=== PATIENT | male | born 1935 | race Caucasian/White ===

== ENCOUNTER 2019-02-19 20:48 | Inpatient (IN) | payer MEDICARE ==
[~2019-02-19] VITALS: Ht 182.9 cm; Wt 117.9 kg
[2019-02-19] MEDS ORDERED: PROSCAR5 MG PO (21:12)
[2019-02-19] MEDS ORDERED: HYDROCODON-ACE1 EAC7 PO (21:13)
[2019-02-19] MEDS ORDERED: VESICARE10 MG PO (21:14)
[2019-02-19] MEDS ORDERED: SENNA8.8 MG/5 M (21:14)
[2019-02-19] MEDS ORDERED: NORVASC10 MG PO (21:15)
[2019-02-19] MEDS ORDERED: ZYRTEC10 MG PO (21:16)
[2019-02-19] MEDS ORDERED: CELEXA20 MG PO (21:17)
[2019-02-19] MEDS ORDERED: METOPROLOL TART25 MG PO (21:17)
[2019-02-19 22:05] LABS: APPEARANCE CLEAR (CLEAR); BILIRUBIN NEGATIVE (NEGATIVE); COLOR YELLOW (YELLOW); GLUCOSE NEGATIVE (NEGATIVE); KETONE NEGATIVE (NEGATIVE); NITRITE NEGATIVE (NEGATIVE); PROTEIN TRACE mg/dL (NEGATIVE); UROBILINOGEN NORMAL (NORMAL)
[2019-02-19 22:06] LABS: BASOPHILS 0.5 % (0-2); EOSINOPHILS 3.8 % (0-7); HEMATOCRIT 34.6 % (42.0-54.0); HEMOGLOBIN 11.1 g/dL (13.5-17.5); IMMATURE GRANULOCYTES 0.1 % (0-5); LYMPHOCYTES 27.8 % (15-50); MCH 27.8 pg (26.0-34.0); MCHC 32.1 g/dL (31.0-37.0); MCV 86.7 fL (80.0-100.0); MEAN PLATELET VOLUME 8.8 fL (7.4-10.4); MONOCYTES 9.4 % (2-11); NEUTROPHILS 58.4 % (40-80); PLATELET COUNT 220 10x3/uL (130-400); RBC 3.99 10x6/uL (4.20-6.10); RDW 16.1 % (11.5-14.5); WBC 8.7 10x3/uL (4.8-10.8)
[2019-02-19 22:28] LABS: ANION GAP 13.4 mmol/L (8-16); BILIRUBIN - TOTAL 0.36 mg/dL (0.2-1.3); CALCIUM 9.7 mg/dL (8.5-10.1); CARBON DIOXIDE 25.4 mmol/L (21.0-32.0); CREATININE - SERUM 2.9 mg/dL (0.6-1.3); POTASSIUM - SERUM 5.8 mmol/L (3.5-5.1); PROTEIN - SERUM 7.1 g/dL (6.4-8.2)
--- NOTE | 2019-02-19 22:32 | NUR ---
BLOOD SUGAR 49. CRITICAL LAB TAKEN BY KYLAH LEMUSAQUATIC ECOLOGIST NURSE. KYLAH LEMUS GAVE 1-AMP OF D50. [address] ARNOLD
[2019-02-20 02:30] VITALS: BP 178/73; BMI 35.3
[2019-02-20 06:16] VITALS: BP 178/73
--- NOTE | 2019-02-20 07:10 | NUR ---
REPORT RECIEVED FROM SET UP MECHANIC AUTOMATIC LINE AND PATIENT CARE ASSUMED. PATIENT LAYING IN BED ON BACK AWAKE, ALERT AND ORIENTED X 4. VSS. PATIENT DENIES ANY NEEDS OR PAIN. WILL CONTINUE WITH PLAN OF CARE. SR UP X 2 BED IN LOW POSITION AND CALL LIGHT IN REACH.
[2019-02-20 08:24] VITALS: BP 157/69
[2019-02-20 09:34] LABS: BASOPHILS 0.5 % (0-2); EOSINOPHILS 4.8 % (0-7); HEMOGLOBIN 11.7 g/dL (13.5-17.5); IMMATURE GRANULOCYTES 0.1 % (0-5); LYMPHOCYTES 19.3 % (15-50); MCH 28.3 pg (26.0-34.0); MCHC 32.5 g/dL (31.0-37.0); MEAN PLATELET VOLUME 9.2 fL (7.4-10.4); MONOCYTES 9.8 % (2-11); NEUTROPHILS 65.5 % (40-80); PLATELET COUNT 218 10x3/uL (130-400); RBC 4.14 10x6/uL (4.20-6.10); RDW 16.3 % (11.5-14.5); WBC 7.9 10x3/uL (4.8-10.8)
[2019-02-20 09:44] LABS: ALBUMIN 3.1 g/dL (3.4-5.0); ANION GAP 13.3 mmol/L (8-16); BILIRUBIN - TOTAL 0.46 mg/dL (0.2-1.3); CALCIUM 9.4 mg/dL (8.5-10.1); CARBON DIOXIDE 25.9 mmol/L (21.0-32.0); COMPLEMENT C4 22.9 mg/dL (17.4-52.2); CREATININE - SERUM 2.7 mg/dL (0.6-1.3); POTASSIUM - SERUM 5.2 mmol/L (3.5-5.1); PROTEIN - SERUM 6.8 g/dL (6.4-8.2)
[2019-02-20 11:26] LABS: ERYTHROCYTE SEDIMENTATION RATE 24 mm/hr (0-20)
[2019-02-20 11:36] VITALS: BP 134/63
--- NOTE | 2019-02-20 14:37 | NUR ---
PATIENT COMPLAINS OF NAUSEA. MEDICATED PER MAR WITH ZOFRAN. WILL CONTINUE TO MONITOR. SR UP X 2 BED IN LOW POSITION AND CALL LIGHT IN REACH.
--- NOTE | 2019-02-20 15:15 | NUR ---
PATIENT STATES THAT FEELS MUCH BETTER. COLLECTED URINE SPECIMEN FROM DAVSI. WILL CONTINUE TO MONITOR.
[2019-02-20 15:23] VITALS: BP 142/73
--- NOTE | 2019-02-20 15:42 | NUR ---
PATIENT RESTING COMFORTABLY IN BED. WILL CONTINUE TO MONITOR. SR UP X 2 BED IN LOW POSITION AND CALL LIGHT IN REACH.
[2019-02-20 15:53] LABS: APPEARANCE CLEAR (CLEAR); BILIRUBIN NEGATIVE (NEGATIVE); COLOR YELLOW (YELLOW); GLUCOSE NEGATIVE (NEGATIVE); KETONE NEGATIVE (NEGATIVE); NITRITE NEGATIVE (NEGATIVE); PROTEIN 1+ mg/dL (NEGATIVE); UROBILINOGEN NORMAL (NORMAL)
[2019-02-20 15:55] LABS: RED CELLS - URINE 25-50 /hpf (0-5); WHITE CELLS - URINE 0-5 /hpf (0-5)
[2019-02-20 15:56] LABS: BACTERIA FEW /hpf (NONE SEEN)
[2019-02-20 16:04] LABS: CREATININE - URINE 74.7 mg/dL (30-125); PROTEIN - URINE 146.6 mg/dL (0.0-11.9)
--- NOTE | 2019-02-20 16:59 | MORECARE ---
CASE MANAGEMENT DISCHARGE SUMMARY PATIENT: GUANACO VALDEZ UNIT: [id number] ADM DATE: 02/20/19 AGE: 84 : 36 SEX: M ROOM/BED: D.2102 AUTHOR: GEO VELÁZQUEZ PHYSICIAN: REFERRING PHYSICIAN: DENNIS BARAJAS MD DATE OF SERVICE: 02/20/19 Discharge Plan Patient Name: GUANACO VALDEZ Facility: [facility] : 1935 Planned Disposition: VA facility Anticipated Discharge Date: 02/20/19 Discharge Date: Expected LOS: 1 Initial Reviewer: [id number] Initial Review Date: 02/20/2019 Generated: 02/20/19 5:58 pm DCPIA - Discharge Planning Initial Assessment Updated by [id number]: Carroll Wick on 02/20/19 4:56 pm * Is the patient Alert and Oriented? Yes * How many steps to enter\exit or inside your home? RAMP * PCP [facility] * Pharmacy [facility] IN [place], [place]. * Preadmission Environment Home with Family * ADLs Partial Dependent * Partial ADLs (Assistance needed) Bathing Medication Management * Equipment Bedside Commode Cane Power Chair or Electric Scooter Shower Chair Wheelchair * Other Equipment [facility] - MEDICAL EQUIPMENT PROVIDER * List name and contact numbers for known caregivers / representatives who currently or will assist patient after discharge: BHAVIK VALDEZ, SPOUSE, LOU VALDEZ, DTR, * Verbal permission to speak to the caregivers and representatives has been obtained from the patient. Yes * Community resources currently utilized Private Duty Care [place] Services * Please name any agencies selected above. PRIVATE DUTY PERSONAL CARE FROM [place], 5 DAYS WEEKLY, 2 HOURS PER DAY * Additional services required to return to the preadmission environment? No * Can the patient safely return to the preadmission environment? Yes * Has this patient been hospitalized within the prior 30 days at any hospital? No Patient Name: GUANACO VALDEZ Page [id number] at 1154 All edits/amendments must be made on the electronic document DICTATION DATE: 04/1657 FINANCIAL INVESTMENT MANAGER: DM 02/20/191657 RPT#: [id number] DC DATE: STATUS: ADM IN [facility] [address] [place] [address] END OF REPORT
--- NOTE | 2019-02-20 17:09 | MORECARE ---
CASE MANAGEMENT DISCHARGE SUMMARY PATIENT: GUANACO VALDEZ UNIT: [id number] ADM DATE: 02/20/19 AGE: 84 : 36 SEX: M ROOM/BED: D.2102 AUTHOR: GEO VELÁZQUEZ PHYSICIAN: REFERRING PHYSICIAN: DENNIS BARAJAS MD DATE OF SERVICE: 02/20/19 Discharge Plan Patient Name: GUANACO VALDEZ Facility: [facility]:[place] : 1935 Planned Disposition: VA facility Anticipated Discharge Date: 02/20/19 Discharge Date: Expected LOS: 1 Initial Reviewer: [id number] Initial Review Date: 02/20/2019 Generated: 02/20/19 6:09 pm Comments DCP- Discharge Planning Updated by [id number]: Carroll Wick on 02/20/19 4:[address] Patient Name: GUANACO VALDEZ Admission Status: ER Accout number: [id number] Admission Date: 02-20-2019 : 1935 Admission Diagnosis: Attending: DENNIS BARAJAS Current LOS: 1 Anticipated DC Date: 02-20-2019 Planned Disposition: [place] facility Primary Insurance: MEDICARE PART A ONLY PLANNED EXTERNAL PROVIDER: [facility] Discharge Planning Comments: CM RECEIVED ORDER FOR TRANSFER TO [place] [facility] OR TRANSFER BACK TO [facility]. CM MET WITH PT IN ROOM TO DISCUSS DISCHARGE PLANNING AND NEEDS. PT REPORTS LIVING AT HOME DEPENDENTLY WITH SPOUSE. PT HAS PERSONAL CARE FROM [place] 5 DAYS PER WEEK, 2 HOURS PER DAY TO ASSIST WITH BATH, PT'S SPOUSE ASSISTS WITH MEDICATION MANAGEMENT. PT HAS BEDSIDE COMMODE, CANE, POWER SCOOTER, SHOWER CHAIR AND WHEELCHAIR FROM THE [place]. CM DISCUSSED ORDER FOR TRANSFER. PT STATES HE WOULD LIKE TO TRANSFER TO [place] IN [place] IF POSSIBLE. . CM CALLED VA EXPEDITOR, GEMMA, , PROVIDED REQUEST FOR VA TRANSFER, RENAL CONSULTING SERVICES PROJECT MANAGER AND MED 2 CONTACT INFORMATION . GEMMA INFORMED CM THAT THE HEALTH PLAN MANAGER WOULD CONTACT THE HOSPITAL WHEN BED BECOMES AVAILABLE. CM WAITING BED TO BECOME AVAILABLE FOR VA TRANSFER, PT IS ON THE LIST. CM TO CONTINUE TO FOLLOW AND ASSIST NEEDED. Blood Bank Laboratory Technician: Carroll Wick DCPIA - Discharge Planning Initial Assessment Updated by [email or web address]: Carroll Wick on 02/20/19 4:56 pm * Is the patient Alert and Oriented? Yes * How many steps to enter\exit or inside your home? RAMP * [facility] * [facility]acy [facility] IN [place], [place]. * Preadmission Environment Home with Family * ADLs Partial Dependent * Partial ADLs (Assistance needed) Bathing Medication Management * Equipment Bedside Commode Cane Power Chair or Electric Scooter Shower Chair Wheelchair * Other Equipment [facility] - MEDICAL EQUIPMENT PROVIDER * List name and contact numbers for known caregivers / representatives who currently or will assist patient after discharge: BHAVIK VALDEZ, SPOUSE, LOU VALDEZ, DTR, * Verbal permission to speak to the caregivers and representatives has been obtained from the patient. Yes * Community resources currently utilized Private Duty Care [place] Services * Please name any agencies selected above. PRIVATE DUTY PERSONAL CARE FROM [place], 5 DAYS WEEKLY, 2 HOURS PER DAY * Additional services required to return to the preadmission environment? No * Can the patient safely return to the preadmission environment? Yes * Has this patient been hospitalized within the prior 30 days at any hospital? No Last DP export: 02/20/19 3:59 p Patient Name: GUANACO VALDEZ Page [id number] at 1709 All edits/amendments must be made on the electronic document DICTATION DATE: 02/20/191707 MANAGER LONG TERM CARE: CARLITO 02/20/191707 RPT#: [id number] DC DATE: STATUS: ADM IN [facility] [address] [place] [address] END OF REPORT
--- NOTE | 2019-02-20 18:21 | NUR ---
PATIENT STABLE UNCHANGED.
--- NOTE | 2019-02-20 19:50 | NUR ---
RECIEVED BEDSIDE. ROUNDS COMPLETED. VSS, AAOX3, NO S/S OF RR DISTRESS. ABDOMEN APPEARS DISTENDED. LUNGS SOUNDS CRACKLY ON KRISTA/LLQ. BED EAGLE PROVIDED FOR PT PER PT REQUEST. WILL CPOC. CL IN REACH BED IN LOW.
[2019-02-20 20:00] VITALS: BP 145/65
--- NOTE | 2019-02-20 21:00 | NUR ---
FOUND PT VOMITING. PT STATES HE VOMITED THIS AM AM AND MED WAS GIVEN. 2ML ZOFRAN GIVEN AT THIS TIME. PT DENEIS ANY FURTHER NEEDS FOR COMFORT CARE WILL CTM.
--- NOTE | 2019-02-20 22:42 | NUR ---
PT C/O HEARTBURN. CALLED [employer]. SQL DATABASE ADMINISTRATOR ORDERED 20MG PEPCID [id number], ALSO STATE TO GIVE FIRST DOSE NOW.
[2019-02-21] VITALS: BP 135/59
[2019-02-21 04:00] VITALS: BP 147/68
[2019-02-21 05:54] LABS: BASOPHILS 0.5 % (0-2); EOSINOPHILS 2.2 % (0-7); HEMATOCRIT 35.5 % (42.0-54.0); HEMOGLOBIN 11.4 g/dL (13.5-17.5); IMMATURE GRANULOCYTES 0.1 % (0-5); LYMPHOCYTES 19.5 % (15-50); MCH 28.1 pg (26.0-34.0); MCHC 32.1 g/dL (31.0-37.0); MCV 87.4 fL (80.0-100.0); MEAN PLATELET VOLUME 9.1 fL (7.4-10.4); MONOCYTES 9.4 % (2-11); NEUTROPHILS 68.3 % (40-80); PLATELET COUNT 202 10x3/uL (130-400); RBC 4.06 10x6/uL (4.20-6.10); RDW 15.9 % (11.5-14.5); WBC 7.8 10x3/uL (4.8-10.8)
[2019-02-21 06:09] LABS: ALBUMIN 2.6 g/dL (3.4-5.0); ANION GAP 12.1 mmol/L (8-16); BILIRUBIN - TOTAL 0.44 mg/dL (0.2-1.3); CALCIUM 8.9 mg/dL (8.5-10.1); CARBON DIOXIDE 26.4 mmol/L (21.0-32.0); CREATININE - SERUM 2.4 mg/dL (0.6-1.3); POTASSIUM - SERUM 4.5 mmol/L (3.5-5.1); PROTEIN - SERUM 6.4 g/dL (6.4-8.2)
--- NOTE | 2019-02-21 07:27 | NUR ---
MORNING ROUNDS MADE. PT SITTING UP IN BED. DENIES PAIN AT THIS TIME. A/O X4. R AC IV SL. RM AIR. DAVIS IN PLACE, DRAINING BY GRAVITY, CLEAR YELLOW URINE NOTED. LUNGS CLEAR. HEART RRR. DENIES FURTHER CONCERNS AT THIS TIME. NON SKID SOCKS ON. BED LOWERED AND LOCKED. CL IN REACH. WILL CTM.
[2019-02-21 08:00] VITALS: BP 147/66
[2019-02-21 08:58] VITALS: Ht 182.9 cm; Wt 117.9 kg
--- NOTE | 2019-02-21 09:53 | NUR ---
PT SITTING UP IN EATING BREAKFAST. VITALS STABLE. TOOK MEDS WITHOUT DIFFICULTY. NS @ 75 CC/HR TO R AC. DRSG C/D/I. NO REDNESS OR EDEMA. DENIES PAIN AT THIS TIME. SAFETY PRECAUTIONS IN PLACE. WILL CTM.
--- NOTE | 2019-02-21 10:35 | NUR ---
[facility] CALLED TO GET PT INFORMATION FAXED TO [phone]. AWAITING INFORMATION.
[2019-02-21 11:13] LABS: ANA REFLEX - DIRECT Negative (Negative)
[2019-02-21 12:11] VITALS: BP 112/49
--- NOTE | 2019-02-21 12:22 | NUR ---
PT SITTING UP RESTING. STATED HE ENJOYED LUNCH. PT ASKED ME TO HAND HIM HIS BILL FOLD AND GLASSES FROM PERSONAL BELONGINGS BAG. HANDED PT HIS BLACK BILL FOLD AND HIS GOLD GLASSES. INFORMED PT TO NOT LOOSE HIS BILL FOLD AND HE COMMENTED "IT DOESNT HAVE ANY MONEY IN IT" NO FURTHER CONCERNS AT THIS TIME. WILL CTM.
--- NOTE | 2019-02-21 12:42 | NUR ---
I CONCUR WITH THE ASSESSMENT PERFORMED BY AB LARA
--- NOTE | 2019-02-21 14:37 | MORECARE ---
CASE MANAGEMENT DISCHARGE SUMMARY PATIENT: GUANACO VALDEZ UNIT: [id number] ADM DATE: 02/20/19 AGE: 84 : 36 SEX: M ROOM/BED: D.2102 AUTHOR: GEO VELÁZQUEZ PHYSICIAN: REFERRING PHYSICIAN: DENNIS BARAJAS MD DATE OF SERVICE: 02/21/19 Discharge Plan Patient Name: GUANACO VALDEZ Facility: [facility]:[place] : 1935 Planned Disposition: Acute Care Hospital Anticipated Discharge Date: 02/21/19 Discharge Date: Expected LOS: 1 Initial Reviewer: [email or web address] Initial Review Date: 02/20/2019 Generated: 02/21/19 3:37 pm Comments DCP- Discharge Planning Updated by [id number]: Carroll Wick on 02/20/19 4:[address] Patient Name: GUANACO VALDEZ Admission Status: ER Accout number: [id number] Admission Date: 02-20-2019 : 1935 Admission Diagnosis: Attending: DENNIS BARAJAS Current LOS: 1 Anticipated DC Date: 02-20-2019 Planned Disposition: [place] facility Primary Insurance: MEDICARE PART A ONLY PLANNED EXTERNAL PROVIDER: [facility] Discharge Planning Comments: CM RECEIVED ORDER FOR TRANSFER TO [place] [facility]ITAL OR TRANSFER BACK TO [facility]. CM MET WITH PT IN ROOM TO DISCUSS DISCHARGE PLANNING AND NEEDS. PT REPORTS LIVING AT HOME DEPENDENTLY WITH SPOUSE. PT HAS PERSONAL CARE FROM [place] 5 DAYS PER WEEK, 2 HOURS PER DAY TO ASSIST WITH BATH, PT'S SPOUSE ASSISTS WITH MEDICATION MANAGEMENT. PT HAS BEDSIDE COMMODE, CANE, POWER SCOOTER, SHOWER CHAIR AND WHEELCHAIR FROM THE [place]. CM DISCUSSED ORDER FOR TRANSFER. PT STATES HE WOULD LIKE TO TRANSFER TO [place] IN [place] IF POSSIBLE. . CM CALLED VA EXPEDITOR, GEMMA, , PROVIDED REQUEST FOR VA TRANSFER, RENAL GUN WELDER AND MED 2 CONTACT INFORMATION . GEMMA INFORMED CM THAT THE MINIATURE MODEL MAKER WOULD CONTACT THE HOSPITAL WHEN BED BECOMES AVAILABLE. CM WAITING BED TO BECOME AVAILABLE FOR VA TRANSFER, PT IS ON THE LIST. CM TO CONTINUE TO FOLLOW AND ASSIST NEEDED. Pamphlet Distributor: Carroll Wikc DCPIA - Discharge Planning Initial Assessment Updated by [id number]: Carroll Wick on 02/20/19 4:56 pm * Is the patient Alert and Oriented? Yes * How many steps to enter\exit or inside your home? RAMP * [facility]CP [facility] * [place]acy [place] [facility] IN [place], [place]. * Preadmission Environment Home with Family * ADLs Partial Dependent * Partial ADLs (Assistance needed) Bathing Medication Management * Equipment Bedside Commode Cane Power Chair or Electric Scooter Shower Chair Wheelchair * Other Equipment [facility] - MEDICAL EQUIPMENT PROVIDER * List name and contact numbers for known caregivers / representatives who currently or will assist patient after discharge: BHAVIK VALDEZ, SPOUSE, LOU VALDEZ, DTR, * Verbal permission to speak to the caregivers and representatives has been obtained from the patient. Yes * Community resources currently utilized Private Duty Care [place] Services * Please name any agencies selected above. PRIVATE DUTY PERSONAL CARE FROM [place], 5 DAYS WEEKLY, 2 HOURS PER DAY * Additional services required to return to the preadmission environment? No * Can the patient safely return to the preadmission environment? Yes * Has this patient been hospitalized within the prior 30 days at any hospital? No Last DP export: 02/20/19 4:09 p Patient Name: GUANACO VALDEZ Page 96617 at 1437 All edits/amendments must be made on the electronic document DICTATION DATE: 02/21/191435 SERVICE DELIVERY SUPERVISOR: CARLITO 02/21/191435 RPT#: [id number] DC DATE: STATUS: ADM IN [facility] [address] [place] [address] END OF REPORT
--- NOTE | 2019-02-21 14:45 | MORECARE ---
CASE MANAGEMENT DISCHARGE SUMMARY PATIENT: GUANACO VALDEZ UNIT: [id number] ADM DATE: 02/20/19 AGE: 84 : 36 SEX: M ROOM/BED: D.2102 AUTHOR: MELANIA,DOC PHYSICIAN: REFERRING PHYSICIAN: DENNIS BARAJAS MD DATE OF SERVICE: 02/21/19 Discharge Plan Patient Name: GUANACO VALDEZ Facility: [facility]:[place] : 1935 Planned Disposition: Acute Care Hospital Anticipated Discharge Date: 02/21/19 Discharge Date: Expected LOS: 1 Initial Reviewer: [id number] Initial Review Date: 02/20/2019 Generated: 02/21/19 3:45 pm Comments DCP- Discharge Planning Updated by [email or web address]: Craroll Wick on 02/21/19 1:[address] Patient Name: GUANACO VALDEZ Encounter No: [id number] : 1935 Primary Insurance: MEDICARE PART A ONLY Anticipated DC Date: 02-21-2019 Planned Disposition: Acute Care Hospital External Planned Provider: [facility] DCP follow-up note: CM REVIEWED CHART, THERE IS NO TRANSFER BACK AGREEMENT IN THE CHART. PAGED AND SPOKE TO TIM PELLETIER REGARDING ORDER TO TRANSFER TO [facility] OR BACK TO [facility]. CM EXPLAINED PROCESS OF TRANSFER, THAT PT IS ON THE [facility] TRANSFER LIST WITH NO AVAILABLE BEDS; CM ASKED FOR REASON FOR TRANSFER REQUEST. AFTER SADDLE TREE STITCHER CHECKED WITH DR. BARAJAS, CM WAS ADVISED THAT THE DOCTOR ACCEPTED THE PT THINKING PT WAS A DIALYSIS PATIENT AND THAT THE SYMPTOMS THAT ARE BEING MANAGED COULD BE MANAGED AT [facility]. CM SPOKE TO PT IN ROOM WHO IS STILL WILLING FOR VA TRANSFER OR BACK TO [facility] STATING IT IS CLOSER TO [place] WHERE I LIVE. CM CALLED [employer] MANAGER, REQUESTED ADMINISTRATIVE APPROVAL. CARISSA PROVIDED APPROVAL FOR ADMIN SALES REPRESENTATIVE DOOR TO DOOR DANIEL GARNER. CM CALLED [facility], , SPOKE TO JOSR AND PROVIDED TRANSFER REQUEST INFORMATION. CM RECEIVED CALL FROM JOSR OF [facility], WHO INFORMED CM THAT PT WAS TRANSFERRED FROM ER TO ER, THIS WILL NOT BE A TRANSFER BACK AND JOSR WILL CHECK TO SEE IF THE HOSPITALISTS AT [facility] WILL ACCEPT AND NOTIFY CM SHORTLY. CM WAITING ADMISSION DETERMINATION FROM [facility] AND BED AVAILABILITY AT [facility] FOR TRANSFER. Carroll Wick, CASE MANAGEMENT DCP- Discharge Planning Updated by [id number]: Carroll Wick on 02/20/19 4:[address] Patient Name: GUANACO VALDEZ Admission Status: ER Accout number: [id number] Admission Date: 02-20-2019 : 1935 Admission Diagnosis: Attending: DENNIS BARAJAS Current LOS: 1 Anticipated DC Date: 02-20-2019 Planned Disposition: [facility] facility Primary Insurance: MEDICARE PART A ONLY PLANNED EXTERNAL PROVIDER: [facility] Discharge Planning Comments: CM RECEIVED ORDER FOR TRANSFER TO [facility] OR TRANSFER BACK TO [facility]. CM MET WITH PT IN ROOM TO DISCUSS DISCHARGE PLANNING AND NEEDS. PT REPORTS LIVING AT HOME DEPENDENTLY WITH SPOUSE. PT HAS PERSONAL CARE FROM [facility] 5 DAYS PER WEEK, 2 HOURS PER DAY TO ASSIST WITH BATH, PT'S SPOUSE ASSISTS WITH MEDICATION MANAGEMENT. PT HAS BEDSIDE COMMODE, CANE, POWER SCOOTER, SHOWER CHAIR AND WHEELCHAIR FROM THE [facility]. CM DISCUSSED ORDER FOR TRANSFER. PT STATES HE WOULD LIKE TO TRANSFER TO [facility] IN [place] IF POSSIBLE. . CM CALLED VA EXPEDITOR, GEMMA, , PROVIDED REQUEST FOR VA TRANSFER, RENAL SADDLE TREE STITCHER AND MED 2 CONTACT INFORMATION . GEMMA INFORMED CM THAT THE CUBE MACHINE TENDER WOULD CONTACT THE HOSPITAL WHEN BED BECOMES AVAILABLE. CM WAITING BED TO BECOME AVAILABLE FOR VA TRANSFER, PT IS ON THE LIST. CM TO CONTINUE TO FOLLOW AND ASSIST NEEDED. Tree Expert: Carroll Wick DCPIA - Discharge Planning Initial Assessment Updated by [id number]: Carroll Wick on 02/20/19 4:56 pm * Is the patient Alert and Oriented? Yes * How many steps to enter\exit or inside your home? RAMP * PCP [facility] * Pharmacy [facility] IN [place], [place]. * Preadmission Environment Home with Family * ADLs Partial Dependent * Partial ADLs (Assistance needed) Bathing Medication Management * Equipment Bedside Commode Cane Power Chair or Electric Scooter Shower Chair Wheelchair * Other Equipment [facility] - MEDICAL EQUIPMENT PROVIDER * List name and contact numbers for known caregivers / representatives who currently or will assist patient after discharge: BHAVIK VALDEZ, SPOUSE, LOU VALDEZ DTR, * Verbal permission to speak to the caregivers and representatives has been obtained from the patient. Yes * Community resources currently utilized [facility] [place] [facility] * Please name any agencies selected above. [facility]Y [facility] [place], 5 DAYS WEEKLY, 2 HOURS PER DAY * Additional services required to return to the preadmission environment? No * Can the patient safely return to the preadmission environment? Yes * Has this patient been hospitalized within the prior 30 days at any hospital? No Last DP export: 02/21/19 1:37 p Patient Name: GUANACO VALDEZ Page 06919 at 1445 All edits/amendments must be made on the electronic document DICTATION DATE: 02/21/191443 HOG CONFINEMENT SYSTEM MANAGER: CARLITO 02/21/191443 RPT#: [id number] DC DATE: STATUS: ADM IN [facility] [address] [place] [address] END OF REPORT
[2019-02-21 16:00] VITALS: BP 133/49
--- NOTE | 2019-02-21 19:50 | NUR ---
ROUNDS COMPLETED. VSS, AAOX3, NO S/S OF RR DISTRESS, RR EVEN AND UNLABORED. PT STATES HE IS FEELING BETTER TONIGHT, STATES HE HAS NOT HAVE ANY EPISODES OF VOMITING. PT DENIES ANY FURTHER NEEDS FOR COMFORT CARE AT THIS TIME. WILL CPOC. CL IN REACH, BED IN LOW, SR UP X2.
[2019-02-22] VITALS: BP 140/60
--- NOTE | 2019-02-22 01:23 | NUR ---
WALKED INTO PT'S ROOM AND FOUND PT'S IV IN HIS HAND. PT STATES HE WAS TRYING TO ADJUST HIMSELF IN BED AND HE ACCIDENTALLY PULLED IT OUT. NO S/S OF BLEEDING NOTED PIV CATHETER TIP INTACT. PLACED 2X2 GAUZE ON THE SITE AND TAPED. RESTARTED A NEW PIV ON RFA 22G X1 STICK. PT TOLERATES WELL. NS CURRENTLY INFUSING @75MLS/HR. PT DENIES ANY FURTHER NEED FOR COMFORT CARE WILL CTM. CL IN REACH, BED IN LOW.
[2019-02-22 04:00] VITALS: BP 156/67
[2019-02-22 05:07] LABS: BASOPHILS 0.4 % (0-2); EOSINOPHILS 4.3 % (0-7); HEMATOCRIT 33.1 % (42.0-54.0); HEMOGLOBIN 10.5 g/dL (13.5-17.5); IMMATURE GRANULOCYTES 0.3 % (0-5); LYMPHOCYTES 25.8 % (15-50); MCHC 31.7 g/dL (31.0-37.0); MCV 88.3 fL (80.0-100.0); MEAN PLATELET VOLUME 9.3 fL (7.4-10.4); MONOCYTES 10.9 % (2-11); NEUTROPHILS 58.3 % (40-80); PLATELET COUNT 184 10x3/uL (130-400); RBC 3.75 10x6/uL (4.20-6.10); RDW 15.8 % (11.5-14.5); WBC 7.4 10x3/uL (4.8-10.8)
[2019-02-22 05:26] LABS: ANION GAP 11.8 mmol/L (8-16); CALCIUM 8.8 mg/dL (8.5-10.1); CARBON DIOXIDE 23.8 mmol/L (21.0-32.0); CREATININE - SERUM 2.2 mg/dL (0.6-1.3); POTASSIUM - SERUM 4.6 mmol/L (3.5-5.1)
--- NOTE | 2019-02-22 07:10 | NUR ---
REPORT RECEIVED FROM CLINICAL REHABILITATION AIDE AND PATIENT CARE ASSUMED. PATIENT LAYING IN BED ON BACK AWAKE, ALERT AND ORIENTED X 4. PATIENT IS STABLE AND VSS. PATIENT DENIES ANY NEEDS OR PAIN. WILL CONTINUE WITH PLAN OF CARE. SR UP X 2 BED IN LOW POSITION AND CALL LIGHT IN REACH.
[2019-02-22 08:22] VITALS: BP 149/68
--- NOTE | 2019-02-22 09:46 | NUR ---
Nutrition Follow Up: Renal ADA diet with 100% intake of breakfast Pt reports no nausea Nursing reports observed no swallowing problems Pt has no questions about nutrition and no nutritional requests Encouraged good po intake to help pt maintain strength RD following
[2019-02-22 12:12] VITALS: BP 140/56
[2019-02-22 12:12] LABS: UPE RAND - ALBUMIN 71.3 % (()); UPE RAND - BETA GLOBULIN 9.4 % (()); UPE RAND - GAMMA GLOBULIN 8.4 % (())
--- NOTE | 2019-02-22 13:00 | NUR ---
PATIENT IS STABLE AND UNCHANGED. VSS. WILL CONTINUE TO MONITOR.
[2019-02-22 15:11] LABS: SPE - A/G RATIO 0.8 (0.7-1.7); SPE - ALPHA-1 GLOBULIN 0.3 g/dL (0.0-0.4); SPE - ALPHA-2 GLOBULIN 0.9 g/dL (0.4-1.0); SPE - GAMMA GLOBULIN 1.4 g/dL (0.4-1.8); SPE - M-SPIKE Not Observed g/dL (Not Observed); SPE - TOTAL PROTEIN 6.6 g/dL (6.0-8.5)
[2019-02-22 16:36] VITALS: BP 138/62
[2019-02-22 20:00] VITALS: BP 138/52
--- NOTE | 2019-02-22 20:04 | NUR ---
PT RESTING IN BED ALERT AND ORIENTED. PT REQUESTED EXTRA BLANKET. RR EVEN AND UNLABORED. BED LOW CALL LIGHT WITHIN REACH. WILL CONTINUE TO MONITOR.
[2019-02-23] VITALS: BP 151/57
[2019-02-23 04:00] VITALS: BP 149/62
[2019-02-23 04:54] LABS: HEMOGLOBIN 10.6 g/dL (13.5-17.5); LYMPHOCYTES 22.9 % (15-50); MCH 28.3 pg (26.0-34.0); MCHC 32.1 g/dL (31.0-37.0); MCV 88.2 fL (80.0-100.0); MEAN PLATELET VOLUME 9.2 fL (7.4-10.4); NEUTROPHILS 57.9 % (40-80); PLATELET COUNT 195 10x3/uL (130-400); RBC 3.74 10x6/uL (4.20-6.10); RDW 15.4 % (11.5-14.5); WBC 7.3 10x3/uL (4.8-10.8)
[2019-02-23 05:00] LABS: ANION GAP 13.6 mmol/L (8-16); CALCIUM 8.9 mg/dL (8.5-10.1); CARBON DIOXIDE 21.9 mmol/L (21.0-32.0); POTASSIUM - SERUM 4.5 mmol/L (3.5-5.1)
[2019-02-23 07:51] VITALS: BP 152/64
--- NOTE | 2019-02-23 10:07 | NUR ---
PATIENT IS SITTING UP IN BED. HE IS SLUMPED TO THE RIGHT SIDE, AND NEEDS READJUSTED IN BED FREQUENTLY. HE WAS ABLE TO USE THE BEDPAN AND HAD A VERY SMALL LOOSE BM. HE JUST HAD A BATH. HE HAS A SORE ON HIS RIGHT HAND. A SKIN TEAR. THERE IS BRUISING ON HIS HANDS AND HIS SKIN IS THIN. HE HAS A HISTORY OF A STROKE. HE IS ALERT AND ORIENTED.
[2019-02-23 10:50] VITALS: BP 144/57
--- NOTE | 2019-02-23 11:59 | NUR ---
I have reviewed this patient and I concur with the Shift Assessment completed by the Licensed Practical Nurse today this shift.
[2019-02-23 15:16] VITALS: BP 157/51
[2019-02-23 17:07] LABS: ANCA - ANTIMYELOPEROXIDASE <9.0 U/mL (0.0-9.0); ANCA - ANTIPROTEINASE 3 <3.5 U/mL (0.0-3.5); ANCA - ATYPICAL <1:20 titer (Neg:<1:20); ANCA - CYTOPLASMIC <1:20 titer (Neg:<1:20); ANCA - PERINUCLEAR <1:20 titer (Neg:<1:20)
--- NOTE | 2019-02-23 19:11 | NUR ---
EVENING ROUNDS MADE. PT SITTING UP IN BED. DENIES PAIN AT THIS TIME. A/O X 4. L FOREARM IV WITH NS @ 50 CC/HR, PATENT, NO REDNESS OR EDEMA NOTED. DRSG C/D/I. 2L O2 VIA NC. WEAKNESS TO L SIDE. DAVIS IN PLACE, DRAINING TO GRAVITY. LIGHT EMMANUEL URINE NOTED. LUNGS CLEAR. HEART RRR. L HAND WRAPPED WITH KERLEX. NO FURTHER CONCERNS AT THIS TIME. SAFETY PRECAUTIONS IN PLACE. YELLOW GOWN ON. NON SKID SOCK ON. SR UP X 2. CL IN REACH. BED LOWERED AND LOCKED. WILL CTM.
[2019-02-23 20:13] VITALS: BP 163/72
--- NOTE | 2019-02-23 20:22 | NUR ---
PT TOOK MEDICATION WITHOUT DIFFICULTY. 2 UNITS INSULIN GIVEN TO R ARM. DENIES FURTHER CONCERNS AT THIS TIME. PT STATES HE WOULD LIKE TO REST. LIGHTS OFF. BED LOWERED AND LOCKED. CL IN REACH. WILL CTM.
[2019-02-24] VITALS (7 sets, daily range): BP systolic 129–154; BP diastolic 49–67
--- NOTE | 2019-02-24 02:59 | NUR ---
I have reviewed this patient and I concur with the Shift Assessment completed by the Licensed Practical Nurse today this shift.
--- NOTE | 2019-02-24 04:28 | NUR ---
PT RESTING COMFORTABLY. BREATHING EVEN AND UNLABORED. SAFETY PRECAUTIONS IN PLACE. WILL CTM.
[2019-02-24 05:02] LABS: BASOPHILS 0.7 % (0-2); HEMATOCRIT 31.5 % (42.0-54.0); HEMOGLOBIN 10.1 g/dL (13.5-17.5); IMMATURE GRANULOCYTES 0.3 % (0-5); MCHC 32.1 g/dL (31.0-37.0); MCV 87.3 fL (80.0-100.0); MEAN PLATELET VOLUME 8.8 fL (7.4-10.4); MONOCYTES 13.8 % (2-11); NEUTROPHILS 57.2 % (40-80); PLATELET COUNT 162 10x3/uL (130-400); RBC 3.61 10x6/uL (4.20-6.10); RDW 15.5 % (11.5-14.5)
[2019-02-24 05:05] LABS: CALCIUM 8.6 mg/dL (8.5-10.1); CARBON DIOXIDE 21.7 mmol/L (21.0-32.0); CREATININE - SERUM 1.7 mg/dL (0.6-1.3)
[2019-02-24 05:12] LABS: POTASSIUM - SERUM 3.7 mmol/L (3.5-5.1)
--- NOTE | 2019-02-24 07:44 | NUR ---
AAOX4. ON ROOM AIR, DAVIS CATHETER PRESENT, IV TO LEFT FOREARM PATENT, NS AT 50ML/HR, LEFT SIDED WEAKNESS, BEDBOUND, DENIES ANY CURRENT NEEDS OR DISCOMFORTS, BED LOWERED AND LOCKED, CALL LIGHT WITHIN REACH. CPOC
--- NOTE | 2019-02-24 14:24 | NUR ---
I have reviewed this patient and I concur with the Shift Assessment completed by the Licensed Practical Nurse today this shift.
--- NOTE | 2019-02-24 14:32 | NUR ---
AAOX4. ABLE TO TRANSFER SAFELY WITH ONE PERSON ASSIST. PIVOTS WELL. SAT UP IN CHAIR FOR 2 HOURS, STOPPED IV FLUIDS, LEFT FOREARM IV PATENT, ON ROOM AIR, DENIES ANY NEEDS OR DISCOMFORTS, BED LOWERED AND LOCKED, CALL LIGHT WITHIN REACH. CPOC
--- NOTE | 2019-02-24 21:45 | NUR ---
ROUNDS COMPLETED. VSS, AAOX3, NO S/S OF RR DISTRESS. RR EVEN AND UNLABORED. DRESSING TO LFA AND ELBOW C/D/I. BRUISES OF BOTH ARMS. PT CURRENTLY RESTING IN BED WITH BOTH EYES OPEN. DENIES ANY FURTHER NEED AT THIS TIME. WILL CTM. CL IN REACH, BED IN LOW, SR UP X2.
--- NOTE | 2019-02-24 22:42 | NUR ---
FOUND PT VOMITING. CLEANED PT UP AND ADMINISTRED 2ML 4MG/2L ZOFRAN AT THIS TIME. PT CURRENTLY RESTING IN BED. WILL CTM.
[2019-02-25 03:25] VITALS: BP 141/60
[2019-02-25 04:41] LABS: ANION GAP 11.5 mmol/L (8-16); CALCIUM 9.1 mg/dL (8.5-10.1); CARBON DIOXIDE 25.3 mmol/L (21.0-32.0); CREATININE - SERUM 1.6 mg/dL (0.6-1.3); POTASSIUM - SERUM 3.8 mmol/L (3.5-5.1)
[2019-02-25 04:43] LABS: BASOPHILS 0.4 % (0-2); EOSINOPHILS 2.6 % (0-7); HEMATOCRIT 31.5 % (42.0-54.0); HEMOGLOBIN 10.1 g/dL (13.5-17.5); IMMATURE GRANULOCYTES 0.3 % (0-5); LYMPHOCYTES 19.4 % (15-50); MCH 27.8 pg (26.0-34.0); MCHC 32.1 g/dL (31.0-37.0); MCV 86.8 fL (80.0-100.0); MEAN PLATELET VOLUME 9.7 fL (7.4-10.4); NEUTROPHILS 64.3 % (40-80); PLATELET COUNT 160 10x3/uL (130-400); RBC 3.63 10x6/uL (4.20-6.10); RDW 15.7 % (11.5-14.5)
--- NOTE | 2019-02-25 07:45 | NUR ---
AM ROUNDS COMPLETED. INTRODUCED MYSELF TO PT PRIMARY RN FOR TODAYS SHIFT. PT IS A&O LYING BACK IN BED RESTING QUIETLY. PT STATES HE IS FEELING "ALRIGHT" OVERALL BUT INQUIRING ABOUT DISCHARGE. I THINK WE ARE WAITING ON A BED FROM THE BUT I WILL REVIEW CHARTS AND NOTES AND FIND OUT. SHIFT ASSESSMENT COMPLETED. PT C/O BILAT FEET BEING SORE UPON ASSESSING NOTED LEFT HEEL TO HAVE A SORE THAT APPEARS TO BE A CALUS. SKIN IS INTACT BUT HEEL IS BOGGY. ELEVATED BILAT FEET ON PILLOW AND BRIDGED HEELS. PT VOICED THANKS AND STATES IT FEELS BETTER. NO CURRENT NEED FOR WOUND CARE IT IS CLOSED AND DOESNT APPEAR TO BE INFECTED WILL PLACE CUSHION DRSG FOR COMFORT AND CONTINUE TO KEEP BRIDGED MUCH POSSIBLE. DAVIS IN PLACE DRAINING TO GRAVITY CLEAR YELLOW URINE OFF L.SIDE OF BED. STAT LOCK SECURED TO L.INNER THIGH. PT DENIES ANY CURRENT PAIN OR NEEDS AT THIS TIME. REQUESTING PRN TUMS FOR HEARTBURN. WILL PULL MORNING MEDICATIONS AND CPOC.
[2019-02-25 09:00] VITALS: BP 132/68
[2019-02-25 09:08] LABS: ANTI-GLOMERULAR BASMENT MEMBRN 10 units (0-20)
[2019-02-25 12:25] VITALS: BP 140/65
--- NOTE | 2019-02-25 12:42 | NUR ---
PT SITTING UP IN BEDSIDE CHAIR EATING LUNCH. PT STATES HE IS FEELING WELL AND DENIES ANY CURRENT PAIN OR NEEDS AT THIS TIME. NO FAMILY PRESENT. CL IN REACH, WILL CTM.
--- NOTE | 2019-02-25 13:56 | MORECARE ---
CASE MANAGEMENT DISCHARGE SUMMARY PATIENT: GUANACO VALDEZ UNIT: [id number] ADM DATE: 02/20/19 AGE: 84 : 36 SEX: M ROOM/BED: D.2102 AUTHOR: MELANIA,DOC PHYSICIAN: REFERRING PHYSICIAN: DENNIS BARAJAS MD DATE OF SERVICE: 02/25/19 Discharge Plan Patient Name: GUANACO VALDEZ Facility: [facility]:[place] : 1935 Planned Disposition: Inpatient Rehab Anticipated Discharge Date: 02/26/19 Discharge Date: Expected LOS: 6 Initial Reviewer: [id number] Initial Review Date: 02/20/2019 Generated: 02/25/19 2:55 pm Comments DCP- Discharge Planning Updated by [id number]: Carroll Wick on 02/21/19 1:[address] Patient Name: GUANACO VALDEZ Encounter No: [id number] : 1935 Primary Insurance: MEDICARE PART A ONLY Anticipated DC Date: 02-21-2019 Planned Disposition: Acute Care Hospital External Planned Provider: [facility] DCP follow-up note: CM REVIEWED CHART, THERE IS NO TRANSFER BACK AGREEMENT IN THE CHART. PAGED AND SPOKE TO TIM PELLETIER REGARDING ORDER TO TRANSFER TO CT OR BACK TO [facility]. CM EXPLAINED PROCESS OF TRANSFER, THAT PT IS ON THE CT TRANSFER LIST WITH NO AVAILABLE BEDS; CM ASKED FOR REASON FOR TRANSFER REQUEST. AFTER DIRECTOR DATA ANALYTICS CHECKED WITH DR. BARAJAS, CM WAS ADVISED THAT THE DOCTOR ACCEPTED THE PT THINKING PT WAS A DIALYSIS PATIENT AND THAT THE SYMPTOMS THAT ARE BEING MANAGED COULD BE MANAGED AT [facility]. CM SPOKE TO PT IN ROOM WHO IS STILL WILLING FOR VA TRANSFER OR BACK TO [facility] STATING IT IS CLOSER TO [place] WHERE I LIVE. CM CALLED [facility] CRITICAL CARE NURSE PRACTITIONER, REQUESTED ADMINISTRATIVE APPROVAL. CARISSA PROVIDED APPROVAL FOR ADMIN INSURANCE COMPLIANCE ANALYST DANIEL GARNER. CM CALLED [facility] EASY ADMIT LINE, , SPOKE TO JOSR AND PROVIDED TRANSFER REQUEST INFORMATION. CM RECEIVED CALL FROM JOSR OF [facility] EASY ADMIT LINE, WHO INFORMED CM THAT PT WAS TRANSFERRED FROM ER TO ER, THIS WILL NOT BE A TRANSFER BACK AND JOSR WILL CHECK TO SEE IF THE HOSPITALISTS AT [facility] WILL ACCEPT AND NOTIFY CM SHORTLY. CM WAITING ADMISSION DETERMINATION FROM [facility] AND BED AVAILABILITY AT [facility] FOR TRANSFER. Carroll Wick, CASE MANAGEMENT DCP- Discharge Planning Updated by [id number]: Carroll Wick on 02/20/19 4:[address] Patient Name: GUANACO VALDEZ Admission Status: ER Accout number: [id number] Admission Date: 02-20-2019 : 1935 Admission Diagnosis: Attending: DENNIS BARAJAS Current LOS: 1 Anticipated DC Date: 02-20-2019 Planned Disposition: [place] facility Primary Insurance: MEDICARE PART A ONLY PLANNED EXTERNAL PROVIDER: [facility] Discharge Planning Comments: CM RECEIVED ORDER FOR TRANSFER TO [place] HOSPITAL OR TRANSFER BACK TO [facility]. CM MET WITH PT IN ROOM TO DISCUSS DISCHARGE PLANNING AND NEEDS. PT REPORTS LIVING AT HOME DEPENDENTLY WITH SPOUSE. PT HAS PERSONAL CARE FROM CT 5 DAYS PER WEEK, 2 HOURS PER DAY TO ASSIST WITH BATH, PT'S SPOUSE ASSISTS WITH MEDICATION MANAGEMENT. PT HAS BEDSIDE COMMODE, CANE, POWER SCOOTER, SHOWER CHAIR AND WHEELCHAIR FROM THE CT. CM DISCUSSED ORDER FOR TRANSFER. PT STATES HE WOULD LIKE TO TRANSFER TO [place] IN [place] IF POSSIBLE. . CM CALLED VA EXPEDITOR, GEMMA, , PROVIDED REQUEST FOR VA TRANSFER, RENAL DIRECTOR DATA ANALYTICS AND MED 2 CONTACT INFORMATION . GEMMA INFORMED CM THAT THE RETREAD TECHNICIAN WOULD CONTACT THE HOSPITAL WHEN BED BECOMES AVAILABLE. CM WAITING BED TO BECOME AVAILABLE FOR VA TRANSFER, PT IS ON THE LIST. CM TO CONTINUE TO FOLLOW AND ASSIST NEEDED. Hyperbaric Welder Diver: Carroll Wick DCPIA - Discharge Planning Initial Assessment Updated by [id number]: Carroll Wick on 02/20/19 4:56 pm * Is the patient Alert and Oriented? Yes * How many steps to enter\exit or inside your home? RAMP * PCP [facility] * Pharmacy [facility] IN [place], [place]. * Preadmission Environment Home with Family * ADLs Partial Dependent * Partial ADLs (Assistance needed) Bathing Medication Management * Equipment Bedside Commode Cane Power Chair or Electric Scooter Shower Chair Wheelchair * Other Equipment [facility] - MEDICAL EQUIPMENT PROVIDER * List name and contact numbers for known caregivers / representatives who currently or will assist patient after discharge: BHAVIK VALDEZ, SPOUSE, LOU VALDEZ DTR, * Verbal permission to speak to the caregivers and representatives has been obtained from the patient. Yes * Community resources currently utilized [facility] * Please name any agencies selected above. PRIVATE DUTY PERSONAL CARE FROM [facility], 5 DAYS WEEKLY, 2 HOURS PER DAY * Additional services required to return to the preadmission environment? No * Can the patient safely return to the preadmission environment? Yes * Has this patient been hospitalized within the prior 30 days at any hospital? No External Providers External Provider: [facility] Next Contact Date: 02/25/2019 Service Request Date: Service Type: Resolution: Reviewer: Comments: Last DP export: 02/21/19 1:45 p Patient Name: GUANACO VALDEZ Page 68204 at 1356 All edits/amendments must be made on the electronic document DICTATION DATE: 02/25/19 135 VEHICLE INSURANCE AGENT: CARLITO 02/25/19 1355 RPT#: [id number] DC DATE: STATUS: ADM IN [facility] [address] [place] [address] END OF REPORT
--- NOTE | 2019-02-25 14:05 | MORECARE ---
CASE MANAGEMENT DISCHARGE SUMMARY PATIENT: GUANACO VALDEZ UNIT: [id number] ADM DATE: 02/20/19 AGE: 84 : 36 SEX: M ROOM/BED: D.2102 AUTHOR: MELANIA,DOC PHYSICIAN: REFERRING PHYSICIAN: DENNIS BARAJAS MD DATE OF SERVICE: 02/25/19 Discharge Plan Patient Name: GUANACO VALDEZ Facility: [facility]:[place] : 1935 Planned Disposition: Inpatient Rehab Anticipated Discharge Date: 02/26/19 Discharge Date: Expected LOS: 6 Initial Reviewer: [id number] Initial Review Date: 02/20/2019 Generated: 02/25/19 3:04 pm Comments DCP- Discharge Planning Updated by [id number]: Carroll Wick on 02/21/19 1:[address] Patient Name: GUANACO VALDEZ Encounter No: [id number] : 1935 Primary Insurance: MEDICARE PART A ONLY Anticipated DC Date: 02-21-2019 Planned Disposition: Acute Care Hospital External Planned Provider: [facility] DCP follow-up note: CM REVIEWED CHART, THERE IS NO TRANSFER BACK AGREEMENT IN THE CHART. PAGED AND SPOKE TO TIM PELLETIER REGARDING ORDER TO TRANSFER TO [place] OR BACK TO [facility]. CM EXPLAINED PROCESS OF TRANSFER, THAT PT IS ON THE [place] TRANSFER LIST WITH NO AVAILABLE BEDS; CM ASKED FOR REASON FOR TRANSFER REQUEST. AFTER WORKERS COMPENSATION ATTORNEY CHECKED WITH DR. BARAJAS, CM WAS ADVISED THAT THE DOCTOR ACCEPTED THE PT THINKING PT WAS A DIALYSIS PATIENT AND THAT THE SYMPTOMS THAT ARE BEING MANAGED COULD BE MANAGED AT [facility]. CM SPOKE TO PT IN ROOM WHO IS STILL WILLING FOR VA TRANSFER OR BACK TO [facility] STATING IT IS CLOSER TO [place] WHERE I LIVE. CM CALLED [facility] TRAVELING CONSTRUCTION SUPERINTENDENT, REQUESTED ADMINISTRATIVE APPROVAL. CARISSA PROVIDED APPROVAL FOR ADMIN SPLITTER TENDER DANIEL GARNER. CM CALLED [facility] EASY ADMIT LINE, , SPOKE TO JOSR AND PROVIDED TRANSFER REQUEST INFORMATION. CM RECEIVED CALL FROM JOSR OF [facility] EASY ADMIT LINE, WHO INFORMED CM THAT PT WAS TRANSFERRED FROM ER TO ER, THIS WILL NOT BE A TRANSFER BACK AND JOSR WILL CHECK TO SEE IF THE HOSPITALISTS AT [facility] WILL ACCEPT AND NOTIFY CM SHORTLY. CM WAITING ADMISSION DETERMINATION FROM [facility] AND BED AVAILABILITY AT [place] [facility] FOR TRANSFER. Carroll Wick, CASE MANAGEMENT DCP- Discharge Planning Updated by [id number]: Carroll Wick on 02/20/19 4:[address] Patient Name: GUANACO VALDEZ Admission Status: ER Accout number: [id number] Admission Date: 02-20-2019 : 1935 Admission Diagnosis: Attending: DENNIS BARAJAS Current LOS: 1 Anticipated DC Date: 02-20-2019 Planned Disposition: [place] facility Primary Insurance: MEDICARE PART A ONLY PLANNED EXTERNAL PROVIDER: [facility] Discharge Planning Comments: CM RECEIVED ORDER FOR TRANSFER TO [place] H[place] OR TRANSFER BACK TO [facility]. CM MET WITH PT IN ROOM TO DISCUSS DISCHARGE PLANNING AND NEEDS. PT REPORTS LIVING AT HOME DEPENDENTLY WITH SPOUSE. PT HAS PERSONAL CARE FROM [place] 5 DAYS PER WEEK, 2 HOURS PER DAY TO ASSIST WITH BATH, PT'S SPOUSE ASSISTS WITH MEDICATION MANAGEMENT. PT HAS BEDSIDE COMMODE, CANE, POWER SCOOTER, SHOWER CHAIR AND WHEELCHAIR FROM THE [place]. CM DISCUSSED ORDER FOR TRANSFER. PT STATES HE WOULD LIKE TO TRANSFER TO [place] IN [place] IF POSSIBLE. . CM CALLED VA EXPEDITOR, GEMMA, , PROVIDED REQUEST FOR VA TRANSFER, RENAL WORKERS COMPENSATION ATTORNEY AND MED 2 CONTACT INFORMATION . GEMMA INFORMED CM THAT THE PRE PRESS OPERATOR WOULD CONTACT THE HOSPITAL WHEN BED BECOMES AVAILABLE. CM WAITING BED TO BECOME AVAILABLE FOR VA TRANSFER, PT IS ON THE LIST. CM TO CONTINUE TO FOLLOW AND ASSIST NEEDED. Consulting Psychiatrist: Carroll Wick DCPIA - Discharge Planning Initial Assessment Updated by [id number]: Carroll Wick on 02/20/19 4:56 pm * Is the patient Alert and Oriented? Yes * How many steps to enter\exit or inside your home? RAMP * PCP [facility] * Pharmacy [place] [facility] IN [place], [place]. * Preadmission Environment Home with Family * ADLs Partial Dependent * Partial ADLs (Assistance needed) Bathing Medication Management * Equipment Bedside Commode Cane Power Chair or Electric Scooter Shower Chair Wheelchair * Other Equipment [facility] - MEDICAL EQUIPMENT PROVIDER * List name and contact numbers for known caregivers / representatives who currently or will assist patient after discharge: BHAVIK VALDEZ, SPOUSE, LOU VALDEZ DTR, * Verbal permission to speak to the caregivers and representatives has been obtained from the patient. Yes * Community resources currently utilized [facility] Services * Please name any agencies selected above. PRIVATE DUTY PERSONAL CARE FROM [facility], 5 DAYS WEEKLY, 2 HOURS PER DAY * Additional services required to return to the preadmission environment? No * Can the patient safely return to the preadmission environment? Yes * Has this patient been hospitalized within the prior 30 days at any hospital? No External Providers External Provider: [facility] Next Contact Date: 02/25/2019 Service Request Date: Service Type: Resolution: Reviewer: Comments: Last DP export: 02/25/19 12:55 p Patient Name: GUANACO VALDEZ Page 23710 at 1405 All edits/amendments must be made on the electronic document DICTATION DATE: 02/25/191403 FARM EQUIPMENT TECHNICIAN: CARLITO 02/25/19 1404 RPT#: [id number] DC DATE: STATUS: ADM IN [facility] [address] [place] [address] END OF REPORT
--- NOTE | 2019-02-25 14:19 | MORECARE ---
CASE MANAGEMENT DISCHARGE SUMMARY PATIENT: GUANACO VALDEZ UNIT: [id number] ADM DATE: 02/20/19 AGE: 84 : 36 SEX: M ROOM/BED: D.2102 AUTHOR: MELANIADOC PHYSICIAN: REFERRING PHYSICIAN: DENNIS BARAJAS MD DATE OF SERVICE: 02/25/19 Discharge Plan Patient Name: GUANACO VALDEZ Facility: [facility]:[place] : 1935 Planned Disposition: Inpatient Rehab Anticipated Discharge Date: 02/26/19 Discharge Date: Expected LOS: 6 Initial Reviewer: [id number] Initial Review Date: 02/20/2019 Generated: 02/25/19 3:18 pm Comments DCP- Discharge Planning Updated by [id number]: Carroll Wick on 02/25/19 1:[address] Patient Name: GUANACO VALDEZ Encounter No: [id number] : 1935 Primary Insurance: MEDICARE PART A ONLY Anticipated DC Date: 02-26-2019 Planned Disposition: Inpatient Rehab External Planned Provider: [facility] DCP follow-up note: CM SPOKE TO PT IN ROOM REGARDING DISCHARGE PLANNING. PT REPORTS HE IS READY TO GO TO REHAB AND WANTS REHAB AT [facility] AND PREFERS THEM OVER VA TRANSFER. PT REPORTS HAVING BEEN TO REHAB AT [facility] AND IT IS CLOSE TO HIS HOME. PT REPORTS FAMILY WILL CHANGE MANAGEMENT DIRECTOR WHEN ACCEPTED. PT IS NOT INTERESTED IN [facility] AND FEELS HE CAN PARTICIPATE FULLY IN THREE HOURS OF PROGRESSIVE THERAPY PER DAY WITH PLAN TO DISCHARGE HOME WITH FAMILY AFTER REHAB. IMPORTANT MESSAGE FROM MEDICARE PROVIDED AND EXPLAINED. CM CALLED LUIS F OF [facility], , PROVIDED REFERRAL INFORMATION. LUIS F IS GOING TO TRY TO GET CM AN ADMISSION DETERMINATION TODAY. CM FAXED INPATIENT REHAB REFERRAL TO [facility] AT [phone]. CM WAITING ADMISSION DETERMINATION FROM [facility]. CM CONTINUES [place]ITING [place] [facility]. Carroll Wick CASE MANAGEMENT DCP- Discharge Planning Updated by [id number]: Carroll Wick on 02/21/19 1:[address] Patient Name: GUANACO VALDEZ Encounter No: [id number] : 1935 Primary Insurance: MEDICARE PART A ONLY Anticipated DC Date: 02-21-2019 Planned Disposition: Acute Care Hospital External Planned Provider: [facility] DCP follow-up note: CM REVIEWED CHART, THERE IS NO TRANSFER BACK AGREEMENT IN THE CHART. PAGED AND SPOKE TO TIM PELLETIER REGARDING ORDER TO TRANSFER TO [place] OR BACK TO [facility]. CM EXPLAINED PROCESS OF TRANSFER, THAT PT [place] THE [place] TRANSFER LIST WITH NO AVAILABLE BEDS; CM ASKED FOR REASON FOR TRANSFER REQUEST. AFTER TIM CHECKED WITH DR. BARAJAS, CM WAS ADVISED THAT THE DOCTOR ACCEPTED THE PT THINKING PT WAS A DIALYSIS PATIENT AND THAT THE SYMPTOMS THAT ARE BEING MANAGED COULD BE MANAGED AT [facility]. CM SPOKE TO PT IN ROOM WHO IS STILL WILLING FOR [place] TRANSFER OR BACK TO [facility] STATING IT IS CLOSER TO [place] WHERE I LIVE. CM CALLED [facility], AIRPLANE COVERER, REQUESTED ADMINISTRATIVE APPROVAL. CARISSA PROVIDED APPROVAL FOR ADMIN SPEECH LANGUAGE PATHOLOGIST PRN DANIEL GARNER. CM CALLED [facility] EASY ADMIT LINE, , SPOKE TO JOSR AND PROVIDED TRANSFER REQUEST INFORMATION. CM RECEIVED CALL FROM JOSR OF [facility] EASY ADMIT LINE, WHO INFORMED CM THAT PT WAS TRANSFERRED FROM ER TO ER, THIS WILL NOT BE A TRANSFER BACK AND JOSR WILL CHECK TO SEE IF THE HOSPITALISTS AT [facility] WILL ACCEPT AND NOTIFY CM SHORTLY. CM WAITING ADMISSION DETERMINATION FROM [facility] AND BED AVAILABILITY AT [facility] FOR TRANSFER. Carroll Wick, CASE MANAGEMENT DCP- Discharge Planning Updated by [id number]: Carroll Wick on 02/20/19 4:[address] Patient Name: GUANACO VALDEZ Admission Status: ER Accout number: [id number] Admission Date: 02-20-2019 : 1935 Admission Diagnosis: Attending: DENNIS BARAJAS Current LOS: 1 Anticipated DC Date: 02-20-2019 Planned Disposition: [place] facility Primary Insurance: MEDICARE PART A ONLY PLANNED EXTERNAL PROVIDER: [facility] Discharge Planning Comments: CM RECEIVED ORDER FOR TRANSFER TO [place] OR TRANSFER BACK TO [facility]. CM MET WITH PT IN ROOM TO DISCUSS DISCHARGE PLANNING AND NEEDS. PT REPORTS LIVING AT HOME DEPENDENTLY WITH SPOUSE. PT HAS PERSONAL CARE FROM [facility] 5 DAYS PER WEEK, 2 HOURS PER DAY TO ASSIST WITH BATH, PT'S SPOUSE ASSISTS WITH MEDICATION MANAGEMENT. PT HAS BEDSIDE COMMODE, CANE, POWER SCOOTER, SHOWER CHAIR AND WHEELCHAIR FROM THE [facility]. CM DISCUSSED ORDER FOR TRANSFER. PT STATES HE WOULD LIKE TO TRANSFER TO [place] IN [place] IF POSSIBLE. . CM CALLED [place] EXPEDITOR, GEMMA, , PROVIDED REQUEST FOR VA TRANSFER, RENAL HOSPICE COMMUNITY LIAISON AND MED 2 CONTACT INFORMATION . GEMMA INFORMED CM THAT THE EMS DIRECTOR WOULD CONTACT THE HOSPITAL WHEN BED BECOMES AVAILABLE. CM WAITING BED TO BECOME AVAILABLE FOR VA TRANSFER, PT IS ON THE LIST. CM TO CONTINUE TO FOLLOW AND ASSIST NEEDED. Display Manager: Carroll Wick DCPIA - Discharge Planning Initial Assessment Updated by [id number]: Carroll Wick on 02/20/19 4:56 pm * Is the patient Alert and Oriented? Yes * How many steps to enter\exit or inside your home? RAMP * PCP [facility] * Pharmacy [place] [facility] IN [place], [place]. * Preadmission Environment Home with Family * ADLs Partial Dependent * Partial ADLs (Assistance needed) Bathing Medication Management * Equipment Bedside Commode Cane Power Chair or Electric Scooter Shower Chair Wheelchair * Other Equipment [facility] - MEDICAL EQUIPMENT PROVIDER * List name and contact numbers for known caregivers / representatives who currently or will assist patient after discharge: BHAVIK VALDEZ, SPOUSE, LOU VALDEZ, DTR, * Verbal permission to speak to the caregivers and representatives has been obtained from the patient. Yes * Community resources currently utilized [facility] [place] [facility] [place] [facility] * Please name any agencies selected above. PRIVATE DUTY PERSONAL CARE FROM [place], 5 DAYS WEEKLY, 2 HOURS PER DAY * Additional services required to return to the preadmission environment? No * Can the patient safely return to the preadmission environment? Yes * Has this patient been hospitalized within the prior 30 days at any hospital? No Coverage Notice Reviewer: [id number] - Carroll Wick Notice Issued Date-Time: 02/25/2019 13:50 Notice Type: IM Discharge Notice Notice Delivered To: Patient Relationship to Patient: [employer] Crewmember Name: Delivery Method: HAND - Hand Delivered Sarah Days: Prior Verbal Notification: Recipient Understood Notice: Yes Recipient Signature: Yes Med Rec Note Co-signed by Attending: Coverage Notice Comment: Last DP export: 02/25/19 1:04 p Patient Name: GUANACO VALDEZ Page 86801 at 1419 All edits/amendments must be made on the electronic document DICTATION DATE: 02/25/191417 DIAGRAMMER AND SEAMER: CARLITO 02/25/191417 RPT#: [id number] DC DATE: STATUS: ADM IN [facility] [address] [place] [address] END OF REPORT
--- NOTE | 2019-02-25 16:15 | NUR ---
FSBS 155 PROVIDED PT WITH 2 UNITS OF INSULIN PER SS. PT DENIES ANY CURRENT PAIN OR NEEDS AT THIS TIME. PT RESTING QUIETLY IN BED LYING FLAT. CL IN REACH, BED IN LOWEST, SIDE RAILS X2. WILL CTM.
--- NOTE | 2019-02-25 19:45 | NUR ---
ROUNDS COMPLETED, VSS, [id number]. NO S/S OF RR DISTRESS. RR EVEN AND UNLABORED. DAVIS INTACT, URINE CLEAR, YELLOW. PT STATES HEARTBURN FEEL A LOT BETTER. PT CURRENTLY RESTING IN BED. DRESSING TO LEFT HAND AND ELBOW C/D/I. PIV ACCESS PATENT. PT DENIES ANY FURTHER NEEDS AT THIS TIME. WILL CPOC. CL IN REACH, BED IN LOW, SR UP X2.
[2019-02-25 20:00] VITALS: BP 132/49
[2019-02-26] VITALS: BP 134/62
[2019-02-26 04:00] VITALS: BP 135/62
[2019-02-26 06:27] LABS: BASOPHILS 0.7 % (0-2); EOSINOPHILS 3.5 % (0-7); HEMATOCRIT 30.6 % (42.0-54.0); HEMOGLOBIN 9.9 g/dL (13.5-17.5); IMMATURE GRANULOCYTES 0.1 % (0-5); LYMPHOCYTES 20.2 % (15-50); MCH 28.3 pg (26.0-34.0); MCHC 32.4 g/dL (31.0-37.0); MCV 87.4 fL (80.0-100.0); MEAN PLATELET VOLUME 9.6 fL (7.4-10.4); MONOCYTES 14.7 % (2-11); NEUTROPHILS 60.8 % (40-80); PLATELET COUNT 155 10x3/uL (130-400); RDW 15.7 % (11.5-14.5); WBC 6.8 10x3/uL (4.8-10.8)
[2019-02-26 06:45] LABS: ANION GAP 9.1 mmol/L (8-16); CALCIUM 9.2 mg/dL (8.5-10.1); CARBON DIOXIDE 26.8 mmol/L (21.0-32.0); CREATININE - SERUM 1.7 mg/dL (0.6-1.3); POTASSIUM - SERUM 3.9 mmol/L (3.5-5.1)
[2019-02-26 07:47] VITALS: BP 113/65
--- NOTE | 2019-02-26 08:04 | MORECARE ---
CASE MANAGEMENT DISCHARGE SUMMARY PATIENT: GUANACO VALDEZ UNIT: [id number] ADM DATE: 02/20/19 AGE: 84 : 36 SEX: M ROOM/BED: D.2102 AUTHOR: MELANIADOC PHYSICIAN: REFERRING PHYSICIAN: DENNIS BARAJAS MD DATE OF SERVICE: 02/26/19 Discharge Plan Patient Name: GUANACO VALDEZ Facility: [facility]:[place] : 1935 Planned Disposition: Inpatient Rehab Anticipated Discharge Date: 02/26/19 Discharge Date: Expected LOS: 6 Initial Reviewer: [id number] Initial Review Date: 02/20/2019 Generated: 02/26/19 9:04 am Comments DCP- Discharge Planning Updated by [id number]: Carroll Wick on 02/25/19 1:[address] Patient Name: GUANACO VALDEZ Encounter No: [id number] : 1935 Primary Insurance: MEDICARE PART A ONLY Anticipated DC Date: 02-26-2019 Planned Disposition: Inpatient Rehab External Planned Provider: [facility] DCP follow-up note: CM SPOKE TO PT IN ROOM REGARDING DISCHARGE PLANNING. PT REPORTS HE IS READY TO GO TO REHAB AND WANTS REHAB AT [facility] AND PREFERS THEM OVER [place] TRANSFER. PT REPORTS HAVING BEEN TO REHAB AT [facility] AND IT IS CLOSE TO HIS HOME. PT REPORTS FAMILY WILL MILIEU MANAGER WHEN ACCEPTED. PT IS NOT INTERESTED IN PENITENTIARY REHAB AND FEELS HE CAN PARTICIPATE FULLY IN THREE HOURS OF PROGRESSIVE THERAPY PER DAY WITH PLAN TO DISCHARGE HOME WITH FAMILY AFTER REHAB. IMPORTANT MESSAGE FROM MEDICARE PROVIDED AND EXPLAINED. CM CALLED LUIS F OF [facility], , PROVIDED REFERRAL INFORMATION. LUIS F IS GOING TO TRY TO GET CM AN ADMISSION DETERMINATION TODAY. CM FAXED INPATIENT REHAB REFERRAL TO [facility] AT [phone]. CM WAITING ADMISSION DETERMINATION FROM [facility]. CM CONTINUES WAITING [place] [facility]. Carroll Wick CASE MANAGEMENT DCP- Discharge Planning Updated by [id number]: Carroll Wick on 02/21/19 1:[address] Patient Name: GUANACO VALDEZ Encounter No: [id number] : 1935 Primary Insurance: MEDICARE PART A ONLY Anticipated DC Date: 02-21-2019 Planned Disposition: Acute Care Hospital External Planned Provider: [facility] DCP follow-up note: CM REVIEWED CHART, THERE IS NO TRANSFER BACK AGREEMENT IN THE CHART. PAGED AND SPOKE TO TIM PELLETIER REGARDING ORDER TO TRANSFER TO [place] OR BACK TO [facility]. CM EXPLAINED PROCESS OF TRANSFER, THAT PT IS ON THE [place] TRANSFER LIST WITH NO AVAILABLE BEDS; CM ASKED FOR REASON FOR TRANSFER REQUEST. AFTER TIM CHECKED WITH DR. BARAJAS, CM WAS ADVISED THAT THE DOCTOR ACCEPTED THE PT THINKING PT WAS A DIALYSIS PATIENT AND THAT THE SYMPTOMS THAT ARE BEING MANAGED COULD BE MANAGED AT [facility]. CM SPOKE TO PT IN ROOM WHO IS STILL WILLING FOR [place] TRANSFER OR BACK TO [facility] STATING IT IS CLOSER TO [place] WHERE I LIVE. CM CALLED VEDA, HELPDESK ANALYST, REQUESTED ADMINISTRATIVE APPROVAL. CARISSA PROVIDED APPROVAL FOR ADMIN VETERINARY ATTENDANT DANIEL GARNER. CM CALLED [facility] ADMIT LINE, , SPOKE TO JOSR AND PROVIDED TRANSFER REQUEST INFORMATION. CM RECEIVED CALL FROM JOSR OF [facility], WHO INFORMED CM THAT PT WAS TRANSFERRED FROM ER TO ER, THIS WILL NOT BE A TRANSFER BACK AND JOSR WILL CHECK TO SEE IF THE HOSPITALISTS AT [facility] WILL ACCEPT AND NOTIFY CM SHORTLY. CM WAITING ADMISSION DETERMINATION FROM [facility] AND BED AVAILABILITY AT [facility] FOR TRANSFER. Carroll Wick, CASE MANAGEMENT DCP- Discharge Planning Updated by [id number]: Carroll Wick on 02/20/19 4:[address] Patient Name: GUANACO VALDEZ Admission Status: ER Accout number: [id number] Admission Date: 02-20-2019 : 1935 Admission Diagnosis: Attending: DENNIS BARAJAS Current LOS: 1 Anticipated DC Date: 02-20-2019 Planned Disposition: [place] facility Primary Insurance: MEDICARE PART A ONLY PLANNED EXTERNAL PROVIDER: [facility] Discharge Planning Comments: CM RECEIVED ORDER FOR TRANSFER TO [place] [facility] OR TRANSFER BACK TO [facility]. CM MET WITH PT IN ROOM TO DISCUSS DISCHARGE PLANNING AND NEEDS. PT REPORTS LIVING AT HOME DEPENDENTLY WITH SPOUSE. PT HAS PERSONAL CARE FROM [place] 5 DAYS PER WEEK, 2 HOURS PER DAY TO ASSIST WITH BATH, PT'S SPOUSE ASSISTS WITH MEDICATION MANAGEMENT. PT HAS BEDSIDE COMMODE, CANE, POWER SCOOTER, SHOWER CHAIR AND WHEELCHAIR FROM THE [facility]. CM DISCUSSED ORDER FOR TRANSFER. PT STATES HE WOULD LIKE TO TRANSFER TO [place] IN [place] IF POSSIBLE. . CM CALLED [place] EXPEDITOR, GEMMA, , PROVIDED REQUEST FOR [place] TRANSFER, RENAL POWER REGULATOR AND MED 2 CONTACT INFORMATION . GEMMA INFORMED CM THAT THE ACTIVITY THERAPY SPECIALIST WOULD CONTACT THE HOSPITAL WHEN BED BECOMES AVAILABLE. CM WAITING BED TO BECOME AVAILABLE FOR [place] TRANSFER, PT IS ON THE LIST. CM TO CONTINUE TO FOLLOW AND ASSIST NEEDED. Building Construction Estimator: Carroll Wick DCPIA - Discharge Planning Initial Assessment Updated by [id number]: Carroll Wick on 02/20/19 4:56 pm * Is the patient Alert and Oriented? Yes * How many steps to enter\exit or inside your home? RAMP * PCP [facility] * [place]acy [place] [facility] IN [place], [place]. * Preadmission Environment Home with Family * ADLs Partial Dependent * Partial ADLs (Assistance needed) Bathing Medication Management * Equipment Bedside Commode Cane Power Chair or Electric Scooter Shower Chair Wheelchair * Other Equipment [facility] - MEDICAL EQUIPMENT PROVIDER * List name and contact numbers for known caregivers / representatives who currently or will assist patient after discharge: BHAVIK VALDEZ, SPOUSE, LOU VALDEZ, DTR, * Verbal permission to speak to the caregivers and representatives has been obtained from the patient. Yes * Community resources currently utilized Private Duty Care [place] Services * Please name any agencies selected above. PRIVATE DUTY PERSONAL CARE FROM [place], 5 DAYS WEEKLY, 2 HOURS PER DAY * Additional services required to return to the preadmission environment? No * Can the patient safely return to the preadmission environment? Yes * Has this patient been hospitalized within the prior 30 days at any hospital? No External Providers External Provider: [facility] Next Contact Date: 02/25/2019 Service Request Date: Service Type: Resolution: Reviewer: Comments: Coverage Notice Reviewer: [id number] - Carroll Wick Notice Issued Date-Time: 02/25/2019 13:50 Notice Type: IM Discharge Notice Notice Delivered To: Patient Relationship to Patient: Speech Language Therapist Name: Delivery Method: HAND - Hand Delivered Sarah Days: Prior Verbal Notification: Recipient Understood Notice: Yes Recipient Signature: Yes Med Rec Note Co-signed by Attending: Coverage Notice Comment: Last DP export: 02/25/19 1:19 p Patient Name: GUANACO VALDEZ Page 62162 at 0804 All edits/amendments must be made on the electronic document DICTATION DATE: 02/26/19802 MUSSEL OPENER: CARLITO 02/26/19802 RPT#: [id number] DC DATE: STATUS: ADM IN [facility] [address] [place] [address] END OF REPORT
--- NOTE | 2019-02-26 08:16 | MORECARE ---
CASE MANAGEMENT DISCHARGE SUMMARY PATIENT: GUANACO VALDEZ UNIT: [id number] ADM DATE: 02/20/19 AGE: 84 : 36 SEX: M ROOM/BED: D.2102 AUTHOR: GEO VELÁZQUEZ PHYSICIAN: REFERRING PHYSICIAN: DENNIS BARAJAS MD DATE OF SERVICE: 02/26/19 Discharge Plan Patient Name: GUANACO VALDEZ Facility: [facility]:[place] : 1935 Planned Disposition: Inpatient Rehab Anticipated Discharge Date: 02/26/19 Discharge Date: Expected LOS: 6 Initial Reviewer: [id number] Initial Review Date: 02/20/2019 Generated: 02/26/19 9:16 am Comments DCP- Discharge Planning Updated by [id number]: Carroll Wick on 02/26/19 7:[address] Patient Name: GUANACO VALDEZ Encounter No: [id number] : 1935 Primary Insurance: MEDICARE PART A ONLY Anticipated DC Date: 02-26-2019 Planned Disposition: Inpatient Rehab External Planned Provider:[facility] DCP follow-up note: CM RECEIVED CALL FROM LUIS F OF [facility], ,SHE DID NOT RECEIVE EITHER FAX YESTERDAY. CM REVIEWED AND FOUND BOTH FAX CONFIRMATIONS THAT INDICATED FAXES WENT THROUGH [place]. ALEXANDRAAPROVIDED "HARD FAX" LINE AND IS GOING TO GET CM AN ADMISSION DETERMINATION TODAY. CM FAXED INPATIENT REHAB REFERRAL TO [facility] AT [phone] AND HARD FAX LINE, . CM WAITING ADMISSION DETERMINATION FROM [facility]. CM CONTINUES WAITING [place] MEDICAL BED TO TRANSFER TO [facility]. Carroll Wick, CASE MANAGEMENT DCP- Discharge Planning Updated by [id number]: Carroll Wick on 02/25/19 1:[address] Patient Name: GUANACO VALDEZ Encounter No: [id number] : 1935 Primary Insurance: MEDICARE PART A ONLY Anticipated DC Date: 02-26-2019 Planned Disposition: Inpatient Rehab External [facility] DCP follow-up note: CM SPOKE TO PT IN ROOM REGARDING DISCHARGE PLANNING. PT REPORTS HE IS READY TO GO TO REHAB AND WANTS REHAB AT [facility] AND PREFERS THEM OVER [facility] TRANSFER. PT REPORTS HAVING BEEN TO REHAB AT [facility] AND IT IS CLOSE TO HIS HOME. PT REPORTS FAMILY WILL PETROLEUM PLANT OPERATOR WHEN ACCEPTED. PT IS NOT INTERESTED IN LONG TERM REHAB AND FEELS HE CAN PARTICIPATE FULLY IN THREE HOURS OF PROGRESSIVE THERAPY PER DAY WITH PLAN TO DISCHARGE HOME WITH FAMILY AFTER REHAB. IMPORTANT MESSAGE FROM MEDICARE PROVIDED AND EXPLAINED. CM CALLED LUIS F OF [facility], , PROVIDED REFERRAL INFORMATION. LUIS F IS GOING TO TRY TO GET CM AN ADMISSION DETERMINATION TODAY. CM FAXED INPATIENT REHAB REFERRAL TO [facility] AT [phone]. CM WAITING ADMISSION DETERMINATION FROM [facility]. CM CONTINUES WAITING [place] MEDICAL BED TO TRANSFER TO [place] HOSPITAL. Carroll Wick, CASE MANAGEMENT DCP- Discharge Planning Updated by [id number]: Carroll Wick on 02/21/19 1:[address] Patient Name: GUANACO VALDEZ Encounter No: [id number] : 1935 Primary Insurance: MEDICARE PART A ONLY Anticipated DC Date: 02-21-2019 Planned Disposition: Acute Care Hospital External Planned Provider: [facility] DCP follow-up note: CM REVIEWED CHART, THERE IS NO TRANSFER BACK AGREEMENT IN THE CHART. PAGED AND SPOKE TO TIM PELLETIER REGARDING ORDER TO TRANSFER TO [place] OR BACK TO [facility]. CM EXPLAINED PROCESS OF TRANSFER, THAT PT IS ON THE [place] TRANSFER LIST WITH NO AVAILABLE BEDS; CM ASKED FOR REASON FOR TRANSFER REQUEST. AFTER AUTOMOBILE CLUB INFORMATION CLERK CHECKED WITH DR. BARAJAS, KASIA WAS ADVISED THAT THE DOCTOR ACCEPTED THE PT THINKING PT WAS A DIALYSIS PATIENT AND THAT THE SYMPTOMS THAT ARE BEING MANAGED COULD BE MANAGED AT [facility]. CM SPOKE TO PT IN ROOM WHO IS STILL WILLING FOR [place] TRANSFER OR BACK TO [facility] STATING IT IS CLOSER TO [place] WHERE I LIVE. CM CALLED [employer]A, CHICLE GRINDER FEEDER, REQUESTED ADMINISTRATIVE APPROVAL. CARISSA PROVIDED APPROVAL FOR ADMIN REGISTRATION CLERK DANIEL GARNER. CM CALLED [facility] ADMIT [facility], , SPOKE TO JOSR AND PROVIDED TRANSFER REQUEST INFORMATION. CM RECEIVED CALL FROM JOSR OF [facility] ADMIT LINE, WHO INFORMED CM THAT PT WAS TRANSFERRED FROM ER TO ER, THIS WILL NOT BE A TRANSFER BACK AND JOSR WILL CHECK TO SEE IF THE HOSPITALISTS AT [facility] WILL ACCEPT AND NOTIFY CM SHORTLY. CM WAITING ADMISSION DETERMINATION FROM [facility] AND BED AVAILABILITY AT [facility] FOR TRANSFER. Carroll Wick, CASE MANAGEMENT DCP- Discharge Planning Updated by [id number]: Carroll Wick on 02/20/19 4:[address] Patient Name: GUANACO VALDEZ Admission Status: ER Accout number: [id number] Admission Date: 02-20-2019 : 1935 Admission Diagnosis: Attending: DENNIS BARAJAS Current LOS: 1 Anticipated DC Date: 02-20-2019 Planned Disposition: [place] facility Primary Insurance: MEDICARE PART A ONLY PLANNED EXTERNAL PROVIDER: [facility] Discharge Planning Comments: CM RECEIVED ORDER FOR TRANSFER TO [place] HOSPITAL OR TRANSFER BACK TO [facility]. CM MET WITH PT IN ROOM TO DISCUSS DISCHARGE PLANNING AND NEEDS. PT REPORTS LIVING AT HOME DEPENDENTLY WITH SPOUSE. PT HAS PERSONAL CARE FROM [place] 5 DAYS PER WEEK, 2 HOURS PER DAY TO ASSIST WITH BATH, PT'S SPOUSE ASSISTS WITH MEDICATION MANAGEMENT. PT HAS BEDSIDE COMMODE, CANE, POWER SCOOTER, SHOWER CHAIR AND WHEELCHAIR FROM THE NH. CM DISCUSSED ORDER FOR TRANSFER. PT STATES HE WOULD LIKE TO TRANSFER TO [place] IN [place] IF POSSIBLE. . CM CALLED [place] EXPEDITOR, GEMMA, , PROVIDED REQUEST FOR [place] TRANSFER, RENAL AUTOMOBILE CLUB INFORMATION CLERK AND MED 2 CONTACT INFORMATION . GEMMA INFORMED CM THAT THE TISSUE SPECIALIST WOULD CONTACT THE HOSPITAL WHEN BED BECOMES AVAILABLE. CM WAITING BED TO BECOME AVAILABLE FOR VA TRANSFER, PT IS ON THE LIST. CM TO CONTINUE TO FOLLOW AND ASSIST NEEDED. Electronic Prepress Technician: Carroll Wick DCPIA - Discharge Planning Initial Assessment Updated by [id number]: Carroll Wick on 02/20/19 4:56 pm * Is the patient Alert and Oriented? Yes * How many steps to enter\\exit or inside your home? RAMP * PCP [facility] * [place]acy [place] [facility] IN [place], [place]. * Preadmission Environment Home with Family * ADLs Partial Dependent * Partial ADLs (Assistance needed) Bathing Medication Management * Equipment Bedside Commode Cane Power Chair or Electric Scooter Shower Chair Wheelchair * Other Equipment [facility] - MEDICAL EQUIPMENT PROVIDER * List name and contact numbers for known caregivers / representatives who currently or will assist patient after discharge: BHAVIK VALDEZ, SPOUSE, LOU VALDEZ DTR, * Verbal permission to speak to the caregivers and representatives has been obtained from the patient. Yes * Community resources currently utilized Private Duty Care [place] Services * Please name any agencies selected above. PRIVATE DUTY PERSONAL CARE FROM [place], 5 DAYS WEEKLY, 2 HOURS PER DAY * Additional services required to return to the preadmission environment? No * Can the patient safely return to the preadmission environment? Yes * Has this patient been hospitalized within the prior 30 days at any hospital? No Coverage Notice Reviewer: [id number] Jaz Wick Notice Issued Date-Time: 02/25/2019 13:50 Notice Type: IM Discharge Notice Notice Delivered To: Patient Relationship to Patient: Clinical Social Work Therapist Name: Delivery Method: HAND - Hand Delivered Sarah Days: Prior Verbal Notification: Recipient Understood Notice: Yes Recipient Signature: Yes Med Rec Note Co-signed by Attending: Coverage Notice Comment: Last DP export: 02/26/19 7:04 a Patient Name: GUANACO VALDEZ Page 37913 at 0816 All edits/amendments must be made on the electronic document DICTATION DATE: 02/26/19815 VETERINARY TECHNOLOGIST: CARLITO 02/26/19815 RPT#: [id number] DC DATE: STATUS: ADM IN [facility] [address] [place] [address] END OF REPORT
[2019-02-26 12:18] VITALS: BP 145/57
--- NOTE | 2019-02-26 13:19 | MORECARE ---
CASE MANAGEMENT DISCHARGE SUMMARY PATIENT: GUANACO VALDEZ UNIT: [id number] ADM DATE: 02/20/19 AGE: 84 : 36 SEX: M ROOM/BED: D.2102 AUTHOR: GEO VELÁZQUEZ PHYSICIAN: REFERRING PHYSICIAN: DENNIS BARAJAS MD DATE OF SERVICE: 02/26/19 Discharge Plan Patient Name: GUANACO VALDEZ Facility: [facility]:[place] : 1935 Planned Disposition: Inpatient Rehab Anticipated Discharge Date: 02/26/19 Discharge Date: Expected LOS: 6 Initial Reviewer: [id number] Initial Review Date: 02/20/2019 Generated: 02/26/19 2:19 pm Comments DCP- Discharge Planning Updated by [id number]: Carroll Wick on 02/26/19 7:[address] Patient Name: GUANACO VALDEZ Encounter No: [id number] : 1935 Primary Insurance: MEDICARE PART A ONLY Anticipated DC Date: 02-26-2019 Planned Disposition: Inpatient Rehab External Planned Provider:[facility] DCP follow-up note: CM RECEIVED CALL FROM LUIS F OF [facility], ,SHE DID NOT RECEIVE EITHER FAX YESTERDAY. CM REVIEWED AND FOUND BOTH FAX CONFIRMATIONS THAT INDICATED FAXES WENT THROUGH [place]. ALEXANDRAAPROVIDED "HARD FAX" LINE AND IS GOING TO GET CM AN ADMISSION DETERMINATION TODAY. CM FAXED INPATIENT REHAB REFERRAL TO [facility] AT [phone] AND HARD FAX LINE, . CM WAITING ADMISSION DETERMINATION FROM [facility]. CM CONTINUES WAITING [place] MEDICAL BED TO TRANSFER TO [facility]. Carroll Wick, CASE MANAGEMENT DCP- Discharge Planning Updated by [id number]: Carroll Wick on 02/25/19 1:[address] Patient Name: GUANACO VALDEZ Encounter No: [id number] : 1935 Primary Insurance: MEDICARE PART A ONLY Anticipated DC Date: 02-26-2019 Planned Disposition: Inpatient Rehab External [facility] DCP follow-up note: CM SPOKE TO PT IN ROOM REGARDING DISCHARGE PLANNING. PT REPORTS HE IS READY TO GO TO REHAB AND WANTS REHAB AT [facility] AND PREFERS THEM OVER [place] TRANSFER. PT REPORTS HAVING BEEN TO REHAB AT [facility] AND IT IS CLOSE TO HIS HOME. PT REPORTS FAMILY WILL AMMONIUM SULFATE OPERATOR WHEN ACCEPTED. PT IS NOT INTERESTED IN SENIOR LIVING REHAB AND FEELS HE CAN PARTICIPATE FULLY IN THREE HOURS OF PROGRESSIVE THERAPY PER DAY WITH PLAN TO DISCHARGE HOME WITH FAMILY AFTER REHAB. IMPORTANT MESSAGE FROM MEDICARE PROVIDED AND EXPLAINED. CM CALLED LUIS F OF [facility], , PROVIDED REFERRAL INFORMATION. LUIS F IS GOING TO TRY TO GET CM AN ADMISSION DETERMINATION TODAY. CM FAXED INPATIENT REHAB REFERRAL TO [facility] AT [phone]. CM WAITING ADMISSION DETERMINATION FROM [facility]. CM CONTINUES WAITING [place] MEDICAL BED [place]SFER [place] H[place]. Carroll Wick, CASE MANAGEMENT DCP- Discharge Planning Updated by [id number]: Carroll Wick on 02/21/19 1:[address] Patient Name: GUANACO VALDEZ Encounter No: [id number] : 1935 Primary Insurance: MEDICARE PART A ONLY Anticipated DC Date: 02-21-2019 Planned Disposition: Acute Care Hospital External Planned Provider: [facility] DCP follow-up note: CM REVIEWED CHART, THERE IS NO TRANSFER BACK AGREEMENT IN THE CHART. PAGED AND SPOKE TO TIM PELLETIER REGARDING ORDER TO TRANSFER TO [place] OR BACK TO [facility]. CM EXPLAINED PROCESS OF TRANSFER, THAT PT IS ON THE [place] TRANSFER LIST WITH NO AVAILABLE BEDS; CM ASKED FOR REASON FOR TRANSFER REQUEST. AFTER RETAIL EQUIPMENT ASSOCIATE CHECKED WITH DR. BARAJAS, KASIA WAS ADVISED THAT THE DOCTOR ACCEPTED THE PT THINKING PT WAS A DIALYSIS PATIENT AND THAT THE SYMPTOMS THAT ARE BEING MANAGED COULD BE MANAGED AT [facility]. CM SPOKE TO PT IN ROOM WHO IS STILL WILLING FOR [place] TRANSFER OR BACK TO [facility] STATING IT IS CLOSER TO [place] WHERE I LIVE. CM CALLED VEDA, SENIOR PHARMACY TECHNICIAN, REQUESTED ADMINISTRATIVE APPROVAL. CARISSA PROVIDED APPROVAL FOR ADMIN WIND TUNNEL TECHNICIAN DANIEL GARNER. CM CALLED [facility] ADMIT [facility], , SPOKE TO JOSR AND PROVIDED TRANSFER REQUEST INFORMATION. CM RECEIVED CALL FROM JOSR OF [facility] ADMIT LINE, WHO INFORMED CM THAT PT WAS TRANSFERRED FROM ER TO ER, THIS WILL NOT BE A TRANSFER BACK AND JOSR WILL CHECK TO SEE IF THE HOSPITALISTS AT [facility] WILL ACCEPT AND NOTIFY CM SHORTLY. CM WAITING ADMISSION DETERMINATION FROM [facility] AND BED AVAILABILITY AT [facility] FOR TRANSFER. Carroll Wick, CASE MANAGEMENT DCP- Discharge Planning Updated by [id number]: Carroll Wick on 02/20/19 4:[address] Patient Name: GUANACO VALDEZ Admission Status: ER Accout number: [id number] Admission Date: 02-20-2019 : 1935 Admission Diagnosis: Attending: DENNIS BARAJAS Current LOS: 1 Anticipated DC Date: 02-20-2019 Planned Disposition: [place] facility Primary Insurance: MEDICARE PART A ONLY PLANNED EXTERNAL PROVIDER: [facility] Discharge Planning Comments: CM RECEIVED ORDER FOR [place]SFER TO [place] H[place] OR TRANSFER BACK TO [facility]. CM MET WITH PT IN ROOM TO DISCUSS DISCHARGE PLANNING AND NEEDS. PT REPORTS LIVING AT HOME DEPENDENTLY WITH SPOUSE. PT [place] PERSONAL CARE FROM [place] 5 DAYS PER WEEK, 2 HOURS PER DAY TO ASSIST WITH BATH, PT'S SPOUSE ASSISTS WITH MEDICATION MANAGEMENT. PT HAS BEDSIDE COMMODE, CANE, POWER SCOOTER, SHOWER CHAIR AND WHEELCHAIR FROM THE [place]. CM DISCUSSED ORDER FOR TRANSFER. PT STATES HE WOULD LIKE TO TRANSFER TO [place] IN [place] IF POSSIBLE. . CM CALLED [place] EXPEDITOR, GEMMA, , PROVIDED REQUEST FOR [place] TRANSFER, RENAL RETAIL EQUIPMENT ASSOCIATE AND MED 2 CONTACT INFORMATION . GEMMA INFORMED CM THAT THE PROCUREMENT SERVICES MANAGER WOULD CONTACT THE HOSPITAL WHEN BED BECOMES AVAILABLE. CM WAITING BED TO BECOME AVAILABLE FOR [place] TRANSFER, PT IS ON THE LIST. CM TO CONTINUE TO FOLLOW AND ASSIST NEEDED. Agricultural Economics Teacher: Carroll Wick DCPIA - Discharge Planning Initial Assessment Updated by [id number]: Carroll Wick on 02/20/19 4:56 pm * Is the patient Alert and Oriented? Yes * How many steps to enter\\exit or inside your home? RAMP * PCP [facility] * [place]acy [place] [facility] IN [place], [place]. * Preadmission Environment Home with Family * ADLs Partial Dependent * Partial ADLs (Assistance needed) Bathing Medication Management * Equipment Bedside Commode Cane Power Chair or Electric Scooter Shower Chair Wheelchair * Other Equipment [facility] - MEDICAL EQUIPMENT PROVIDER * List name and contact numbers for known caregivers / representatives who currently or will assist patient after discharge: BHAVIK VALDEZ, SPOUSE, LOU VALDEZ DTR, * Verbal permission to speak to the caregivers and representatives has been obtained from the patient. Yes * Community resources currently utilized [facility] [place] [facility] [place] Services * Please name any agencies selected above. [place]IVATE [place]Y [place], 5 DAYS WEEKLY, 2 HOURS PER DAY * Additional services required to return to the preadmission environment? No * Can the patient safely return to the preadmission environment? Yes * Has this patient been hospitalized within the prior 30 days at any hospital? No External Providers External Provider: OTHER-OTHER Next Contact Date: 02/26/2019 Service Request Date: Service Type: Resolution: Reviewer: Comments: Coverage Notice Reviewer: [id number] - Carroll Wick Notice Issued Date-Time: 02/25/2019 13:50 Notice Type: IM Discharge Notice Notice Delivered To: Patient Relationship to Patient: Colorectal Surgeon Name: Delivery Method: HAND - Hand Delivered Sarah Days: Prior Verbal Notification: Recipient Understood Notice: Yes Recipient Signature: Yes Med Rec Note Co-signed by Attending: Coverage Notice Comment: Last DP export: 02/26/19 7:16 a Patient Name: GUANACO VALDEZ Page 16256 at 1319 All edits/amendments must be made on the electronic document DICTATION DATE: 02/26/19 1319 MARKING MACHINE TENDER: CARLITO 02/26/19 1319 RPT#: [id number] DC DATE: STATUS: ADM IN [facility] [address] [place] [address] END OF REPORT
--- NOTE | 2019-02-26 13:35 | MORECARE ---
CASE MANAGEMENT DISCHARGE SUMMARY PATIENT: GUANACO VALDEZ UNIT: [id number] ADM DATE: 02/20/19 AGE: 84 : 36 SEX: M ROOM/BED: D.2102 AUTHOR: GEO VELÁZQUEZ PHYSICIAN: REFERRING PHYSICIAN: DENNIS BARAJAS MD DATE OF SERVICE: 02/26/19 Discharge Plan Patient Name: GUANACO VALDEZ Facility: [facility]:[place] : 1935 Planned Disposition: Inpatient Rehab Anticipated Discharge Date: 02/26/19 Discharge Date: Expected LOS: 6 Initial Reviewer: [id number] Initial Review Date: 02/20/2019 Generated: 02/26/19 2:35 pm Comments DCP- Discharge Planning Updated by [id number]: Carroll Wick on 02/26/19 7:[address] Patient Name: GUANACO VALDEZ Encounter No: [id number] : 1935 Primary Insurance: MEDICARE PART A ONLY Anticipated DC Date: 02-26-2019 Planned Disposition: Inpatient Rehab External Planned Provider:[facility] DCP follow-up note: CM RECEIVED CALL FROM LUIS F OF [facility], ,SHE DID NOT RECEIVE EITHER FAX YESTERDAY. CM REVIEWED AND FOUND BOTH FAX CONFIRMATIONS THAT INDICATED FAXES WENT THROUGH [place]. ALEXANDRAAPROVIDED "HARD FAX" LINE AND IS GOING TO GET CM AN ADMISSION DETERMINATION TODAY. CM FAXED INPATIENT REHAB REFERRAL TO [facility] AT [phone] AND HARD FAX LINE, . CM WAITING ADMISSION DETERMINATION FROM [facility]. CM CONTINUES WAITING [place] MEDICAL BED TO TRANSFER TO [facility]. Carroll Wick, CASE MANAGEMENT DCP- Discharge Planning Updated by [id number]: Carroll Wick on 02/25/19 1:[address] Patient Name: GUANACO VLADEZ Encounter No: [id number] : 1935 Primary Insurance: MEDICARE PART A ONLY Anticipated DC Date: 02-26-2019 Planned Disposition: Inpatient Rehab [facility] DCP follow-up note: CM SPOKE TO PT IN ROOM REGARDING DISCHARGE PLANNING. PT REPORTS HE IS READY TO GO TO REHAB AND WANTS REHAB AT [facility] AND PREFERS THEM OVER [facility] TRANSFER. PT REPORTS HAVING BEEN TO REHAB AT [facility] AND IT IS CLOSE TO HIS HOME. PT REPORTS FAMILY WILL J2EE JAVA DEVELOPER WHEN ACCEPTED. PT IS NOT INTERESTED IN SHELTER REHAB AND FEELS HE CAN PARTICIPATE FULLY IN THREE HOURS OF PROGRESSIVE THERAPY PER DAY WITH PLAN TO DISCHARGE HOME WITH FAMILY AFTER REHAB. IMPORTANT MESSAGE FROM MEDICARE PROVIDED AND EXPLAINED. CM CALLED LUIS F OF [facility], , PROVIDED REFERRAL INFORMATION. LUIS F IS GOING TO TRY TO GET CM AN ADMISSION DETERMINATION TODAY. CM FAXED INPATIENT REHAB REFERRAL TO [facility] AT [phone]. CM WAITING ADMISSION DETERMINATION FROM [facility]. CM CONTINUES WAITING [facility]. Carroll Wick, CASE MANAGEMENT DCP- Discharge Planning Updated by [id number]: Carroll Wick on 02/21/19 1:[address] Patient Name: GUANACO VALDEZ Encounter No: [id number] : 1935 Primary Insurance: MEDICARE PART A ONLY Anticipated DC Date: 02-21-2019 Planned Disposition: Acute Care Hospital External Planned Provider: [facility] DCP follow-up note: CM REVIEWED CHART, THERE IS NO TRANSFER BACK AGREEMENT IN THE CHART. PAGED AND SPOKE TO TIM PELLETIER REGARDING ORDER TO TRANSFER TO [facility] OR BACK TO [facility]. CM EXPLAINED PROCESS OF TRANSFER, THAT PT IS ON THE [facility] TRANSFER LIST WITH NO AVAILABLE BEDS; CM ASKED FOR REASON FOR TRANSFER REQUEST. AFTER SYS DIR CHECKED WITH DR. BARAJAS, KASIA WAS ADVISED THAT THE DOCTOR ACCEPTED THE PT THINKING PT WAS A DIALYSIS PATIENT AND THAT THE SYMPTOMS THAT ARE BEING MANAGED COULD BE MANAGED AT [facility]. CM SPOKE TO PT IN ROOM WHO IS STILL WILLING FOR VA TRANSFER OR BACK TO [facility] STATING IT IS CLOSER TO [place] WHERE I LIVE. CM CALLED [employer], SHIPPING ROOM HELPER, REQUESTED ADMINISTRATIVE APPROVAL. CARISSA PROVIDED APPROVAL FOR ADMIN SWITCHBOARD INSTALLER DANIEL GARNER. CM CALLED [facility], , SPOKE TO JOSR AND PROVIDED TRANSFER REQUEST INFORMATION. CM RECEIVED CALL FROM JOSR OF [facility], WHO INFORMED CM THAT PT WAS TRANSFERRED FROM ER TO ER, THIS WILL NOT BE A TRANSFER BACK AND JOSR WILL CHECK TO SEE IF THE HOSPITALISTS AT [facility] WILL ACCEPT AND NOTIFY CM SHORTLY. CM WAITING ADMISSION DETERMINATION FROM [facility] AND BED AVAILABILITY AT [facility] FOR TRANSFER. Carroll Wick, CASE MANAGEMENT DCP- Discharge Planning Updated by [id number]: Carroll Wick on 02/20/19 4:[address] Patient Name: GUANACO VALDEZ Admission Status: ER Accout number: [id number] Admission Date: 02-20-2019 : 1935 Admission Diagnosis: Attending: DENNIS BARAJAS Current LOS: 1 Anticipated DC Date: 02-20-2019 Planned Disposition: [facility] facility Primary Insurance: MEDICARE PART A ONLY PLANNED EXTERNAL PROVIDER: [facility] Discharge Planning Comments: CM RECEIVED ORDER FOR TRANSFER TO [facility] OR TRANSFER BACK TO [facility]. CM MET WITH PT IN ROOM TO DISCUSS DISCHARGE PLANNING AND NEEDS. PT REPORTS LIVING AT HOME DEPENDENTLY WITH SPOUSE. PT HAS PERSONAL CARE FROM [facility] 5 DAYS PER WEEK, 2 HOURS PER DAY TO ASSIST WITH BATH, PT'S SPOUSE ASSISTS WITH MEDICATION MANAGEMENT. PT HAS BEDSIDE COMMODE, CANE, POWER SCOOTER, SHOWER CHAIR AND WHEELCHAIR FROM THE [facility]. CM DISCUSSED ORDER FOR TRANSFER. PT STATES HE WOULD LIKE TO TRANSFER TO [facility] IN [place] IF POSSIBLE. . CM CALLED [facility] EXPEDITOR, GEMMA, , PROVIDED REQUEST FOR VA TRANSFER, RENAL SYS DIR AND MED 2 CONTACT INFORMATION . GEMMA INFORMED CM THAT THE WALL TAPER HELPER WOULD CONTACT THE HOSPITAL WHEN BED BECOMES AVAILABLE. CM WAITING BED TO BECOME AVAILABLE FOR VA TRANSFER, PT IS ON THE LIST. CM TO CONTINUE TO FOLLOW AND ASSIST NEEDED. Roller Print Tender: Carroll Wick DCPIA - Discharge Planning Initial Assessment Updated by [id number]: Carroll Wick on 02/20/19 4:56 pm * Is the patient Alert and Oriented? Yes * How many steps to enter\\exit or inside your home? RAMP * PCP [facility] * Pharmacy [facility] IN [place], [place]. * Preadmission Environment Home with Family * ADLs Partial Dependent * Partial ADLs (Assistance needed) Bathing Medication Management * Equipment Bedside Commode Cane Power Chair or Electric Scooter Shower Chair Wheelchair * Other Equipment [facility] - MEDICAL EQUIPMENT PROVIDER * List name and contact numbers for known caregivers / representatives who currently or will assist patient after discharge: BHAVIK VALDEZ, SPOUSE, LOU VALDEZ DTR, * Verbal permission to speak to the caregivers and representatives has been obtained from the patient. Yes * Community resources currently utilized [facility] Care [facility] Services * Please name any agencies selected above. PRIVATE DUTY PERSONAL CARE FROM [facility], 5 DAYS WEEKLY, 2 HOURS PER DAY * Additional services required to return to the preadmission environment? No * Can the patient safely return to the preadmission environment? Yes * Has this patient been hospitalized within the prior 30 days at any hospital? No External Providers External Provider: [facility] Next Contact Date: 02/26/2019 Service Request Date: Service Type: Resolution: Reviewer: Comments: Coverage Notice Reviewer: [id number] - Carroll Wick Notice Issued Date-Time: 02/25/2019 13:50 Notice Type: IM Discharge Notice Notice Delivered To: Patient Relationship to Patient: School Treasurer Name: Delivery Method: HAND - Hand Delivered Sarah Days: Prior Verbal Notification: Recipient Understood Notice: Yes Recipient Signature: Yes Med Rec Note Co-signed by Attending: Coverage Notice Comment: Last DP export: 02/26/19 12:19 p Patient Name: GUANACO VALDEZ Page [id number] at 1335 All edits/amendments must be made on the electronic document DICTATION DATE: 02/26/19 1335 DISEASE MANAGEMENT NURSE: CARLITO 02/26/19 1335 RPT#: [id number] DC DATE: STATUS: ADM IN [facility] [address] [place] [address] END OF REPORT
--- NOTE | 2019-02-26 13:56 | MORECARE ---
CASE MANAGEMENT DISCHARGE SUMMARY PATIENT: GUANACO VALDEZ UNIT: [id number] ADM DATE: 02/20/19 AGE: 84 : 36 SEX: M ROOM/BED: D.2102 AUTHOR: MELANIA,DOC PHYSICIAN: REFERRING PHYSICIAN: DENNIS BARAJAS MD DATE OF SERVICE: 02/26/19 Discharge Plan Patient Name: GUANACO VALDEZ Facility: [facility]:[place] : 1935 Planned Disposition: Inpatient Rehab Anticipated Discharge Date: 02/26/19 Discharge Date: Expected LOS: 6 Initial Reviewer: [id number] Initial Review Date: 02/20/2019 Generated: 02/26/19 2:56 pm Comments DCP- Discharge Planning Updated by [id number]: Ishmael Martínez on 02/26/19 12:[address] Patient Name: GUANACO VALDEZ Encounter No: [id number] : 1935 Primary Insurance: MEDICARE PART A ONLY Anticipated DC Date: 02-26-2019 Planned Disposition: Inpatient Rehab External Planned Provider: [facility] OR [facility] AT [facility] DCP follow-up note: CM SPOKE TO LUIS F OF [facility], PT IS NOT MEETING CRITERIA FOR ADMISSION, RECOMMENDS [facility] SERVICES. CM MET WITH PT IN ROOM, DISCUSSED ABOVE AND REHAB OPTIONS. PT AGREEABLE TO REHAB AT [facility] IF THEY WILL TAKE HIM OR [facility] CLOSER TO HOME. PT ASKED CM TO CALL HIS FOR DISCHARGE PLANNING. CM CALLED BHAVIK JOSÉ MIGUEL, . CM DISCUSSED REHAB OPTIONS. PT'S SPOUSE REPORTS PT WAS ABLE TO GET UP AND WALK TO BATHROOM BUT DOES NOT WALK THAT MUCH SHE WOULD LIKE FOR HIM TO HAVE REHAB TO BE MORE INDEPENDENT IT IS HER AT HOME WITH PT. SHE WOULD LIKE REHAB AT [facility] OR WOULD PREFER [facility] IN [place], ANY OF THEM, IT IS CLOSER TO HER HOME; ONLY ABOUT 8 MILES. CHOICE COMPLETED FOR ANY [facility] FACILITY IN [place]. CM FAXED REFERRAL TO [facility] [phone]. CM CALLED AND LEFT MESSAGE FROM TIM MCARTHUR OF [facility] AT [phone]. CM FAXED REFERRAL TO [facility], . CM CALLED AND SPOKE TO NAVEEN AT [facility], , WHO WILL SCREEN FOR REHAB ADMISSION. PT HAS BEEN DECLINED BY [facility]. CM WAITING ADMISSION DETERMINATIONS FROM [facility]. ISHMAEL MARTÍNEZ, CASE MANAGEMENT Ishmael Martínez DCP- Discharge Planning Updated by [id number]: Ishmael Martínez on 02/26/19 7:[address] Patient Name: GUANACO VALDEZ Encounter No: [id number] : 1935 Primary Insurance: MEDICARE PART A ONLY Anticipated DC Date: 02-26-2019 Planned Disposition: Inpatient Rehab External Planned Provider:[facility] DCP follow-up note: CM RECEIVED CALL FROM LUIS F OF [facility], ,SHE DID NOT RECEIVE EITHER FAX YESTERDAY. CM REVIEWED AND FOUND BOTH FAX CONFIRMATIONS THAT INDICATED FAXES WENT THROUGH [place]. JASONOVIDED "HARD FAX" LINE AND IS GOING TO GET CM AN ADMISSION DETERMINATION TODAY. CM FAXED INPATIENT REHAB REFERRAL TO [facility] AT [phone] AND HARD FAX LINE, . CM WAITING ADMISSION DETERMINATION FROM [facility]. CM CONTINUES WAITING [place] MED[facility] BED TO [facility]SFER TO [facility]. NIKKI Mcmahan DCP- Discharge Planning Updated by [id number]: Ishmael Martínez on 02/25/19 1:[address] Patient Name: GUANACO VALDEZ Encounter No: [id number] : 1935 Primary Insurance: MEDICARE PART A ONLY Anticipated DC Date: 02-26-2019 Planned Disposition: Inpatient Rehab External Planned Provider: [facility] DCP follow-up note: CM SPOKE TO PT IN ROOM REGARDING DISCHARGE PLANNING. PT REPORTS HE IS READY TO GO TO REHAB AND WANTS REHAB AT [facility] AND PREFERS THEM OVER [facility] TRANSFER. PT REPORTS HAVING BEEN TO REHAB AT [facility] AND IT IS CLOSE TO HIS HOME. PT REPORTS FAMILY WILL CLEAN ROOM OPERATOR WHEN ACCEPTED. PT IS NOT INTERESTED IN HALF-WAY REHAB AND FEELS HE CAN PARTICIPATE FULLY IN THREE HOURS OF PROGRESSIVE THERAPY PER DAY WITH PLAN TO DISCHARGE HOME WITH FAMILY AFTER REHAB. IMPORTANT MESSAGE FROM MEDICARE PROVIDED AND EXPLAINED. CM CALLED LUIS F OF [facility], , PROVIDED REFERRAL INFORMATION. LUIS F IS GOING TO TRY TO GET CM AN ADMISSION DETERMINATION TODAY. CM FAXED INPATIENT REHAB REFERRAL TO [facility] AT [phone]. CM WAITING ADMISSION DETERMINATION FROM [facility]. CM CONTINUES WAITING [facility] BED [facility]ER [facility]. Ishmael Martínez CASE MANAGEMENT DCP- Discharge Planning Updated by [id number]: Ishmael Martínez on 02/21/19 1:[address] Patient Name: GUANACO VALDEZ Encounter No: [id number] : 1935 Primary Insurance: MEDICARE PART A ONLY Anticipated DC Date: 02-21-2019 Planned Disposition: Acute [facility] External Planned Provider: [facility] DCP follow-up note: CM REVIEWED CHART, THERE IS NO TRANSFER BACK AGREEMENT IN THE CHART. PAGED AND SPOKE TO TIM PELLETIER REGARDING ORDER TO TRANSFER TO [facility] OR BACK TO [facility]. CM EXPLAINED PROCESS OF TRANSFER, THAT PT IS ON THE [facility] TRANSFER LIST WITH NO AVAILABLE BEDS; CM ASKED FOR REASON FOR TRANSFER REQUEST. AFTER HEALTH SCIENCES PROGRAM COORDINATOR CHECKED WITH DR. BARAJAS, CM WAS ADVISED THAT THE DOCTOR ACCEPTED THE PT THINKING PT WAS A DIALYSIS PATIENT AND THAT THE SYMPTOMS THAT ARE BEING MANAGED COULD BE MANAGED AT [facility]. CM SPOKE TO PT IN ROOM WHO IS STILL WILLING FOR [place] TRANSFER OR BACK TO [facility] STATING IT IS CLOSER TO [place] WHERE I LIVE. KASIA CALLED [facility] PARTS ANALYST, REQUESTED ADMINISTRATIVE APPROVAL. CARISSA PROVIDED APPROVAL FOR ADMIN AIRCRAFT MOTOR MECHANIC DANIEL GARNER. CM CALLED [facility], , SPOKE TO JOSR AND PROVIDED TRANSFER REQUEST INFORMATION. CM RECEIVED CALL FROM JOSR OF [facility] ADMIT [facility], WHO INFORMED CM THAT PT WAS TRANSFERRED FROM ER TO ER, THIS WILL NOT BE A TRANSFER BACK AND JOSR WILL CHECK TO SEE IF THE HOSPITALISTS AT [facility] WILL ACCEPT AND NOTIFY CM SHORTLY. CM WAITING ADMISSION DETERMINATION FROM [facility] AND BED AVAILABILITY AT [facility] FOR TRANSFER. Ishmael Foley, CASE MANAGEMENT DCP- Discharge Planning Updated by [id number]: Ishmael Martínez on 02/20/19 4:[address] Patient Name: GUANACO VALDEZ Admission Status: ER Accout number: [id number] Admission Date: 02-20-2019 : 1935 Admission Diagnosis: Attending: DENNIS BARAJAS Current LOS: 1 Anticipated DC Date: 02-20-2019 Planned Disposition: [place] facility Primary Insurance: MEDICARE PART A ONLY PLANNED EXTERNAL PROVIDER: [facility] Discharge Planning Comments: CM RECEIVED ORDER FOR TRANSFER TO [facility] OR TRANSFER BACK TO [facility]. CM MET WITH PT IN ROOM TO DISCUSS DISCHARGE PLANNING AND NEEDS. PT REPORTS LIVING AT HOME DEPENDENTLY WITH SPOUSE. PT HAS PERSONAL CARE FROM [facility] 5 DAYS PER WEEK, 2 HOURS PER DAY TO ASSIST WITH BATH, PT'S SPOUSE ASSISTS WITH MEDICATION MANAGEMENT. PT HAS BEDSIDE COMMODE, CANE, POWER SCOOTER, SHOWER CHAIR AND WHEELCHAIR FROM THE [facility]. CM DISCUSSED ORDER FOR TRANSFER. PT STATES HE WOULD LIKE TO TRANSFER TO [facility] [place] IF POSSIBLE. . CM CALLED [facility] EXPEDITORGEMMA, , PROVIDED REQUEST FOR VA TRANSFER, RENAL HEALTH SCIENCES PROGRAM COORDINATOR AND MED 2 CONTACT INFORMATION . GEMMA INFORMED CM THAT THE BACK HOE MACHINE OPERATOR WOULD CONTACT THE HOSPITAL WHEN BED BECOMES AVAILABLE. CM WAITING BED TO BECOME AVAILABLE FOR VA TRANSFER, PT IS ON THE LIST. CM TO CONTINUE TO FOLLOW AND ASSIST NEEDED. Fish Skinning Machine Feeder: Ishmael Martínez DCPIA - Discharge Planning Initial Assessment Updated by [id number]: Ishmael Martínez on 02/20/19 4:56 pm * Is the patient Alert and Oriented? Yes * How many steps to enter\\exit or inside your home? RAMP * PCP [facility] * Pharmacy [facility] IN [place], [place]. * Preadmission Environment Home with Family * ADLs Partial Dependent * Partial ADLs (Assistance needed) Bathing Medication Management * Equipment Bedside Commode Cane Power Chair or Electric Scooter Shower Chair Wheelchair * Other Equipment [facility] - MEDICAL EQUIPMENT PROVIDER * List name and contact numbers for known caregivers / representatives who currently or will assist patient after discharge: BHAVIK VALDEZ, SPOUSE, LOU VALDEZ, DTR, * Verbal permission to speak to the caregivers and representatives has been obtained from the patient. Yes * Community resources currently utilized [facility] Care [facility] Services * Please name any agencies selected above. PRIVATE DUTY PERSONAL CARE FROM [facility], 5 DAYS WEEKLY, 2 HOURS PER DAY * Additional services required to return to the preadmission environment? No * Can the patient safely return to the preadmission environment? Yes * Has this patient been hospitalized within the prior 30 days at any hospital? No Coverage Notice Reviewer: [id number] M Martínez Notice Issued Date-Time: 02/25/2019 13:50 Notice Type: IM Discharge Notice Notice Delivered To: Patient Relationship to Patient: Fish Skinning Machine Feeder Name: Delivery Method: HAND - Hand Delivered Sarah Days: Prior Verbal Notification: Recipient Understood Notice: Yes Recipient Signature: Yes Med Rec Note Co-signed by Attending: Coverage Notice Comment: Reviewer: [id number] M Martínez Notice Issued Date-Time: 02/26/2019 13:24 Notice Type: Patient Choice Letter Notice Delivered To: Patient Relationship to Patient: Fish Skinning Machine Feeder Name: Delivery Method: HAND - Hand Delivered Sarah Days: Prior Verbal Notification: Recipient Understood Notice: Yes Recipient Signature: Yes Med Rec Note Co-signed by Attending: Coverage Notice Comment: ANY [facility] DP export: 02/26/19 12:35 p Patient Name: GUANACO VALDEZ Page 34999 at 1356 All edits/amendments must be made on the electronic document DICTATION DATE: 02/26/19 1356 BEHAVIORAL INTERVENTION SPECIALIST: CARLITO 02/26/19 1356 RPT#: [id number] DC DATE: STATUS: ADM IN [facility] [address] [place] [address] END OF REPORT
--- NOTE | 2019-02-26 14:15 | NUR ---
Nutrition follow-up: Diet: Renal ADA PO intake ~60% average of last 6 meals Labs reviewed Wt: 259# +BM RDN following.
--- NOTE | 2019-02-26 19:17 | NUR ---
PATIENT LAYING IN BED. NO COMPLAINTS AT THIS TIME. NO DISTRESS NOTED.
[2019-02-26 19:26] VITALS: BP 156/60
[2019-02-26 20:00] VITALS: BP 138/62
--- NOTE | 2019-02-26 23:18 | NUR ---
PATIENT LAYING IN BED, EYES CLOSED, CHEST RISING AND FALLING. NO DISTRESS NOTED.
[2019-02-27] VITALS: BP 127/55
--- NOTE | 2019-02-27 01:44 | NUR ---
PATIENT LAYING IN BED. NO COMPLAINTS AT THIS TIME. NO DISTRESS NOTED.
[2019-02-27 04:00] VITALS: BP 137/59
--- NOTE | 2019-02-27 04:32 | NUR ---
PATIENT LAYING IN BED. EYES CLOSED, CHEST RISING AND FALLING. NO DISTRESS NOTED.
--- NOTE | 2019-02-27 07:38 | NUR ---
RESUMING PT CARE, PT LAYING IN BED WITH EYES OPEN, ALERT AND ORIENTED X3, CALL LIGHT IN REACH. WILL CONTINUE TO MONITOR AND FOLLOW PLAN OF CARE.
[2019-02-27 09:21] VITALS: BP 136/54
--- NOTE | 2019-02-27 09:48 | NUR ---
I have reviewed this patient and I concur with the Shift Assessment completed by the Licensed Practical Nurse today this shift.
--- NOTE | 2019-02-27 10:56 | MORECARE ---
CASE MANAGEMENT DISCHARGE SUMMARY PATIENT: GUANACO VALDEZ UNIT: [id number] ADM DATE: 02/20/19 AGE: 84 : 36 SEX: M ROOM/BED: D.2102 AUTHOR: MELANIA,DOC PHYSICIAN: REFERRING PHYSICIAN: DENNIS BARAJAS MD DATE OF SERVICE: 02/27/19 Discharge Plan Patient Name: GUANACO VALDEZ Facility: [facility]:[place] : 1935 Planned Disposition: Inpatient Rehab Anticipated Discharge Date: 02/26/19 Discharge Date: Expected LOS: 6 Initial Reviewer: [id number] Initial Review Date: 02/20/2019 Generated: 02/27/19 11:56 am Comments DCP- Discharge Planning Updated by [id number]: Ishmael Martínez on 02/26/19 12:[address] Patient Name: GUANACO VALDEZ Encounter No: [id number] : 1935 Primary Insurance: MEDICARE PART A ONLY Anticipated DC Date: 02-26-2019 Planned Disposition: Inpatient Rehab External Planned Provider: [facility] AT [facility] DCP follow-up note: CM SPOKE TO LUIS F OF [facility] INPATIENT REH[facility], PT IS NOT MEETING CRITERIA FOR ADMISSION, RECOMMENDS [facility]. CM MET WITH PT IN ROOM, DISCUSSED ABOVE AND REHAB OPTIONS. PT AGREEABLE TO REHAB AT [place] IF THEY WILL TAKE HIM OR [facility] CLOSER TO HOME. PT ASKED CM TO CALL HIS FOR DISCHARGE PLANNING. CM CALLED BHAVIK JOSÉ MIGUEL, . CM DISCUSSED REHAB OPTIONS. PT'S SPOUSE REPORTS PT WAS ABLE TO GET UP AND WALK TO BATHROOM BUT DOES NOT WALK THAT MUCH SHE WOULD LIKE FOR HIM TO HAVE REHAB TO BE MORE INDEPENDENT IT IS HER AT HOME WITH PT. SHE WOULD LIKE REHAB AT [place] OR WOULD PREFER [facility] IN [place], ANY OF THEM, IT IS CLOSER TO HER HOME; ONLY ABOUT 8 MILES. CHOICE COMPLETED FOR ANY [facility] FACILITY IN [place]. CM FAXED REFERRAL TO [facility] INPATIENT [phone]. CM CALLED AND LEFT MESSAGE FROM TIM MCARTHUR OF [place] [facility] AT [phone]. CM FAXED REFERRAL TO [facility], . CM CALLED AND SPOKE TO NAVEEN AT [facility], , WHO WILL SCREEN FOR REHAB ADMISSION. PT HAS BEEN DECLINED BY [facility]. CM WAITING ADMISSION DETERMINATIONS FROM [facility] REH[facility]. ISHMAEL MARTÍNEZ, CASE MANAGEMENT Ishmael Martínez DCP- Discharge Planning Updated by [id number]: Ishmael Martínez on 02/26/19 7:[address] Patient Name: GUANACO VALDEZ Encounter No: [id number] : 1935 Primary Insurance: MEDICARE PART A ONLY Anticipated DC Date: 02-26-2019 Planned Disposition: Inpatient Rehab External Planned Provider:[facility] DCP follow-up note: CM RECEIVED CALL FROM LUIS F OF [facility] IN[facility] RE[facility], ,SHE DID NOT RECEIVE EITHER FAX YESTERDAY. CM REVIEWED AND FOUND BOTH FAX CONFIRMATIONS THAT INDICATED FAXES WENT THROUGH [place]. JASONOVIDED "HARD FAX" LINE AND IS GOING TO GET CM AN ADMISSION DETERMINATION TODAY. CM FAXED INPATIENT REHAB REFERRAL TO [facility] AT [phone] AND HARD FAX LINE, . CM WAITING ADMISSION DETERMINATION FROM [facility]. CM CONTINUES WAITING [place] MEDICAL BED TO TRANSFER TO [facility]. NIKKI Mcmahan DCP- Discharge Planning Updated by [id number]: Ishmael Martínez on 02/25/19 1:[address] Patient Name: GUANACO VALDEZ Encounter No: [id number] : 1935 Primary Insurance: MEDICARE PART A ONLY Anticipated DC Date: 02-26-2019 Planned Disposition: Inpatient Rehab External Planned Provider: [facility] DCP follow-up note: CM SPOKE TO PT IN ROOM REGARDING DISCHARGE PLANNING. PT REPORTS HE IS READY TO GO TO REHAB AND WANTS REHAB AT [facility] RE[facility] AND PREFERS THEM OVER [facility] TRANSFER. PT REPORTS HAVING BEEN TO REHAB AT [facility] AND IT IS CLOSE TO HIS HOME. PT REPORTS FAMILY WILL TAPPER BIT WHEN ACCEPTED. PT IS NOT INTERESTED IN [facility] RE[facility] AND FEELS HE CAN PARTICIPATE FULLY IN THREE HOURS OF PROGRESSIVE THERAPY PER DAY WITH PLAN TO DISCHARGE HOME WITH FAMILY AFTER REHAB. IMPORTANT MESSAGE FROM MEDICARE PROVIDED AND EXPLAINED. CM CALLED LUIS F OF [facility], , PROVIDED REFERRAL INFORMATION. LUIS F IS GOING TO TRY TO GET CM AN ADMISSION DETERMINATION TODAY. CM FAXED INPATIENT REHAB REFERRAL TO [facility] AT [phone]. CM WAITING ADMISSION DETERMINATION FROM [facility]. CM CONTINUES WAITING [place] MEDICAL BED TO TRANSFER TO [facility]. Ishmael Martínez CASE MANAGEMENT DCP- Discharge Planning Updated by [id number]: Ishmael Martínez on 02/21/19 1:[address] Patient Name: GUANACO VALDEZ Encounter No: [id number] : 1935 Primary Insurance: MEDICARE PART A ONLY Anticipated DC Date: 02-21-2019 Planned Disposition: Acute [facility] External Planned Provider: [facility] DCP follow-up note: CM REVIEWED CHART, THERE IS NO TRANSFER BACK AGREEMENT IN THE CHART. PAGED AND SPOKE TO TIM PELLETIER REGARDING ORDER TO TRANSFER TO [place] OR BACK TO [facility]. CM EXPLAINED PROCESS OF TRANSFER, THAT PT IS ON THE [place] TRANSFER LIST WITH NO AVAILABLE BEDS; CM ASKED FOR REASON FOR TRANSFER REQUEST. AFTER CLASSIFICATION OFFICER CHECKED WITH DR. BARAJAS, CM WAS ADVISED THAT THE DOCTOR ACCEPTED THE PT THINKING PT WAS A DIALYSIS PATIENT AND THAT THE SYMPTOMS THAT ARE BEING MANAGED COULD BE MANAGED AT [facility]. CM SPOKE TO PT IN ROOM WHO IS STILL WILLING FOR [place] TRANSFER OR BACK TO [facility] STATING IT IS CLOSER TO [place] WHERE I LIVE. KASIA CALLED [facility] FAST FOOD SERVICES MANAGER, REQUESTED ADMINISTRATIVE APPROVAL. CARISSA PROVIDED APPROVAL FOR ADMIN GI PHYSICIAN DANIEL GARNER. CM CALLED [facility] EASY ADMIT LINE, , SPOKE TO JOSR AND PROVIDED TRANSFER REQUEST INFORMATION. CM RECEIVED CALL FROM JOSR OF [facility] EASY ADMIT LINE, WHO INFORMED CM THAT PT WAS TRANSFERRED FROM ER TO ER, THIS WILL NOT BE A TRANSFER BACK AND JOSR WILL CHECK TO SEE IF THE HOSPITALISTS AT [facility] WILL ACCEPT AND NOTIFY CM SHORTLY. CM WAITING ADMISSION DETERMINATION FROM [facility] AND BED AVAILABILITY AT [facility] FOR TRANSFER. Ishmael Wayton, CASE MANAGEMENT DCP- Discharge Planning Updated by [id number]: Ishmael Martínez on 02/20/19 4:[address] Patient Name: GUANACO VALDEZ Admission Status: ER Accout number: [id number] Admission Date: 02-20-2019 : 1935 Admission Diagnosis: Attending: DENNIS BARAJAS Current LOS: 1 Anticipated DC Date: 02-20-2019 Planned Disposition: [place] facility Primary Insurance: MEDICARE PART A ONLY PLANNED EXTERNAL PROVIDER: [facility] Discharge Planning Comments: CM RECEIVED ORDER FOR TRANSFER TO [facility] OR TRANSFER BACK TO [facility]. CM MET WITH PT IN ROOM TO DISCUSS DISCHARGE PLANNING AND NEEDS. PT REPORTS LIVING AT HOME DEPENDENTLY WITH SPOUSE. PT HAS PERSONAL CARE FROM [place] 5 DAYS PER WEEK, 2 HOURS PER DAY TO ASSIST WITH BATH, PT'S SPOUSE ASSISTS WITH MEDICATION MANAGEMENT. PT HAS BEDSIDE COMMODE, CANE, POWER SCOOTER, SHOWER CHAIR AND WHEELCHAIR FROM THE [facility]. CM DISCUSSED ORDER FOR TRANSFER. PT STATES HE WOULD LIKE TO TRANSFER TO [place] IN [place] IF POSSIBLE. . CM CALLED [facility] EXPEDITOR[facility], , PROVIDED REQUEST FOR [facility] TRANSFER, RENAL CLASSIFICATION OFFICER AND MED 2 CONTACT INFORMATION . GEMMA INFORMED CM THAT THE RENEWABLE ENERGY TECHNICIAN WOULD CONTACT THE HOSPITAL WHEN BED BECOMES AVAILABLE. CM WAITING BED TO BECOME AVAILABLE FOR VA TRANSFER, PT IS ON THE LIST. CM TO CONTINUE TO FOLLOW AND ASSIST NEEDED. Grape Crusher: Ishmael Martínez DCPIA - Discharge Planning Initial Assessment Updated by [id number]: Ishmael Martínez on 02/20/19 4:56 pm * Is the patient Alert and Oriented? Yes * How many steps to enter\\exit or inside your home? RAMP * PCP [facility] * Pharmacy [facility] IN [place], [place]. * Preadmission Environment Home with Family * ADLs Partial Dependent * Partial ADLs (Assistance needed) Bathing Medication Management * Equipment Bedside Commode Cane Power Chair or Electric Scooter Shower Chair Wheelchair * Other Equipment [facility] - MEDICAL EQUIPMENT PROVIDER * List name and contact numbers for known caregivers / representatives who currently or will assist patient after discharge: BHAVIK VALDEZ, SPOUSE, LOU VALDEZ, DTR, * Verbal permission to speak to the caregivers and representatives has been obtained from the patient. Yes * Community resources currently utilized [facility] * Please name any agencies selected above. PRIVATE DUTY [facility]AL [facility] FROM [facility], 5 DAYS WEEKLY, 2 HOURS PER DAY * Additional services required to return to the preadmission environment? No * Can the patient safely return to the preadmission environment? Yes * Has this patient been hospitalized within the prior 30 days at any hospital? No Coverage Notice Reviewer: [id number] M Martínez Notice Issued Date-Time: 02/25/2019 13:50 Notice Type: IM Discharge Notice Notice Delivered To: Patient Relationship to Patient: Information Systems Director Name: Delivery Method: HAND - Hand Delivered Sarah Days: Prior Verbal Notification: Recipient Understood Notice: Yes Recipient Signature: Yes Med Rec Note Co-signed by Attending: Coverage Notice Comment: Reviewer: [id number] M Martínez Notice Issued Date-Time: 02/26/2019 13:24 Notice Type: Patient Choice Letter Notice Delivered To: Patient Relationship to Patient: Information Systems Director Name: Delivery Method: HAND - Hand Delivered Sarah Days: Prior Verbal Notification: Recipient Understood Notice: Yes Recipient Signature: Yes Med Rec Note Co-signed by Attending: Coverage Notice Comment: ANY [facility] DP export: 02/26/19 12:56 p Patient Name: GUANACO VALDEZ Page 52085 at 1056 All edits/amendments must be made on the electronic document DICTATION DATE: 02/27/19 1056 METALIZING MACHINE OPERATOR AUTOMATIC: CARLITO 02/27/19 1056 RPT#: [id number] DC DATE: STATUS: ADM IN [facility] [address] [place] [address] END OF REPORT
--- NOTE | 2019-02-27 11:24 | MORECARE ---
CASE MANAGEMENT DISCHARGE SUMMARY PATIENT: GUANACO VALDEZ UNIT: [id number] ADM DATE: 02/20/19 AGE: 84 : 36 SEX: M ROOM/BED: D.2102 AUTHOR: GEO VELÁZQUEZ PHYSICIAN: REFERRING PHYSICIAN: DENNIS BARAJAS MD DATE OF SERVICE: 02/27/19 Discharge Plan Patient Name: GUANACO VALDEZ Facility: [facility]:[place] : 1935 Planned Disposition: Inpatient Rehab Anticipated Discharge Date: 02/26/19 Discharge Date: Expected LOS: 6 Initial Reviewer: [id number] Initial Review Date: 02/20/2019 Generated: 02/27/19 12:24 pm Comments DCP- Discharge Planning Updated by [id number]: Ishmael Martínez on 02/27/19 10:[address] Patient Name: GUANACO VALDEZ Encounter No: [id number] : 1935 Primary Insurance: MEDICARE PART A ONLY Anticipated DC Date: 02-26-2019 Planned Disposition: [facility] REHAB External Planned Provider: [facility], MEDICARE REHAB BED DCP follow-up note: CM RECEIVED MESSAGE FROM TIM MCARTHUR OF [facility] INPATIENT REH[facility], THEY DECLINED PT THINKING PT IS OUTPATIENT DIALYSIS PT. CM LEFT MESSAGE FROM TIM MCARTHUR THAT PT IS NOT DIALYSIS PATIENT AT THIS TIME. CM FAXED REFERRAL UDATE TO [facility] INPATIENT [phone]. CM FAXED REFERRAL UPDATE TO NAVEEN AT [facility], . PT HAS BEEN DECLINED BY [facility] INPATIENT REH[facility]. CM WAITING ADMISSION DETERMINATIONS FROM [facility] INPATIENT REHAB [facility]. ISHMAEL MARTÍNEZ, CASE MANAGEMENT DCP- Discharge Planning Updated by [id number]: Ishmael Martínez on 02/26/19 12:[address] Patient Name: GUANACO VALDEZ Encounter No: [id number] : 1935 Primary Insurance: MEDICARE PART A ONLY Anticipated DC Date: 02-26-2019 Planned Disposition: Inpatient Rehab External Planned Provider: [facility] OR SNF REHAB AT [place] [facility] RE[facility] DCP follow-up note: CM SPOKE TO LUIS F OF [facility] INPATIENT REHAB, PT IS NOT MEETING CRITERIA FOR ADMISSION, RECOMMENDS [facility] REH[facility] SERVICES. CM MET WITH PT IN ROOM, DISCUSSED ABOVE AND REHAB OPTIONS. PT AGREEABLE TO REHAB AT [facility] IF THEY WILL TAKE HIM OR [facility] RE[facility] CLOSER TO HOME. PT ASKED CM TO CALL HIS FOR DISCHARGE PLANNING. CM CALLED BHAVIK VALDEZ, . CM DISCUSSED REHAB OPTIONS. PT'S SPOUSE REPORTS PT WAS ABLE TO GET UP AND WALK TO BATHROOM BUT DOES NOT WALK THAT MUCH SHE WOULD LIKE FOR HIM TO HAVE REHAB TO BE MORE INDEPENDENT IT IS HER AT HOME WITH PT. SHE WOULD LIKE REHAB AT [place] OR WOULD PREFER [facility] IN [place], ANY OF THEM, IT IS CLOSER TO HER HOME; ONLY ABOUT 8 MILES. CHOICE COMPLETED FOR ANY SHELTER FACILITY IN [place]. CM FAXED REFERRAL TO [facility] INPATIENT [phone]. CM CALLED AND LEFT MESSAGE FROM TIM MCARTHUR OF [place] [facility] AT [phone]. CM FAXED REFERRAL TO [facility], . CM CALLED AND SPOKE TO NAVEEN AT [facility], , WHO WILL SCREEN FOR REHAB ADMISSION. PT HAS BEEN DECLINED BY [facility] INPATIENT REH[facility]. CM WAITING ADMISSION DETERMINATIONS FROM [facility] INPATIENT REHAB [facility]. ISHMAEL MARTÍNEZ, CASE MANAGEMENT Ishmael Martínez DCP- Discharge Planning Updated by [id number]: Ishmael Martínez on 02/26/19 7:[address] Patient Name: GUANACO VALDEZ Encounter No: [id number] : 1935 Primary Insurance: MEDICARE PART A ONLY Anticipated DC Date: 02-26-2019 Planned Disposition: Inpatient Rehab External Planned Provider:[facility] DCP follow-up note: CM RECEIVED CALL FROM LUIS F OF [facility] INPATIENT REH[facility], ,SHE DID NOT RECEIVE EITHER FAX YESTERDAY. KASIA REVIEWED AND FOUND BOTH FAX CONFIRMATIONS THAT INDICATED FAXES WENT THROUGH [place]. YOCASTADED "HARD FAX" LINE AND IS GOING TO GET CM AN ADMISSION DETERMINATION TODAY. CM FAXED INPATIENT REHAB REFERRAL TO [facility] AT [phone] AND HARD FAX LINE, . CM WAITING ADMISSION DETERMINATION FROM [facility] INPATIENT REHAB. CM CONTINUES WAITING [place] MEDICAL BED TO TRANSFER TO [facility]. NIKKI Mcmahan MANAGEMENT DCP- Discharge Planning Updated by [id number]: Ishmael Martínez on 02/25/19 1:[address] Patient Name: GUANACO VALDEZ Encounter No: [id number] : 1935 Primary Insurance: MEDICARE PART A ONLY Anticipated DC Date: 02-26-2019 Planned Disposition: Inpatient Rehab External Planned Provider: [facility] DCP follow-up note: CM SPOKE TO PT IN ROOM REGARDING DISCHARGE PLANNING. PT REPORTS HE IS READY TO GO TO REHAB AND WANTS REHAB AT [facility] INPATIENT REHAB AND PREFERS THEM OVER [facility] TRANSFER. PT REPORTS HAVING BEEN TO REHAB AT [facility] AND IT IS CLOSE TO HIS HOME. PT REPORTS FAMILY WILL ADMINISTRATOR HEALTH CARE FACILITY WHEN ACCEPTED. PT IS NOT INTERESTED IN [facility] REHAB AND FEELS HE CAN PARTICIPATE F[place]Y IN THREE HOURS OF PROGRESSIVE THERAPY PER DAY WITH PLAN TO DISCHARGE HOME WITH FAMILY AFTER REHAB. IMPORTANT MESSAGE FROM MEDICARE PROVIDED AND EXPLAINED. CM CALLED LUIS F OF [facility] INPATIENT REHAB, , PROVIDED REFERRAL INFORMATION. LUIS F IS GOING TO TRY TO GET CM AN ADMISSION DETERMINATION TODAY. CM FAXED INPATIENT REHAB REFERRAL TO [facility] AT [phone]. CM WAITING ADMISSION DETERMINATION FROM [facility] IN[facility] REH[facility]. CM CONTINUES WAITING [place] MEDICAL BED TO TRANSFER TO [facility]. NIKKI Mcmahan DCP- Discharge Planning Updated by [id number]: Ishmael Martínez on 02/21/19 1:[address] Patient Name: GUANACO VALDEZ Encounter No: [id number] : 1935 Primary Insurance: MEDICARE PART A ONLY Anticipated DC Date: 02-21-2019 Planned Disposition: Acute Care Hospital External Planned Provider: [facility] DCP follow-up note: CM REVIEWED CHART, THERE IS NO TRANSFER BACK AGREEMENT IN THE CHART. PAGED AND SPOKE TO TIM PELLETIER REGARDING ORDER TO TRANSFER TO [place] OR BACK TO [facility]. CM EXPLAINED PROCESS OF TRANSFER, THAT PT IS ON THE [facility] TRANSFER LIST WITH NO AVAILABLE BEDS; CM ASKED FOR REASON FOR TRANSFER REQUEST. AFTER PARACHUTE/COMBATANT DIVER OFFICER CHECKED WITH DR. BARAJAS, CM WAS ADVISED THAT THE DOCTOR ACCEPTED THE PT THINKING PT WAS A DIALYSIS PATIENT AND THAT THE SYMPTOMS THAT ARE BEING MANAGED COULD BE MANAGED AT [facility]. CM SPOKE TO PT IN ROOM WHO IS STILL WILLING FOR [place] TRANSFER OR BACK TO [facility] STATING IT IS CLOSER TO [place] WHERE I LIVE. CM CALLED [facility], DANCE ARTIST, REQUESTED ADMINISTRATIVE APPROVAL. CARISSA PROVIDED APPROVAL FOR ADMIN CLERICAL COORDINATOR DANIEL GARNER. CM CALLED [facility] EASY ADMIT LINE, , SPOKE TO JOSR AND PROVIDED TRANSFER REQUEST INFORMATION. CM RECEIVED CALL FROM JOSR OF [facility] EAS[facility] ADMIT LINE, WHO INFORMED CM THAT PT WAS TRANSFERRED FROM ER TO ER, THIS WILL NOT BE A TRANSFER BACK AND JOSR WILL CHECK TO SEE IF THE HOSPITALISTS AT [facility] WILL ACCEPT AND NOTIFY CM SHORTLY. CM WAITING ADMISSION DETERMINATION FROM [facility] AND BED AVAILABILITY AT [facility] FOR TRANSFER. Ishmael Martínez, CASE MANAGEMENT DCP- Discharge Planning Updated by [id number]: Ishmael Martínez on 02/20/19 4:[address] Patient Name: GUANACO VALDEZ Admission Status: ER Accout number: [id number] Admission Date: 02-20-2019 : 1935 Admission Diagnosis: Attending: DENNIS BARAJAS Current LOS: 1 Anticipated DC Date: 02-20-2019 Planned Disposition: [place] facility Primary Insurance: MEDICARE PART A ONLY PLANNED EXTERNAL PROVIDER: [facility] Discharge Planning Comments: CM RECEIVED ORDER FOR TRANSFER TO [facility] OR TRANSFER BACK TO [facility]. CM MET WITH PT IN ROOM TO DISCUSS DISCHARGE PLANNING AND NEEDS. PT REPORTS LIVING AT HOME DEPENDENTLY WITH SPOUSE. PT HAS PERSONAL CARE FROM [place] 5 DAYS PER WEEK, 2 HOURS PER DAY TO ASSIST WITH BATH, PT'S SPOUSE ASSISTS WITH MEDICATION MANAGEMENT. PT HAS BEDSIDE COMMODE, CANE, POWER SCOOTER, SHOWER CHAIR AND WHEELCHAIR FROM THE [place]. CM DISCUSSED ORDER FOR TRANSFER. PT STATES HE WOULD LIKE TO TRANSFER TO [place] IF POSSIBLE. . CM CALLED [facility], , PROVIDED REQUEST FOR [facility] TRANSFER, RENAL PARACHUTE/COMBATANT DIVER OFFICER AND MED 2 CONTACT INFORMATION . GEMMA INFORMED CM THAT THE BEATER OUT LEVELING MACHINE WOULD CONTACT THE HOSPITAL WHEN BED BECOMES AVAILABLE. CM WAITING BED TO BECOME AVAILABLE FOR [facility] TRANSFER, PT IS ON THE LIST. CM TO CONTINUE TO FOLLOW AND ASSIST NEEDED. Embedder: Ishmael Martínez DCPIA - Discharge Planning Initial Assessment Updated by LETICIA: Ishmael Martínez on 02/20/19 4:56 pm * Is the patient Alert and Oriented? Yes * How many steps to enter\\exit or inside your home? RAMP * PCP [facility] * [facility] IN [place], [place]. * Preadmission Environment Home with Family * ADLs Partial Dependent * Partial ADLs (Assistance needed) Bathing Medication Management * Equipment Bedside Commode Cane Power Chair or Electric Scooter Shower Chair Wheelchair * Other Equipment [facility] - MEDICAL EQUIPMENT PROVIDER * List name and contact numbers for known caregivers / representatives who currently or will assist patient after discharge: BHAVIKMOO VALDEZ, SPOUSE, LOU VALDEZ, DTR, * Verbal permission to speak to the caregivers and representatives has been obtained from the patient. Yes * Community resources currently utilized Private [facility] Services * Please name any agencies selected above. PRIVATE DUTY PERSONAL CARE FROM [place], 5 DAYS WEEKLY, 2 HOURS PER DAY * Additional services required to return to the preadmission environment? No * Can the patient safely return to the preadmission environment? Yes * Has this patient been hospitalized within the prior 30 days at any hospital? No Coverage Notice Reviewer: [id number] Martínez Notice Issued Date-Time: 02/25/2019 13:50 Notice Type: IM Discharge Notice Notice Delivered To: Patient Relationship to Patient: Customer Consulting Manager Name: Delivery Method: HAND - Hand Delivered Sarah Days: Prior Verbal Notification: Recipient Understood Notice: Yes Recipient Signature: Yes Med Rec Note Co-signed by Attending: Coverage Notice Comment: Reviewer: [id number] M Martínez Notice Issued Date-Time: 02/26/2019 13:24 Notice Type: Patient Choice Letter Notice Delivered To: Patient Relationship to Patient: Customer Consulting Manager Name: Delivery Method: HAND - Hand Delivered Sarah Days: Prior Verbal Notification: Recipient Understood Notice: Yes Recipient Signature: Yes Med Rec Note Co-signed by Attending: Coverage Notice Comment: ANY [facility] REHAB IN [facility] DP export: 02/27/19 9:56 am Patient Name: IMANI VALDEZVIS Page 89775 at 1124 All edits/amendments must be made on the electronic document DICTATION DATE: 02/27/191122 ORANGE PICKER MACHINE OPERATOR: CARLITO 02/27/191122 RPT#: [id number] DC DATE: STATUS: ADM IN [facility] [address] [place] [address] END OF REPORT
[2019-02-27 12:07] VITALS: BP 127/64
--- NOTE | 2019-02-27 12:43 | NUR ---
PT SITTING UP IN CHAIR AT BEDSIDE, DENIES NEEDS AT THIS TIME. CALL LIGHT IN REACH, WILL CONTINUE TO MONITOR.
--- NOTE | 2019-02-27 15:53 | MORECARE ---
CASE MANAGEMENT DISCHARGE SUMMARY PATIENT: GUANACO VALDEZ UNIT: [id number] ADM DATE: 02/20/19 AGE: 84 : 36 SEX: M ROOM/BED: D.2102 AUTHOR: MELANIA,DOC PHYSICIAN: REFERRING PHYSICIAN: DENNIS BARAJAS MD DATE OF SERVICE: 02/27/19 Discharge Plan Patient Name: GUANACO VALDEZ Facility: [facility]:[place] : 1935 Planned Disposition: Inpatient Rehab Anticipated Discharge Date: 02/26/19 Discharge Date: Expected LOS: 6 Initial Reviewer: LETICIA Initial Review Date: 02/20/2019 Generated: 02/27/19 4:53 pm Comments DCP- Discharge Planning Updated by LETICIA: Ishmael Martínez on 02/27/19 2:[address] Patient Name: GUANACO VALDEZ Encounter No: [id number] : 1935 Primary Insurance: MEDICARE PART A ONLY Anticipated DC Date: 02-26-2019 Planned Disposition: ALF REHAB External Planned Provider: [facility], MEDICARE REHAB BED DCP follow-up note: CM RECEIVED MESSAGE FROM TIM MCARTHUR OF [facility] INPATIENT REHAB, THEY DECLINED PT THINKING PT IS OUTPATIENT DIALYSIS PT. CM LEFT MESSAGE FROM TIM MCARTHUR THAT PT IS NOT DIALYSIS PATIENT AT THIS TIME. CM FAXED REFERRAL UDATE TO [facility] INPATIENT [phone]. CM FAXED REFERRAL UPDATE TO NAVEEN AT [facility], . PT HAS BEEN DECLINED BY [facility]. CM WAITING ADMISSION DETERMINATIONS FROM [facility] INPATIENT REHAB [facility]. ISHMAEL MARTÍNEZ, CASE MANAGEMENT Appended by Ishmael Martínez on 02/27/2019 15:49 CDT: CM RECEIVED CALL FROM KYLAH MADDOX [facility] WHO WILL COME MORNING OF 02-28-19 TO EVALUATE PT FOR ADMISSION TO [facility]. PT HAS BEEN DECLINED BY [facility]. CM WAITING ADMISSION DETERMINATIONS FROM [facility] INPATIENT REHAB [facility]. NIKKI CALI DCP- Discharge Planning Updated by [id number]: Ishmael Martínez on 02/26/19 12:[address] Patient Name: GUANACO VALDEZ Encounter No: [id number] : 1935 Primary Insurance: MEDICARE PART A ONLY Anticipated DC Date: 02-26-2019 Planned Disposition: Inpatient Rehab External Planned Provider: [facility] OR SNF REHAB AT [facility] DCP follow-up note: CM SPOKE TO LUIS F OF [facility] INPATIENT REHAB, PT IS NOT MEETING CRITERIA FOR ADMISSION, RECOMMENDS ALF REHAB SERVICES. CM MET WITH PT IN ROOM, DISCUSSED ABOVE AND REHAB OPTIONS. PT AGREEABLE TO REHAB AT [place] IF THEY WILL TAKE HIM OR ALF REHAB CLOSER TO HOME. PT ASKED CM TO CALL HIS FOR DISCHARGE PLANNING. CM CALLED BHAVIK JOSÉ MIGUEL, . CM DISCUSSED REHAB OPTIONS. PT'S SPOUSE REPORTS PT WAS ABLE TO GET UP AND WALK TO BATHROOM BUT DOES NOT WALK THAT MUCH SHE WOULD LIKE FOR HIM TO HAVE REHAB TO BE MORE INDEPENDENT IT IS HER AT HOME WITH PT. SHE WOULD LIKE REHAB [place] OR WOULD PREFER ALF IN [place], ANY OF THEM, IT IS CLOSER TO HER HOME; ONLY ABOUT 8 MILES. CHOICE COMPLETED FOR ANY ALF FACILITY IN [place]. CM FAXED REFERRAL TO [facility] INPATIENT [phone]. CM CALLED AND LEFT MESSAGE FROM TIM MCARTHUR OF [place] [facility] [place] AT [phone]. CM FAXED REFERRAL TO [facility], . CM CALLED AND SPOKE TO NAVEEN AT [facility], , WHO WILL SCREEN FOR REHAB ADMISSION. PT HAS BEEN DECLINED BY [facility]. CM WAITING ADMISSION DETERMINATIONS FROM [facility]PATIENT REH[facility]. ISHMAEL MARTÍNEZ, CASE MANAGEMENT Ishmael Martínez DCP- Discharge Planning Updated by [id number]: Ishmael Martínez on 02/26/19 7:[address] Patient Name: GUANACO VALDEZ Encounter No: [id number] : 1935 Primary Insurance: MEDICARE PART A ONLY Anticipated DC Date: 02-26-2019 Planned Disposition: Inpatient Rehab External Planned Provider:[facility] DCP follow-up note: CM RECEIVED CALL FROM LUIS F OF [facility], ,SHE DID NOT RECEIVE EITHER FAX YESTERDAY. CM REVIEWED AND FOUND BOTH FAX CONFIRMATIONS THAT INDICATED FAXES WENT THROUGH [place]. JASONOVIDED "HARD FAX" LINE AND IS GOING TO GET CM AN ADMISSION DETERMINATION TODAY. CM FAXED INPATIENT REHAB REFERRAL TO [facility] AT [phone] AND HARD FAX LINE, . CM WAITING ADMISSION DETERMINATION FROM [facility]. CM CONTINUES WAITING [place] MEDICAL BED TO TRANSFER TO [facility]. Ishmael Martínez CASE MANAGEMENT DCP- Discharge Planning Updated by [id number]: Ishmael Martínez on 02/25/19 1:[address] Patient Name: GUANACO VALDEZ Encounter No: [id number] : 1935 Primary Insurance: MEDICARE PART A ONLY Anticipated DC Date: 02-26-2019 Planned Disposition: Inpatient Rehab External Planned Provider: [facility] DCP follow-up note: CM SPOKE TO PT IN ROOM REGARDING DISCHARGE PLANNING. PT REPORTS HE IS READY TO GO TO REHAB AND [facility] AND PREFERS THEM OVER [facility]. PT REPORTS HAVING BEEN TO REHAB AT [facility] AND IT IS CLOSE TO HIS HOME. PT REPORTS FAMILY WILL SOCIAL MEDIA MARKETING SPECIALIST WHEN ACCEPTED. PT IS NOT INTERESTED IN [facility] REHAB AND FEELS HE CAN PARTICIPATE [facility] IN THREE HOURS OF PROGRESSIVE THERAPY PER DAY WITH PLAN TO DISCHARGE HOME WITH FAMILY AFTER REHAB. IMPORTANT MESSAGE FROM MEDICARE PROVIDED AND EXPLAINED. CM CALLED LUIS F OF [facility], , PROVIDED REFERRAL INFORMATION. LUIS F IS GOING TO TRY TO GET CM AN ADMISSION DETERMINATION TODAY. CM FAXED INPATIENT REHAB REFERRAL TO [facility] AT [phone]. CM WAITING ADMISSION DETERMINATION FROM [facility]. CM CONTINUES WAITING [place] MEDICAL BED TO TRANSFER TO [facility]. Ishmael Martínez CASE MANAGEMENT DCP- Discharge Planning Updated by [id number]: Ishmael Martínez on 02/21/19 1:[address] Patient Name: GUANACO VALDEZ Encounter No: [id number] : 1935 Primary Insurance: MEDICARE PART A ONLY Anticipated DC Date: 02-21-2019 Planned Disposition: Acute Care Hospital External Planned Provider: [facility] [place] DCP follow-up note: CM REVIEWED CHART, THERE IS NO TRANSFER BACK AGREEMENT IN THE CHART. PAGED AND SPOKE TO TIM PELLETIER REGARDING ORDER TO TRANSFER TO [place] OR BACK TO [facility]. CM EXPLAINED PROCESS OF TRANSFER, THAT PT IS ON THE [place] TRANSFER LIST WITH NO AVAILABLE BEDS; CM ASKED FOR REASON FOR TRANSFER REQUEST. AFTER AIR CHIPPER CHECKED WITH DR. BARAJAS, CM WAS ADVISED THAT THE DOCTOR ACCEPTED THE PT THINKING PT WAS A DIALYSIS PATIENT AND THAT THE SYMPTOMS THAT ARE BEING MANAGED COULD BE MANAGED AT [facility]. CM SPOKE TO PT IN ROOM WHO IS STILL WILLING FOR [place] TRANSFER OR BACK TO [facility] STATING IT IS CLOSER TO [place] WHERE I LIVE. CM CALLED VEDA, FURNITURE SHAMPOOER, REQUESTED ADMINISTRATIVE APPROVAL. CARISSA PROVIDED APPROVAL FOR ADMIN COMPONENT ASSEMBLER SUPERVISOR DANIEL GARNER. CM CALLED [facility] EASY ADMIT LINE, , SPOKE TO JOSR AND PROVIDED TRANSFER REQUEST INFORMATION. CM RECEIVED CALL FROM JOSR OF [facility] EASY ADMIT LINE, WHO INFORMED CM THAT PT WAS TRANSFERRED FROM ER TO ER, THIS WILL NOT BE A TRANSFER BACK AND JOSR WILL CHECK TO SEE IF THE HOSPITALISTS AT [facility] WILL ACCEPT AND NOTIFY CM SHORTLY. CM WAITING ADMISSION DETERMINATION FROM [facility] AND BED AVAILABILITY AT [facility] FOR TRANSFER. Ishmael Martínez, CASE MANAGEMENT DCP- Discharge Planning Updated by [id number]: Ishmael Martínez on 02/20/19 4:[address] Patient Name: GUANACO VALDEZ Admission Status: ER Accout number: [id number] Admission Date: 02-20-2019 : 1935 Admission Diagnosis: Attending: DENNIS BARAJAS Current LOS: 1 Anticipated DC Date: 02-20-2019 Planned Disposition: [place] facility Primary Insurance: MEDICARE PART A ONLY PLANNED EXTERNAL PROVIDER: [facility] Discharge Planning Comments: CM RECEIVED ORDER FOR TRANSFER TO [place] [facility] OR TRANSFER BACK TO [facility]. CM MET WITH PT IN ROOM TO DISCUSS DISCHARGE PLANNING AND NEEDS. PT REPORTS LIVING AT HOME DEPENDENTLY WITH SPOUSE. PT HAS PERSONAL CARE FROM [place] 5 DAYS PER WEEK, 2 HOURS PER DAY TO ASSIST WITH BATH, PT'S SPOUSE ASSISTS WITH MEDICATION MANAGEMENT. PT HAS BEDSIDE COMMODE, CANE, POWER SCOOTER, SHOWER CHAIR AND [facility]CHAIR [facility]. CM DISCUSSED ORDER FOR TRANSFER. PT STATES HE WOULD LIKE TO TRANSFER TO [place] IF POSSIBLE. . CM CALLED [place] EXPEDITOR, GEMMA, , PROVIDED REQUEST FOR [facility] TRANSFER, RENAL AIR CHIPPER AND MED 2 CONTACT INFORMATION . GEMMA INFORMED CM THAT THE AIRPORT OPERATIONS MANAGER WOULD CONTACT THE HOSPITAL WHEN BED BECOMES AVAILABLE. CM WAITING BED TO BECOME AVAILABLE FOR [facility] TRANSFER, PT IS ON THE LIST. CM TO CONTINUE TO FOLLOW AND ASSIST NEEDED. Rod Finisher: Ishmael Martínez DCPIA - Discharge Planning Initial Assessment Updated by [id number]: Ishmael Martínez on 02/20/19 4:56 pm * Is the patient Alert and Oriented? Yes * How many steps to enter\\exit or inside your home? RAMP * PCP [facility] * Pharmacy [place] [facility] IN [place], [place]. * Preadmission Environment Home with Family * ADLs Partial Dependent * Partial ADLs (Assistance needed) Bathing Medication Management * Equipment Bedside Commode Cane Power Chair or Electric Scooter Shower Chair Wheelchair * Other Equipment [facility] - MEDICAL EQUIPMENT PROVIDER * List name and contact numbers for known caregivers / representatives who currently or will assist patient after discharge: BHAVIK VALDEZ, SPOUSE, LOU VALDEZ, DTR, * Verbal permission to speak to the caregivers and representatives has been obtained from the patient. Yes * Community resources currently utilized Private Duty Care [place] Services * Please name any agencies selected above. PRIVATE DUTY PERSONAL CARE FROM [place], 5 DAYS WEEKLY, 2 HOURS PER DAY * Additional services required to return to the preadmission environment? No * Can the patient safely return to the preadmission environment? Yes * Has this patient been hospitalized within the prior 30 days at any hospital? No Coverage Notice Reviewer: [id number] M Martínez Notice Issued Date-Time: 02/25/2019 13:50 Notice Type: IM Discharge Notice Notice Delivered To: Patient Relationship to Patient: Fire Marshal Name: Delivery Method: HAND - Hand Delivered Sarah Days: Prior Verbal Notification: Recipient Understood Notice: Yes Recipient Signature: Yes Med Rec Note Co-signed by Attending: Coverage Notice Comment: Reviewer: LETICIA Martínez Notice Issued Date-Time: 02/26/2019 13:24 Notice Type: Patient Choice Letter Notice Delivered To: Patient Relationship to Patient: Fire Marshal Name: Delivery Method: HAND - Hand Delivered Sarah Days: Prior Verbal Notification: Recipient Understood Notice: Yes Recipient Signature: Yes Med Rec Note Co-signed by Attending: Coverage Notice Comment: ANY ALF REHAB IN [facility] DP export: 02/27/19 10:24 am Patient Name: GUANACO VALDEZ Page [id number] at 1553 All edits/amendments must be made on the electronic document DICTATION DATE: 02/27/19 155 INSURANCE APPLICATION INVESTIGATOR: CARLITO 02/27/191552 RPT#: [id number] DC DATE: STATUS: ADM IN [facility] [address] [place] [address] END OF REPORT
[2019-02-27 15:57] VITALS: BP 164/64
--- NOTE | 2019-02-27 17:17 | MORECARE ---
CASE MANAGEMENT DISCHARGE SUMMARY PATIENT: GUANACO VALDEZ UNIT: [id number] ADM DATE: 02/20/19 AGE: 84 : 36 SEX: M ROOM/BED: D.2102 AUTHOR: MELANIA,DOC PHYSICIAN: REFERRING PHYSICIAN: DENNIS BARAJAS MD DATE OF SERVICE: 02/27/19 Discharge Plan Patient Name: GUANACO VALDEZ Facility: [facility]:[place] : 1935 Planned Disposition: Inpatient Rehab Anticipated Discharge Date: 02/28/19 Discharge Date: Expected LOS: 8 Initial Reviewer: LETICIA Initial Review Date: 02/20/2019 Generated: 02/27/19 6:17 pm Comments DCP- Discharge Planning Updated by LETICIA: Ishmael Martínez on 02/27/19 2:[address] Patient Name: GUANACO VALDEZ Encounter No: [id number] : 1935 Primary Insurance: MEDICARE PART A ONLY Anticipated DC Date: 02-26-2019 Planned Disposition: CUSTODIAL REHAB External Planned Provider: [facility], MEDICARE REHAB BED DCP follow-up note: CM RECEIVED MESSAGE FROM TIM MCARTHUR OF [facility] INPATIENT REH[facility], THEY DECLINED PT THINKING PT IS OUTPATIENT DIALYSIS PT. CM LEFT MESSAGE FROM TIM MCARTHUR THAT PT IS NOT DIALYSIS PATIENT AT THIS TIME. CM FAXED REFERRAL UDATE TO [facility] INPATIENT [phone]. CM FAXED REFERRAL UPDATE TO NAVEEN AT [facility], . PT HAS BEEN DECLINED BY [facility] INPATIENT REHAB. CM WAITING ADMISSION DETERMINATIONS FROM [facility] INPATIENT REHAB [facility]. ISHMAEL MARTÍNEZ, CASE MANAGEMENT Appended by Ishmael Martínez on 02/27/2019 15:49 CDT: CM RECEIVED CALL FROM KYLAH MADDOX OF [facility] WHO WILL COME MORNING OF 02-28-19 TO EVALUATE PT FOR ADMISSION TO [facility]. PT HAS BEEN DECLINED BY [facility] INPATIENT REHAB. CM WAITING ADMISSION DETERMINATIONS FROM [facility] INPATIENT REHAB [facility]. NIKKI CALI DCP- Discharge Planning Updated by [id number]: Ishmael Martínez on 02/26/19 12:[address] Patient Name: GUANACO VALDEZ Encounter No: [id number] : 1935 Primary Insurance: MEDICARE PART A ONLY Anticipated DC Date: 02-26-2019 Planned Disposition: Inpatient Rehab External Planned Provider: [facility] OR SNF REHAB AT [facility] DCP follow-up note: CM SPOKE TO LUIS F OF [facility] INPATIENT REH[facility], PT IS NOT MEETING CRITERIA FOR ADMISSION, RECOMMENDS CUSTODIAL REHAB SERVICES. CM MET WITH PT IN ROOM, DISCUSSED ABOVE AND REHAB OPTIONS. PT AGREEABLE TO REHAB AT [place] IF THEY WILL TAKE HIM OR CUSTODIAL REHAB CLOSER TO HOME. PT ASKED CM TO CALL HIS FOR DISCHARGE PLANNING. CM CALLED BHAVIK JOSÉ MIGUEL, . CM DISCUSSED REHAB OPTIONS. PT'S SPOUSE REPORTS PT WAS ABLE TO GET UP AND WALK TO BATHROOM BUT DOES NOT WALK THAT MUCH SHE WOULD LIKE FOR HIM TO HAVE REHAB TO BE MORE INDEPENDENT IT IS HER AT HOME WITH PT. SHE WOULD LIKE REHAB AT [place] OR WOULD PREFER CUSTODIAL IN [place], ANY OF THEM, IT IS CLOSER TO HER HOME; ONLY ABOUT 8 MILES. CHOICE COMPLETED FOR ANY CUSTODIAL FACILITY IN [place]. CM FAXED REFERRAL TO [facility] INPATIENT [phone]. CM CALLED AND LEFT MESSAGE FROM TIM MCARTHUR OF [place] [facility] AT [phone]. CM FAXED REFERRAL TO [facility], . CM CALLED AND SPOKE TO NAVEEN AT [facility], , WHO WILL SCREEN FOR REHAB ADMISSION. PT HAS BEEN DECLINED BY [facility] INPATIENT REHAB. CM WAITING ADMISSION DETERMINATIONS FROM [facility] INPATIENT REHAB [facility]. ISHMAEL MARTÍNEZ, CASE MANAGEMENT Ishmael Martínez DCP- Discharge Planning Updated by [id number]: Ishmael Martínez on 02/26/19 7:[address] Patient Name: GUANACO VALDEZ Encounter No: [id number] : 1935 Primary Insurance: MEDICARE PART A ONLY Anticipated DC Date: 02-26-2019 Planned Disposition: Inpatient Rehab External Planned Provider:[facility] DCP follow-up note: CM RECEIVED CALL FROM LUIS F OF [facility] INPATIENT REH[facility], ,SHE DID NOT RECEIVE EITHER FAX YESTERDAY. CM REVIEWED AND FOUND BOTH FAX CONFIRMATIONS THAT INDICATED FAXES WENT THROUGH [place]. JASONOVIDED "HARD FAX" LINE AND IS GOING TO GET CM AN ADMISSION DETERMINATION TODAY. CM FAXED INPATIENT REHAB REFERRAL TO [facility] AT [phone] AND HARD FAX LINE, . CM WAITING ADMISSION DETERMINATION FROM [facility] INPATIENT REHAB. CM CONTINUES WAITING [place] MEDICAL BED TO TRANSFER TO [facility]. Ishmael Martínez CASE MANAGEMENT DCP- Discharge Planning Updated by [id number]: Ishmael Martínez on 02/25/19 1:[address] Patient Name: GUANACO VALDEZ Encounter No: [id number] : 1935 Primary Insurance: MEDICARE PART A ONLY Anticipated DC Date: 02-26-2019 Planned Disposition: Inpatient Rehab External Planned Provider[facility] DCP follow-up note: CM SPOKE TO PT IN ROOM REGARDING DISCHARGE PLANNING. PT REPORTS HE IS READY TO GO TO REHAB AND [facility] AND PREFERS THEM OVER [facility] TRANSFER. PT REPORTS HAVING BEEN TO REHAB AT [facility] AND IT IS CLOSE TO HIS HOME. PT REPORTS FAMILY WILL MODEL BUILDER DISPLAY WHEN ACCEPTED. PT IS NOT INTERESTED IN DETENTION REHAB AND FEELS HE CAN PARTICIPATE [place] IN THREE HOURS OF PROGRESSIVE THERAPY PER DAY WITH PLAN TO DISCHARGE HOME WITH FAMILY AFTER REHAB. IMPORTANT MESSAGE FROM MEDICARE PROVIDED AND EXPLAINED. CM CALLED LUIS F OF [facility] INPATIENT REHAB, , PROVIDED REFERRAL INFORMATION. LUIS F IS GOING TO TRY TO GET CM AN ADMISSION DETERMINATION TODAY. CM FAXED INPATIENT REHAB REFERRAL TO [facility] AT [phone]. CM WAITING ADMISSION DETERMINATION FROM [facility] INPATIENT REHAB. CM CONTINUES WAITING [place] MEDICAL BED TO TRANSFER TO [facility]. Ishmael Martínez CASE MANAGEMENT DCP- Discharge Planning Updated by [id number]: Ishmael Martínez on 02/21/19 1:[address] Patient Name: GUANACO VALDEZ Encounter No: [id number] : 1935 Primary Insurance: MEDICARE PART A ONLY Anticipated DC Date: 02-21-2019 Planned Disposition: Acute Care Hospital External Planned Provider: [facility] [place] DCP follow-up note: CM REVIEWED CHART, THERE IS NO TRANSFER BACK AGREEMENT IN THE CHART. PAGED AND SPOKE TO TIM PELLETIER REGARDING ORDER TO TRANSFER TO [place] OR BACK TO [facility]. CM EXPLAINED PROCESS OF TRANSFER, THAT PT IS ON THE [place] TRANSFER LIST WITH NO AVAILABLE BEDS; CM ASKED FOR REASON FOR TRANSFER REQUEST. AFTER TIMBER SURVEYOR CHECKED WITH DR. BARAJAS, CM WAS ADVISED THAT THE DOCTOR ACCEPTED THE PT THINKING PT WAS A DIALYSIS PATIENT AND THAT THE SYMPTOMS THAT ARE BEING MANAGED COULD BE MANAGED AT [facility]. CM SPOKE TO PT IN ROOM WHO IS STILL WILLING FOR [place] TRANSFER OR BACK TO [facility] STATING IT IS CLOSER TO [place] WHERE I LIVE. CM CALLED VEDA, CYCLE REPAIRER, REQUESTED ADMINISTRATIVE APPROVAL. CARISSA PROVIDED APPROVAL FOR ADMIN EXECUTIVE TALENT ACQUISITION CONSULTANT DANIEL GARNER. CM CALLED [facility] EASY ADMIT LINE, , SPOKE TO JOSR AND PROVIDED TRANSFER REQUEST INFORMATION. CM RECEIVED CALL FROM JOSR OF [facility] ADMIT LINE, WHO INFORMED CM THAT PT WAS TRANSFERRED FROM ER TO ER, THIS WILL NOT BE A TRANSFER BACK AND JOSR WILL CHECK TO SEE IF THE HOSPITALISTS AT [facility] WILL ACCEPT AND NOTIFY CM SHORTLY. CM WAITING ADMISSION DETERMINATION FROM [facility] AND BED AVAILABILITY AT [facility] FOR TRANSFER. Ishmael Martínez, CASE MANAGEMENT DCP- Discharge Planning Updated by [id number]: Ishmael Martínez on 02/20/19 4:[address] Patient Name: GUANACO VALDEZ Admission Status: ER Accout number: [id number] Admission Date: 02-20-2019 : 1935 Admission Diagnosis: Attending: DENNIS BARAJAS Current LOS: 1 Anticipated DC Date: 02-20-2019 Planned Disposition: [place] facility Primary Insurance: MEDICARE PART A ONLY PLANNED EXTERNAL PROVIDER: [facility] Discharge Planning Comments: CM RECEIVED ORDER FOR TRANSFER TO [place] [facility] OR TRANSFER BACK TO [facility]. CM MET WITH PT IN ROOM TO DISCUSS DISCHARGE PLANNING AND NEEDS. PT REPORTS LIVING AT HOME DEPENDENTLY WITH SPOUSE. PT HAS PERSONAL CARE FROM [place] 5 DAYS PER WEEK, 2 HOURS PER DAY TO ASSIST WITH BATH, PT'S SPOUSE ASSISTS WITH MEDICATION MANAGEMENT. PT HAS BEDSIDE COMMODE, CANE, POWER SCOOTER, SHOWER CHAIR AND WHEELCHAIR FROM THE [facility]. CM DISCUSSED ORDER FOR TRANSFER. PT STATES HE WOULD LIKE TO TRANSFER TO [place] IN [place] IF POSSIBLE. . CM CALLED [place] EXPEDITOR, GEMMA, , PROVIDED REQUEST FOR [facility] TRANSFER, RENAL TIMBER SURVEYOR AND MED 2 CONTACT INFORMATION . GEMMA INFORMED CM THAT THE ACADEMIC ASSISTANT WOULD CONTACT THE HOSPITAL WHEN BED BECOMES AVAILABLE. CM WAITING BED TO BECOME AVAILABLE FOR [facility] TRANSFER, PT IS ON THE LIST. CM TO CONTINUE TO FOLLOW AND ASSIST NEEDED. Fiscal Assistant: Ishmael Martínez DCPIA - Discharge Planning Initial Assessment Updated by [id number]: Ishmael Martínez on 02/20/19 4:56 pm * Is the patient Alert and Oriented? Yes * How many steps to enter\\exit or inside your home? RAMP * PCP [facility] * Pharmacy [place] [facility] IN [place], [place]. * Preadmission Environment Home with Family * ADLs Partial Dependent * Partial ADLs (Assistance needed) Bathing Medication Management * Equipment Bedside Commode Cane Power Chair or Electric Scooter Shower Chair Wheelchair * Other Equipment [facility] - MEDICAL EQUIPMENT PROVIDER * List name and contact numbers for known caregivers / representatives who currently or will assist patient after discharge: BHAVIK VALDEZ, SPOUSE, LOU VALDEZ, DTR, * Verbal permission to speak to the caregivers and representatives has been obtained from the patient. Yes * Community resources currently utilized Private Duty Care [place] Services * Please name any agencies selected above. PRIVATE DUTY PERSONAL CARE FROM [place], 5 DAYS WEEKLY, 2 HOURS PER DAY * Additional services required to return to the preadmission environment? No * Can the patient safely return to the preadmission environment? Yes * Has this patient been hospitalized within the prior 30 days at any hospital? No Coverage Notice Reviewer: [id number] M Martínez Notice Issued Date-Time: 02/25/2019 13:50 Notice Type: IM Discharge Notice Notice Delivered To: Patient Relationship to Patient: Look Out Tower Fire Watcher Name: Delivery Method: HAND - Hand Delivered Sarah Days: Prior Verbal Notification: Recipient Understood Notice: Yes Recipient Signature: Yes Med Rec Note Co-signed by Attending: Coverage Notice Comment: Reviewer: LETICIA Martínez Notice Issued Date-Time: 02/26/2019 13:24 Notice Type: Patient Choice Letter Notice Delivered To: Patient Relationship to Patient: Look Out Tower Fire Watcher Name: Delivery Method: HAND - Hand Delivered Sarah Days: Prior Verbal Notification: Recipient Understood Notice: Yes Recipient Signature: Yes Med Rec Note Co-signed by Attending: Coverage Notice Comment: ANY CUSTODIAL REHAB IN [facility] DP export: 02/27/19 2:53 pm Patient Name: GUANACO VALDEZ Page 32001 at 1717 All edits/amendments must be made on the electronic document DICTATION DATE: 02/27/191715 TOBACCO GRADER: CARLITO 02/27/191715 RPT#: [id number] DC DATE: STATUS: ADM IN [facility] [address] [place] [address] END OF REPORT
--- NOTE | 2019-02-27 19:21 | NUR ---
PATIENT LAYING IN BED. NO COMPLAINTS AT THIS TIME. NO DISTRESS NOTED.
[2019-02-27 20:00] VITALS: BP 127/62
--- NOTE | 2019-02-27 22:59 | NUR ---
PATIENT LAYING IN BED, EYES CLOSED, CHEST RISING AND FALLING. NO DISTRESS NOTED.
--- NOTE | 2019-02-28 03:37 | NUR ---
PATIENT LAYING IN BED, EYES CLOSED, CHEST RISING AND FALLING. NO DISTRESS NOTED.
[2019-02-28 04:00] VITALS: BP 148/83
--- NOTE | 2019-02-28 06:17 | NUR ---
PATIENT LAYING IN BED. NO COMPLAINTS AT THIS TIME. NO DISTRESS NOTED.
[2019-02-28 08:15] VITALS: BP 145/57
--- NOTE | 2019-02-28 08:58 | MORECARE ---
CASE MANAGEMENT DISCHARGE SUMMARY PATIENT: GUANACO VALDEZ UNIT: [id number] ADM DATE: 02/20/19 AGE: 84 : 37 SEX: M ROOM/BED: D.2102 AUTHOR: GEO VELÁZQUEZ PHYSICIAN: REFERRING PHYSICIAN: DENNIS BARAJAS MD DATE OF SERVICE: 02/28/19 Discharge Plan Patient Name: GUANACO VALDEZ Facility: [facility] : 1935 Planned Disposition: Inpatient Rehab Anticipated Discharge Date: 02/28/19 Discharge Date: Expected LOS: 8 Initial Reviewer: [id number] Initial Review Date: 02/20/2019 Generated: 02/28/19 9:57 am Comments DCP- Discharge Planning Updated by [id number]: Ishmael Martínez on 02/28/19 7:[address] Patient Name: GUANACO VALDEZ Encounter No: [id number] : 1935 Primary Insurance: MEDICARE PART A ONLY Anticipated DC Date: 02-28-2019 Planned Disposition: LONGTERM FACILITY External Planned Provider:[facility], MEDICARE REHAB BED DCP follow-up note: CM FAXED REFERRAL UPDATE TO NAVEEN AT [facility], . CM WAITING NURSING EVALUATION TODAY BY RN KILO [facility]ADDOX [facility] WHO IS TO COME TODAY TO EVALUATE PT FOR ADMISSION TO [facility]. PT HAS BEEN DECLINED BY [facility] AND [facility]. CM WAITING ADMISSION DETERMINATION FROM [facility]. NIKKI CALI DCP- Discharge Planning Updated by [id number]: Ishmael Martínez on 02/27/19 2:[address] Patient Name: GUANACO VALDEZ Encounter No: [id number] : 1935 Primary Insurance: MEDICARE PART A ONLY Anticipated DC Date: 02-26-2019 Planned Disposition: LONGTERM REHAB External Planned Provider: [facility], MEDICARE REHAB BED DCP follow-up note: CM RECEIVED MESSAGE FROM ITM MCARTHUR OF [facility] INPATIENT REH[facility], THEY DECLINED PT THINKING PT IS OUTPATIENT DIALYSIS PT. CM LEFT MESSAGE FROM TIM MCARTHUR THAT PT IS NOT DIALYSIS PATIENT AT THIS TIME. CM FAXED REFERRAL UDATE TO [facility] INPATIENT [phone]. CM FAXED REFERRAL UPDATE TO NAVEEN AT [facility], . PT HAS BEEN DECLINED BY [facility]. CM WAITING ADMISSION DETERMINATIONS FROM [facility]. ISHMAEL MARTÍNEZ, CASE MANAGEMENT Appended by Ishmael Martínez on 02/27/2019 15:49 CDT: CM RECEIVED CALL FROM RN KILO MADDOX OF [facility] WHO WILL COME MORNING OF 02-28-19 TO EVALUATE PT FOR ADMISSION TO [facility]. PT HAS BEEN DECLINED BY [facility]. CM WAITING ADMISSION DETERMINATIONS FROM [facility]. ISHMAEL MARTÍNEZ, CASE MANAGEMENT DCP- Discharge Planning Updated by [id number]: Ishmael Martínez on 02/26/19 12:[address] Patient Name: GUANACO VALDEZ Encounter No: [id number] : 1935 Primary Insurance: MEDICARE PART A ONLY Anticipated DC Date: 02-26-2019 Planned Disposition: Inpatient Rehab External Planned Provider: [facility] REHAB [facility] DCP follow-up note: CM SPOKE TO LUIS F OF [facility] INPAT[facility], PT IS NOT MEETING CRITERIA FOR ADMISSION, RECOMMENDS LONGTERM REHAB SERVICES. CM MET WITH PT IN ROOM, DISCUSSED ABOVE AND REHAB OPTIONS. PT AGREEABLE TO REHAB AT [facility] IF THEY WILL TAKE HIM OR LONGTERM REHAB CLOSER TO HOME. PT ASKED CM TO CALL HIS FOR DISCHARGE PLANNING. CM CALLED BHAVIK VALDEZ, . CM DISCUSSED REHAB OPTIONS. PT'S SPOUSE REPORTS PT WAS ABLE TO GET UP AND WALK TO BATHROOM BUT DOES NOT WALK THAT MUCH SHE WOULD LIKE FOR HIM TO HAVE REHAB TO BE MORE INDEPENDENT IT IS HER AT HOME WITH PT. SHE WOULD LIKE REHAB AT [facility] OR WOULD PREFER LONGTERM IN [place], ANY OF THEM, IT IS CLOSER TO HER HOME; ONLY ABOUT 8 MILES. CHOICE COMPLETED FOR ANY LONGTERM FACILITY IN [place]. CM FAXED REFERRAL TO [facility] INPATIENT [phone]. CM CALLED AND LEFT MESSAGE FROM TIM [facility]AR[facility]UR OF [facility] AT [phone]. CM FAXED REFERRAL TO [facility], . CM CALLED AND SPOKE TO NAVEEN AT [facility], , WHO WILL SCREEN FOR REHAB ADMISSION. PT HAS BEEN DECLINED BY [facility]. CM WAITING ADMISSION DETERMINATIONS FROM [facility]. ISHMAEL MARTÍNEZ, CASE MANAGEMENT Ishmael Martínez DCP- Discharge Planning Updated by [id number]: Ishmael Martínez on 02/26/19 7:[address] Patient Name: GUANACO VALDEZ Encounter No: [id number] : 1935 Primary Insurance: MEDICARE PART A ONLY Anticipated DC Date: 02-26-2019 Planned Disposition: Inpatient Rehab External Planned Provider:[facility] DCP follow-up note: CM RECEIVED CALL FROM LUIS F OF [facility], ,SHE DID NOT RECEIVE EITHER FAX YESTERDAY. CM REVIEWED AND FOUND BOTH FAX CONFIRMATIONS THAT INDICATED FAXES WENT THROUGH [place]. ALEXANDRAAPROVIDED "HARD FAX" LINE AND IS GOING TO GET CM AN ADMISSION DETERMINATION TODAY. CM FAXED INPATIENT REHAB REFERRAL TO [facility] AT [phone] AND HARD FAX LINE, . CM WAITING ADMISSION DETERMINATION FROM [facility]. CM CONTINUES WAITING [facility]ED TO TRANSFER TO [facility]. NIKKI Cali DCP- Discharge Planning Updated by [id number]: Ishmael Martínez on 02/25/19 1:[address] Patient Name: GUANACO VALDEZ Encounter No: [id number] : 1935 Primary Insurance: MEDICARE PART A ONLY Anticipated DC Date: 02-26-2019 Planned Disposition: Inpatient Rehab External Planned Provider: [facility] DCP follow-up note: CM SPOKE TO PT IN ROOM REGARDING DISCHARGE PLANNING. PT REPORTS HE IS READY TO GO TO REHAB AND WANTS REHAB AT [facility] AND PREFERS THEM OVER [facility]. PT REPORTS HAVING BEEN TO REHAB AT [facility] AND IT IS CLOSE TO HIS HOME. PT REPORTS FAMILY WILL GIMP TACKER WHEN ACCEPTED. PT IS NOT INTERESTED IN CARE HOME REHAB AND FEELS HE CAN PARTICIPATE FULLY IN THREE HOURS OF PROGRESSIVE THERAPY PER DAY WITH PLAN TO DISCHARGE HOME WITH FAMILY AFTER REHAB. IMPORTANT MESSAGE FROM MEDICARE PROVIDED AND EXPLAINED. CM CALLED LUIS F OF [facility], , PROVIDED REFERRAL INFORMATION. LUIS F IS GOING TO TRY TO GET CM AN ADMISSION DETERMINATION TODAY. CM FAXED INPATIENT REHAB REFERRAL TO [facility] AT [phone]. CM WAITING ADMISSION DETERMINATION FROM [facility]. CM CONTINUES WAITING [facility] TO TRANSFER TO [facility]. Ishmael Martínez, CASE MANAGEMENT DCP- Discharge Planning Updated by [id number]: Ishmael Martínez on 02/21/19 1:[address] Patient Name: GUANACO VALDEZ Encounter No: [id number] : 1935 Primary Insurance: MEDICARE PART A ONLY Anticipated DC Date: 02-21-2019 Planned Disposition: Acute Care Hospital External Planned Provider: [facility] [place] DCP follow-up note: CM REVIEWED CHART, THERE IS NO TRANSFER BACK AGREEMENT IN THE CHART. PAGED AND SPOKE TO TIM PELLETIER REGARDING ORDER TO TRANSFER TO [facility] OR BACK TO [facility]. CM EXPLAINED PROCESS OF TRANSFER, THAT PT IS ON THE [facility] TRANSFER LIST WITH NO AVAILABLE BEDS; CM ASKED FOR REASON FOR TRANSFER REQUEST. AFTER ACTIVITIES SPECIALIST CHECKED WITH DR. BARAJAS, CM WAS ADVISED THAT THE DOCTOR ACCEPTED THE PT THINKING PT WAS A DIALYSIS PATIENT AND THAT THE SYMPTOMS THAT ARE BEING MANAGED COULD BE MANAGED AT [facility]. CM SPOKE TO PT IN ROOM WHO IS STILL WILLING FOR [facility] TRANSFER OR BACK TO [facility] STATING IT IS CLOSER TO [place] WHERE I LIVE. CM CALLED VEDA, SLASHER TENDER HELPER, REQUESTED ADMINISTRATIVE APPROVAL. CARISSA PROVIDED APPROVAL FOR ADMIN SENIOR ASSISTANT MANAGER DANIEL GARNER. CM CALLED [facility] ADMIT LINE, , SPOKE TO JOSR AND PROVIDED TRANSFER REQUEST INFORMATION. CM RECEIVED CALL FROM JOSR OF [facility] ADMIT LINE, WHO INFORMED CM THAT PT WAS TRANSFERRED FROM ER TO ER, THIS WILL NOT BE A TRANSFER BACK AND JOSR WILL CHECK TO SEE IF THE HOSPITALISTS AT [facility] WILL ACCEPT AND NOTIFY CM SHORTLY. CM WAITING ADMISSION DETERMINATION FROM [facility] AND BED AVAILABILITY AT [facility] FOR TRANSFER. Ishmael Martínez, CASE MANAGEMENT DCP- Discharge Planning Updated by [id number]: Ishmael Martínez on 02/20/19 4:[address] Patient Name: GUANACO VALDEZ Admission Status: ER Accout number: [id number] Admission Date: 02-20-2019 : 1935 Admission Diagnosis: Attending: DENNIS BARAJAS Current LOS: 1 Anticipated DC Date: 02-20-2019 Planned Disposition: [facility] facility Primary Insurance: MEDICARE PART A ONLY PLANNED EXTERNAL PROVIDER: [facility] Discharge Planning Comments: CM RECEIVED ORDER FOR TRANSFER TO [facility] OR TRANSFER BACK TO [facility]. CM MET WITH PT IN ROOM TO DISCUSS DISCHARGE PLANNING AND NEEDS. PT REPORTS LIVING AT HOME DEPENDENTLY WITH SPOUSE. PT HAS PERSONAL CARE FROM [facility] 5 DAYS PER WEEK, 2 HOURS PER DAY TO ASSIST WITH BATH, PT'S SPOUSE ASSISTS WITH MEDICATION MANAGEMENT. PT HAS BEDSIDE COMMODE, CANE, POWER SCOOTER, SHOWER CHAIR AND WHEELCHAIR FROM THE [facility]. CM DISCUSSED ORDER FOR TRANSFER. PT STATES HE WOULD LIKE TO TRANSFER TO [facility] [place] IF POSSIBLE. . CM CALLED [facility] EXP[facility], , PROVIDED REQUEST FOR [facility], RENAL ACTIVITIES SPECIALIST AND MED 2 CONTACT INFORMATION . GEMMA INFORMED CM THAT THE LOW VOLTAGE ELECTRICIAN WOULD CONTACT THE HOSPITAL WHEN BED BECOMES AVAILABLE. CM WAITING BED TO BECOME AVAILABLE FOR [facility] TRANSF[facility], PT IS ON THE LIST. CM TO CONTINUE TO FOLLOW AND ASSIST NEEDED. Customer Solutions Coordinator: Ishmael Martínez DCPIA - Discharge Planning Initial Assessment Updated by [id number]: Ishmael Martínez on 02/20/19 4:56 pm * Is the patient Alert and Oriented? Yes * How many steps to enter\\exit or inside your home? RAMP * PCP [facility] * [facility]acy [facility] IN [place], [place]. * Preadmission Environment Home with Family * ADLs Partial Dependent * Partial ADLs (Assistance needed) Bathing Medication Management * Equipment Bedside Commode Cane Power Chair or Electric Scooter Shower Chair Wheelchair * Other Equipment [facility] - MEDICAL EQUIPMENT PROVIDER * List name and contact numbers for known caregivers / representatives who currently or will assist patient after discharge: BHAVIK VALDEZ, SPOUSE, LOU VALDEZ, DTR, * Verbal permission to speak to the caregivers and representatives has been obtained from the patient. Yes * Community resources currently utilized [facility] * Please name any agencies selected above. [facility], 5 DAYS WEEKLY, 2 HOURS PER DAY * Additional services required to return to the preadmission environment? No * Can the patient safely return to the preadmission environment? Yes * Has this patient been hospitalized within the prior 30 days at any hospital? No Coverage Notice Reviewer: [id number] M Martínez Notice Issued Date-Time: 02/25/2019 13:50 Notice Type: IM Discharge Notice Notice Delivered To: Patient Relationship to Patient: Solution Design Engineer Name: Delivery Method: HAND - Hand Delivered Sarah Days: Prior Verbal Notification: Recipient Understood Notice: Yes Recipient Signature: Yes Med Rec Note Co-signed by Attending: Coverage Notice Comment: Reviewer: [id number] M Martínez Notice Issued Date-Time: 02/26/2019 13:24 Notice Type: Patient Choice Letter Notice Delivered To: Patient Relationship to Patient: Solution Design Engineer Name: Delivery Method: HAND - Hand Delivered Sarah Days: Prior Verbal Notification: Recipient Understood Notice: Yes Recipient Signature: Yes Med Rec Note Co-signed by Attending: Coverage Notice Comment: ANY LONGTERM REHAB IN [facility] DP export: 02/27/19 4:17 pm Patient Name: GUANACO VALDEZ Page [id number] at 0858 All edits/amendments must be made on the electronic document DICTATION DATE: 02/28/1956 DIRECTOR OF MANUFACTURING: CARLITO 02/28/19 0857 RPT#: [id number] DC DATE: STATUS: ADM IN [facility] [address] [place] [address] END OF REPORT
--- NOTE | 2019-02-28 11:13 | MORECARE ---
CASE MANAGEMENT DISCHARGE SUMMARY PATIENT: GUANACO VALDEZ UNIT: [id number] ADM DATE: 02/20/19 AGE: 84 : [birth year] SEX: M ROOM/BED: D.2102 AUTHOR: GEO VELÁZQUEZ PHYSICIAN: REFERRING PHYSICIAN: DENNIS BARAJAS MD DATE OF SERVICE: 02/28/19 Discharge Plan Patient Name: GUANACO VALDEZ [facility]: [facility] : 1935 Planned Disposition: Prison Facility Anticipated Discharge Date: 02/28/19 Discharge Date: Expected LOS: 8 Initial Reviewer: [id number] Initial Review Date: 02/20/2019 Generated: 02/28/19 12:13 pm Comments DCP- Discharge Planning Updated by [id number]: Ishmael Martínez on 02/28/19 10:[address] Patient Name: GUANACO VALDEZ Encounter No: [id number] : 1935 Primary Insurance: MEDICARE PART A ONLY Anticipated DC Date: 02-28-2019 Planned Disposition: Prison Facility External Planned Provider: [facility], MEDICARE REHAB BED DCP follow-up note: CM RECEIVED CALL FROM BHAVIK MADDOX RN, WHO ADVISED THAT SHE HAS ASSESSED PT THIS MORNING AND THEY WILL ACCEPT TODAY FOR REHAB AT [facility], [place] TO [place] AT 1:30PM TODAY. CM NOTIFIED PT IN ROOM, PT WILLING FOR DISCHARGE TO REHAB TODAY. PT ASKED THAT CM CALL HIS . CM CALLED AND NOTIFIED PT'S SPOUSE OF REHAB ADMISSION TODAY. CM RECEIVED DISCHARGE ORDER, FAXED DISCHARGE INFORMATION TO [facility], . NURSE REPORT TO BE CALLED TO [facility], . [facility] TO [place] PT AT 1330 HOURS TODAY. NIKKI Cali DCP- Discharge Planning Updated by [id number]: Ishmael Martínez on 02/28/19 7:[address] Patient Name: GUANACO VALDEZ Encounter No: [id number] : 1935 Primary Insurance: MEDICARE PART A ONLY Anticipated DC Date: 02-28-2019 Planned Disposition: DETENTION FACILITY External Planned Provider:[facility], MEDICARE REHAB BED DCP follow-up note: CM FAXED REFERRAL UPDATE TO NAVEEN AT [facility], . CM WAITING NURSING EVALUATION TODAY BY KY[facility]H [facility]ADDOX [facility] WHO IS TO COME TODAY TO EVALUATE PT FOR ADMISSION TO [facility]. PT HAS BEEN DECLINED BY [facility] AND [facility]. CM WAITING ADMISSION DETERMINATION FROM [facility]. NIKKI CALI DCP- Discharge Planning Updated by [id number]: Ishmael Martínez on 02/27/19 2:[address] Patient Name: GUANACO VALDEZ Encounter No: [id number] : 1935 Primary Insurance: MEDICARE PART A ONLY Anticipated DC Date: 02-26-2019 Planned Disposition: DETENTION REHAB External Planned Provider: [facility], MEDICARE REHAB BED DCP follow-up note: CM RECEIVED MESSAGE FROM TIM MCARTHUR OF [facility], THEY DECLINED PT THINKING PT IS OUTPATIENT DIALYSIS PT. CM LEFT MESSAGE FROM TIM MCARTHUR THAT PT IS NOT DIALYSIS PATIENT AT THIS TIME. CM FAXED REFERRAL UDATE TO [facility] [id number]. CM FAXED REFERRAL UPDATE TO NAVEEN AT [facility], . PT HAS BEEN DECLINED BY [facility]. CM WAITING ADMISSION DETERMINATIONS FROM [facility]HAB [facility]. ISHMAEL MARTÍNEZ CASE MANAGEMENT Appended by Ishmael Martínez on 02/27/2019 15:49 CDT: CM RECEIVED CALL FROM KYLAH MADDOX OF [facility] WHO WILL COME MORNING OF 02-28-19 TO EVALUATE PT FOR ADMISSION TO [facility]. PT HAS BEEN DECLINED BY [facility]. CM WAITING ADMISSION DETERMINATIONS FROM [facility]. NIKKI CALI DCP- Discharge Planning Updated by [id number]: Ishmael Martínez on 02/26/19 12:[address] Patient Name: GUANACO VALDEZ Encounter No: [id number] : 1935 Primary Insurance: MEDICARE PART A ONLY Anticipated DC Date: 02-26-2019 Planned Disposition: Inpatient Rehab External Planned Provider: [facility] OR [facility] REHAB AT [facility] DCP follow-up note: CM SPOKE TO LUIS F OF [facility] IN[facility]IENT REH[facility], PT IS NOT MEETING CRITERIA FOR ADMISSION, RECOMMENDS [facility] REHAB SERVICES. CM MET WITH PT IN ROOM, DISCUSSED ABOVE AND REHAB OPTIONS. PT AGREEABLE TO [place]HAB AT [place] IF THEY WILL TAKE HIM OR [facility] CLOSER TO HOME. PT ASKED CM TO CALL HIS FOR DISCHARGE PLANNING. CM CALLED BHAVIK MELCHORLS, . CM DISCUSSED REHAB OPTIONS. PT'S SPOUSE REPORTS PT WAS ABLE TO GET UP AND WALK TO BATHROOM BUT DOES NOT WALK THAT MUCH SHE WOULD LIKE FOR HIM TO HAVE REHAB TO BE MORE INDEPENDENT IT IS HER AT HOME WITH PT. SHE WOULD LIKE REHAB AT [facility] OR WOULD PREFER DETENTION IN [place], ANY OF THEM, IT IS CLOSER TO HER HOME; ONLY ABOUT 8 MILES. CHOICE COMPLETED FOR ANY DETENTION FACILITY IN [place]. CM FAXED REFERRAL TO [facility] IN[facility] [phone]. CM CALLED AND LEFT MESSAGE FROM TIM MCARTHUR OF [facility] AT [phone]. CM FAXED REFERRAL TO [facility], . CM CALLED AND SPOKE TO NAVEEN AT [facility], , WHO WILL SCREEN FOR REHAB ADMISSION. PT HAS BEEN DECLINED BY [facility]. CM WAITING ADMISSION DETERMINATIONS FROM [facility]. ISHMAEL MARTÍNEZ, CASE MANAGEMENT Ishmael Martínez DCP- Discharge Planning Updated by [id number]: Ishmael Martínez on 02/26/19 7:[address] Patient Name: GUANACO VALDEZ Encounter No: [id number] : 1935 Primary Insurance: MEDICARE PART A ONLY Anticipated DC Date: 02-26-2019 Planned Disposition: Inpatient Rehab External Planned Provider:[facility] DCP follow-up note: CM RECEIVED CALL FROM LUIS F OF [facility] RE[facility], ,SHE DID NOT RECEIVE EITHER FAX YESTERDAY. CM REVIEWED AND FOUND BOTH FAX CONFIRMATIONS THAT INDICATED FAXES WENT THROUGH [place]. KAYLAPROVIDED "HARD FAX" LINE AND IS GOING TO GET CM AN ADMISSION DETERMINATION TODAY. CM FAXED INPATIENT REHAB REFERRAL TO [facility] AT [phone] AND HARD FAX LINE, . CM WAITING ADMISSION DETERMINATION FROM [facility]. CM CONTINUES WAITING [facility] TO TRANSFER TO [facility]. NIKKI Cali DCP- Discharge Planning Updated by [id number]: Ishmael Martínez on 02/25/19 1:[address] Patient Name: GUANACO VALDEZ Encounter No: [id number] : 1935 Primary Insurance: MEDICARE PART A ONLY Anticipated DC Date: 02-26-2019 Planned Disposition: Inpatient Rehab External Planned Provider: [facility] DCP follow-up note: CM SPOKE TO PT IN ROOM REGARDING DISCHARGE PLANNING. PT REPORTS HE IS READY TO GO TO REHAB AND [facility] AND PREFERS THEM OVER [facility]. PT REPORTS HAVING BEEN TO REHAB AT [facility] AND IT IS CLOSE TO HIS HOME. PT REPORTS FAMILY WILL [place] [facility] WHEN ACCEPTED. PT IS NOT INTERESTED IN HALF-WAY REHAB AND FEELS HE CAN PARTICIPATE FULLY IN THREE HOURS OF PROGRESSIVE THERAPY PER DAY WITH PLAN TO DISCHARGE HOME WITH FAMILY AFTER REHAB. IMPORTANT MESSAGE FROM MEDICARE PROVIDED AND EXPLAINED. CM CALLED LUIS F OF [facility], , PROVIDED REFERRAL INFORMATION. LUIS F IS GOING TO TRY TO GET CM AN ADMISSION DETERMINATION TODAY. CM FAXED INPATIENT REHAB REFERRAL TO [facility] AT [phone]. CM WAITING ADMISSION DETERMINATION FROM [facility]. CM CONTINUES WAITING [facility]. NIKKI Cali DCP- Discharge Planning Updated by [id number]: Ishmael Martínez on 02/21/19 1:[address] Patient Name: GUANACO VALDEZ Encounter No: [id number] : 1935 Primary Insurance: MEDICARE PART A ONLY Anticipated DC Date: 02-21-2019 Planned Disposition: Acute Care Hospital External Planned Provider: [facility] DCP follow-up note: CM REVIEWED CHART, THERE IS NO TRANSFER BACK AGREEMENT IN THE CHART. PAGED AND SPOKE TO TIM PELLETIER REGARDING ORDER TO TRANSFER TO [facility] OR BACK TO [facility]. CM EXPLAINED PROCESS OF TRANSFER, THAT PT IS ON THE [facility] TRANSFER LIST WITH NO AVAILABLE BEDS; CM ASKED FOR REASON FOR TRANSFER REQUEST. AFTER TIM CHECKED WITH DR. BARAJAS, CM WAS ADVISED THAT THE DOCTOR ACCEPTED THE PT THINKING PT WAS A DIALYSIS PATIENT AND THAT THE SYMPTOMS THAT ARE BEING MANAGED COULD BE MANAGED AT [facility]. CM SPOKE TO PT IN ROOM WHO IS STILL WILLING FOR [facility] TRANSFER OR BACK TO [facility] STATING IT IS CLOSER TO [place] WHERE I LIVE. CM CALLED [facility], MANAGEMENT ARCHITECT, REQUESTED ADMINISTRATIVE APPROVAL. CARISSA PROVIDED APPROVAL FOR ADMIN BUSINESS MANAGEMENT INTERN DANIEL GARNER. CM CALLED [facility] ADMIT LINE, , SPOKE TO JOSR AND PROVIDED TRANSFER REQUEST INFORMATION. CM RECEIVED CALL FROM JOSR OF [facility], WHO INFORMED CM THAT PT WAS TRANSFERRED FROM ER TO ER, THIS WILL NOT BE A TRANSFER BACK AND JOSR WILL CHECK TO SEE IF THE HOSPITALISTS AT [facility] WILL ACCEPT AND NOTIFY CM SHORTLY. CM WAITING ADMISSION DETERMINATION FROM [facility] AND BED AVAILABILITY AT [facility] FOR TRANSFER. Ishmael Martínez, CASE MANAGEMENT DCP- Discharge Planning Updated by [id number]: Ishmael Martínez on 02/20/19 4:[address] Patient Name: GUANACO VALDEZ Admission Status: ER Accout number: [id number] Admission Date: 02-20-2019 : 1935 Admission Diagnosis: Attending: DENNIS BARAJAS Current LOS: 1 Anticipated DC Date: 02-20-2019 Planned Disposition: [facility] facility Primary Insurance: MEDICARE PART A ONLY PLANNED EXTERNAL PROVIDER: [facility] Discharge Planning Comments: CM RECEIVED ORDER FOR TRANSFER TO [facility] OR TRANSFER BACK TO [facility]. CM MET WITH PT IN ROOM TO DISCUSS DISCHARGE PLANNING AND NEEDS. PT REPORTS LIVING AT HOME DEPENDENTLY WITH SPOUSE. PT HAS PERSONAL CARE FROM [facility] 5 DAYS PER WEEK, 2 HOURS PER DAY TO ASSIST WITH BATH, PT'S SPOUSE ASSISTS WITH MEDICATION MANAGEMENT. PT HAS BEDSIDE COMMODE, CANE, POWER SCOOTER, SHOWER CHAIR AND WHEELCHAIR FROM THE [facility]. CM DISCUSSED ORDER FOR TRANSFER. PT STATES HE WOULD LIKE TO TRANSFER TO [facility] IN [place] IF POSSIBLE. . CM CALLED [facility] EXPEDITORGEMMA, , PROVIDED REQUEST FOR [facility] TRANSFER, RENAL WASTEWATER TECHNICIAN AND MED 2 CONTACT INFORMATION . GEMMA INFORMED CM THAT THE HEAD OF VISUAL MERCHANDISING WOULD CONTACT THE HOSPITAL WHEN BED BECOMES AVAILABLE. CM WAITING BED TO BECOME AVAILABLE FOR [facility] TRANSFER, PT IS ON THE LIST. CM TO CONTINUE TO FOLLOW AND ASSIST NEEDED. Yarn Preparation Supervisor: Ishmael Martínez DCPIA - Discharge Planning Initial Assessment Updated by LETICIA: Ishmael Martínez on 02/20/19 4:56 pm * Is the patient Alert and Oriented? Yes * How many steps to enter\\exit or inside your home? RAMP * PCP [facility] * [facility] [place] * Preadmission Environment Home with Family * ADLs Partial Dependent * Partial ADLs (Assistance needed) Bathing Medication Management * Equipment Bedside Commode Cane Power Chair or Electric Scooter Shower Chair Wheelchair * Other Equipment [facility] - MEDICAL EQUIPMENT PROVIDER * List name and contact numbers for known caregivers / representatives who currently or will assist patient after discharge: BHAVIK VALDEZ, SPOUSE, LOU VALDEZ, DTR, * Verbal permission to speak to the caregivers and representatives has been obtained from the patient. Yes * Community resources currently utilized [facility] * Please name any agencies selected above. [facility]Y P[facility]AL [facility] FROM [place], 5 DAYS WEEKLY, 2 HOURS PER DAY * Additional services required to return to the preadmission environment? No * Can the patient safely return to the preadmission environment? Yes * Has this patient been hospitalized within the prior 30 days at any hospital? No Coverage Notice Reviewer: LETICIA Martínez Notice Issued Date-Time: 02/25/2019 13:50 Notice Type: IM Discharge Notice Notice Delivered To: Patient Relationship to Patient: Feltmaker And Weigher Name: Delivery Method: HAND - Hand Delivered Sarah Days: Prior Verbal Notification: Recipient Understood Notice: Yes Recipient Signature: Yes Med Rec Note Co-signed by Attending: Coverage Notice Comment: Reviewer: LETICIA Martínez Notice Issued Date-Time: 02/26/2019 13:24 Notice Type: Patient Choice Letter Notice Delivered To: Patient Relationship to Patient: Feltmaker And Weigher Name: Delivery Method: HAND - Hand Delivered Sarah Days: Prior Verbal Notification: Recipient Understood Notice: Yes Recipient Signature: Yes Med Rec Note Co-signed by Attending: Coverage Notice Comment: ANY [facility] REHAB IN [facility] DP export: 02/28/19 7:57 am Patient Name: GUANACO VALDEZ Page 11998 at 1113 All edits/amendments must be made on the electronic document DICTATION DATE: 02/28/191112 HABILITATION ASSISTANT: CARLITO 02/28/191112 RPT#: [id number] DC DATE: STATUS: ADM IN [facility] [address] [place] [address] END OF REPORT
--- NOTE | 2019-02-28 11:27 | MORECARE ---
CASE MANAGEMENT DISCHARGE SUMMARY PATIENT: GUANACO VALDEZ UNIT: [id number] ADM DATE: 02/20/19 AGE: 84 : [birth year] SEX: M ROOM/BED: D.2102 AUTHOR: MELANIADOC PHYSICIAN: REFERRING PHYSICIAN: DENNIS BARAJAS MD DATE OF SERVICE: 02/28/19 Discharge Plan Patient Name: GUANACO VALDEZ Facility: [facility] : 1935 Planned Disposition: Care Home Facility Anticipated Discharge Date: 02/28/19 Discharge Date: Expected LOS: 8 Initial Reviewer: [id number] Initial Review Date: 02/20/2019 Generated: 02/28/19 12:27 pm Comments DCP- Discharge Planning Updated by [id number]: Ishmael Martínez on 02/28/19 10:[address] Patient Name: GUANACO VALDEZ Encounter No: [id number] : 1935 Primary Insurance: MEDICARE PART A ONLY Anticipated DC Date: 02-28-2019 Planned Disposition: Care Home Facility External Planned Provider: [facility], MEDICARE REHAB BED DCP follow-up note: CM RECEIVED CALL FROM BHAVIK MADDOX RN, WHO ADVISED THAT SHE HAS ASSESSED PT THIS MORNING AND THEY WILL ACCEPT TODAY FOR REHAB AT [facility] TO SPECIAL INVESTIGATOR AT 1:30PM TODAY. CM NOTIFIED PT IN ROOM, PT WILLING FOR DISCHARGE TO REHAB TODAY. PT ASKED THAT CM CALL HIS . CM CALLED AND NOTIFIED PT'S SPOUSE OF REHAB ADMISSION TODAY. CM RECEIVED DISCHARGE ORDER, FAXED DISCHARGE INFORMATION TO [facility], . NURSE REPORT TO BE CALLED TO [facility], . [facility] [place] TO SPECIAL INVESTIGATOR PT AT 1330 HOURS TODAY. Ishmael Martínez, CASE MANAGEMENT Appended by Ishmael Martínez on 02/28/2019 11:23 CDT: IMPORTANT MESSAGE FROM MEDICARE PROVIDED AND EXPLAINED TO PT IN ROOM. NURSE REPORT TO BE CALLED TO [facility], . [facility] [place] TO SPECIAL INVESTIGATOR PT AT 1330 HOURS TODAY. NIKKI Cali DCP- Discharge Planning Updated by [id number]: Ishmael Martínez on 02/28/19 7:[address] Patient Name: GUANACO VALDEZ Encounter No: [id number] : 1935 Primary Insurance: MEDICARE PART A ONLY Anticipated DC Date: 02-28-2019 Planned Disposition: [facility] FACILITY External Planned Provider:[facility], MEDICARE REHAB BED DCP follow-up note: CM FAXED REFERRAL UPDATE TO NAVEEN AT [facility], . CM WAITING NURSING EVALUATION TODAY BY KYLAH [facility]ADDOX [facility] WHO IS TO COME TODAY TO EVALUATE PT FOR ADMISSION TO [facility]. PT HAS BEEN DECLINED BY [facility] AND [facility]. CM WAITING ADMISSION DETERMINATION FROM [facility]. NIKKI CALI DCP- Discharge Planning Updated by [id number]: Ishmael Martínez on 02/27/19 2:[address] Patient Name: GUANACO VALDEZ Encounter No: [id number] : 1935 Primary Insurance: MEDICARE PART A ONLY Anticipated DC Date: 02-26-2019 Planned Disposition: [facility] REHAB External Planned Provider: [facility], MEDICARE REHAB BED DCP follow-up note: CM RECEIVED MESSAGE FROM TIM MCARTHUR OF [facility], THEY DECLINED PT THINKING PT IS OUTPATIENT DIALYSIS PT. CM LEFT MESSAGE FROM TIM MCARTHUR THAT PT IS NOT DIALYSIS PATIENT AT THIS TIME. CM FAXED REFERRAL UDATE TO [facility] IN[facility] [phone]. CM FAXED REFERRAL UPDATE TO NAVEEN AT [facility], . PT HAS BEEN DECLINED BY [facility]. CM WAITING ADMISSION DETERMINATIONS FROM [facility]. ISHMAEL MARTÍNEZ, CASE MANAGEMENT Appended by Ishmael Martínez on 02/27/2019 15:49 CDT: CM RECEIVED CALL FROM KYLAH MADDOX OF [facility] WHO WILL COME MORNING OF 02-28-19 TO EVALUATE PT FOR ADMISSION TO [facility]. PT HAS BEEN DECLINED BY [facility]. CM WAITING ADMISSION DETERMINATIONS FROM [facility]HAB [facility]. NIKKI CALI MANAGEMENT DCP- Discharge Planning Updated by [id number]: Ishmael Martínez on 02/26/19 12:[address] Patient Name: GUANACO VALDEZ Encounter No: [id number] : 1935 Primary Insurance: MEDICARE PART A ONLY Anticipated DC Date: 02-26-2019 Planned Disposition: Inpatient Rehab External Planned Provider: [facility] REHAB AT [facility] DCP follow-up note: CM SPOKE TO LUIS F OF [facility] IN[facility] REH[facility], PT IS NOT MEETING CRITERIA FOR ADMISSION, RECOMMENDS [facility] RE[facility]AB SERVICES. CM MET WITH PT IN ROOM, DISCUSSED ABOVE AND REHAB OPTIONS. PT AGREEABLE TO [place] IF [place] TAKE HIM OR [facility] CLOSER TO HOME. PT ASKED CM TO CALL HIS FOR DISCHARGE PLANNING. CM CALLED BHAVIK VALDEZ, . CM DISCUSSED REHAB OPTIONS. PT'S SPOUSE REPORTS PT WAS ABLE TO GET UP AND WALK TO BATHROOM BUT DOES NOT WALK THAT MUCH SHE WOULD LIKE FOR HIM TO HAVE REHAB TO BE MORE INDEPENDENT IT IS HER AT HOME WITH PT. [place] LIKE [place] OR WOULD PREFER [facility] IN [place], ANY OF THEM, IT IS CLOSER TO HER HOME; ONLY ABOUT 8 MILES. CHOICE COMPLETED FOR ANY [facility] FACILITY IN [place]. CM FAXED REFERRAL TO [facility] IN[facility]IENT [phone]. CM CALLED AND LEFT MESSAGE FROM TIM MCARTHUR OF [facility] AT [phone]. CM FAXED REFERRAL TO [facility], . CM CALLED AND SPOKE TO NAVEEN AT [facility], , WHO WILL SCREEN FOR REHAB ADMISSION. PT HAS BEEN DECLINED BY [facility]. CM WAITING ADMISSION DETERMINATIONS FROM [facility]. ISHMAEL MARTÍNEZ, CASE MANAGEMENT Ishmael Martínez DCP- Discharge Planning Updated by [id number]: Ishmael Martínez on 02/26/19 7:[address] Patient Name: GUANACO VALDEZ Encounter No: [id number] : 1935 Primary Insurance: MEDICARE PART A ONLY Anticipated DC Date: 02-26-2019 Planned Disposition: Inpatient Rehab External [facility] DCP follow-up note: CM RECEIVED CALL FROM LUIS F OF [facility], ,SHE DID NOT RECEIVE EITHER FAX YESTERDAY. CM REVIEWED AND FOUND BOTH FAX CONFIRMATIONS THAT INDICATED FAXES WENT THROUGH [place]. JASONOVIDED "HARD FAX" LINE AND IS GOING TO GET CM AN ADMISSION DETERMINATION TODAY. CM FAXED INPATIENT REHAB REFERRAL TO [facility] AT [phone] AND HARD FAX LINE, . CM WAITING ADMISSION DETERMINATION FROM [facility]. CM CONTINUES WAITING [place] [facility]SFER TO [facility]. Ishmael Martínez CASE MANAGEMENT DCP- Discharge Planning Updated by [id number]: Ishmael Martínez on 02/25/19 1:[address] Patient Name: GUANACO VALDEZ Encounter No: [id number] : 1935 Primary Insurance: MEDICARE PART A ONLY Anticipated DC Date: 02-26-2019 Planned Disposition: Inpatient Rehab External [facility] DCP follow-up note: CM SPOKE TO PT IN ROOM REGARDING DISCHARGE PLANNING. PT REPORTS HE IS READY TO GO TO REHAB AND WANTS REHAB AT [facility] AND [facility] OVER [facility]. PT REPORTS HAVING BEEN TO REHAB AT [facility] AND IT IS CLOSE TO HIS HOME. PT REPORTS FAMILY WILL SPECIAL INVESTIGATOR WHEN ACCEPTED. PT IS NOT INTERESTED IN [facility] REHAB AND FEELS HE CAN PARTICIPATE FULLY IN THREE HOURS OF PROGRESSIVE THERAPY PER DAY WITH PLAN TO DISCHARGE HOME WITH FAMILY AFTER REHAB. IMPORTANT MESSAGE FROM MEDICARE PROVIDED AND EXPLAINED. CM CALLED LUIS F OF [facility], , PROVIDED REFERRAL INFORMATION. LUIS F IS GOING TO TRY TO GET CM AN ADMISSION DETERMINATION TODAY. CM FAXED INPATIENT REHAB REFERRAL TO [facility] AT [phone]. CM WAITING ADMISSION DETERMINATION FROM [facility]. CM CONTINUES [place]ITING [place] [facility]. Ishmael Martínez CASE MANAGEMENT DCP- Discharge Planning Updated by [id number]: Ishmael Martínez on 02/21/19 1:[address] Patient Name: GUANACO VALDEZ Encounter No: [id number] : 1935 Primary Insurance: MEDICARE PART A ONLY Anticipated DC Date: 02-21-2019 Planned Disposition: Acute Care Hospital External Planned Provider: [facility] [place] DCP follow-up note: CM REVIEWED CHART, THERE IS NO TRANSFER BACK AGREEMENT IN THE CHART. PAGED AND SPOKE TO TIM PELLETIER REGARDING ORDER TO TRANSFER TO [place] OR BACK TO [facility]. CM EXPLAINED PROCESS OF TRANSFER, THAT [place] TRANSFER LIST WITH NO AVAILABLE BEDS; CM ASKED FOR REASON FOR TRANSFER REQUEST. AFTER VISUAL PRESENTATION MANAGER CHECKED WITH DR. BARAJAS, CM WAS ADVISED THAT THE DOCTOR ACCEPTED THE PT THINKING PT WAS A DIALYSIS PATIENT AND THAT THE SYMPTOMS THAT ARE BEING MANAGED COULD BE MANAGED AT [facility]. CM SPOKE TO PT IN ROOM WHO IS STILL WILLING FOR [place] TRANSFER OR BACK TO [facility] STATING IT IS CLOSER TO [place] WHERE I LIVE. CM CALLED [employer], SENIOR SALES COMPENSATION ANALYST, REQUESTED ADMINISTRATIVE APPROVAL. ACRISSA PROVIDED APPROVAL FOR ADMIN CHEMICALS FERMENTATION OPERATOR DANIEL GARNER. CM CALLED [facility] ADMIT LINE, , SPOKE TO JOSR AND PROVIDED TRANSFER REQUEST INFORMATION. CM RECEIVED CALL FROM JOSR OF [facility] ADMIT [facility], WHO INFORMED CM THAT PT WAS TRANSFERRED FROM ER TO ER, THIS WILL NOT BE A TRANSFER BACK AND JOSR WILL CHECK TO SEE IF THE HOSPITALISTS AT [facility] WILL ACCEPT AND NOTIFY CM SHORTLY. CM WAITING ADMISSION DETERMINATION FROM [facility] AND BED AVAILABILITY AT [facility] FOR TRANSFER. Ishmael Martínez, CASE MANAGEMENT DCP- Discharge Planning Updated by [id number]: Ishmael Martínez on 02/20/19 4:[address] Patient Name: GUANACO VALDEZ Admission Status: ER Accout number: [id number] Admission Date: 02-20-2019 : 1935 Admission Diagnosis: Attending: DENNIS BARAJAS Current LOS: 1 Anticipated DC Date: 02-20-2019 [place]position[place] Primary Insurance: MEDICARE PART A ONLY PLANNED EXTERNAL PROVIDER: [facility] Discharge Planning Comments: CM RECEIVED ORDER FOR [place] [facility] OR [place]SFER BACK TO [facility]. CM MET WITH PT IN ROOM TO DISCUSS DISCHARGE PLANNING AND NEEDS. PT REPORTS LIVING AT HOME DEPENDENTLY WITH SPOUSE. PT [place] PERSONAL CARE FROM [place] 5 DAYS PER WEEK, 2 HOURS PER DAY TO ASSIST WITH BATH, PT'S SPOUSE ASSISTS WITH MEDICATION MANAGEMENT. PT HAS BEDSIDE COMMODE, CANE, POWER SCOOTER, SHOWER CHAIR AND [facility]. CM DISCUSSED ORDER FOR TRANSFER. PT STATES HE WOULD LIKE TO TRANSFER TO [place] IF POSSIBLE. . CM CALLED [place] EXPEDITOR, GEMMA, , PROVIDED REQUEST FOR [facility], RENAL VISUAL PRESENTATION MANAGER AND MED 2 CONTACT INFORMATION . GEMMA INFORMED CM THAT THE LOG YARD DERRICK OPERATOR WOULD CONTACT THE HOSPITAL WHEN BED BECOMES AVAILABLE. CM WAITING BED TO BECOME AVAILABLE FOR [facility], PT IS ON THE LIST. CM TO CONTINUE TO FOLLOW AND ASSIST NEEDED. Lpn Rn: Ishmael Martínez DCPIA - Discharge Planning Initial Assessment Updated by LETICIA: Ishmael Martínez on 02/20/19 4:56 pm * Is the patient Alert and Oriented? Yes * How many steps to enter\\exit or inside your home? RAMP * PCP [facility] * [facility]acy [place] [facility] IN [place], [place]. * Preadmission Environment Home with Family * ADLs Partial Dependent * Partial ADLs (Assistance needed) Bathing Medication Management * Equipment Bedside Commode Cane Power Chair or Electric Scooter Shower Chair Wheelchair * Other Equipment [facility] - MEDICAL EQUIPMENT PROVIDER * List name and contact numbers for known caregivers / representatives who currently or will assist patient after discharge: BHAVIK VALDEZ, SPOUSE, LOU VALDEZ, DTR, * Verbal permission to speak to the caregivers and representatives has been obtained from the patient. Yes * Community resources currently utilized [facility] [place] [facility] * Please name any agencies selected above. [facility] [place], 5 DAYS WEEKLY, 2 HOURS PER DAY * Additional services required to return to the preadmission environment? No * Can the patient safely return to the preadmission environment? Yes * Has this patient been hospitalized within the prior 30 days at any hospital? No Coverage Notice Reviewer: LETICIA Martínez Notice Issued Date-Time: 02/25/2019 13:50 Notice Type: IM Discharge Notice Notice Delivered To: Patient Relationship to Patient: Drywall Finisher Name: Delivery Method: HAND - Hand Delivered Sarah Days: Prior Verbal Notification: Recipient Understood Notice: Yes Recipient Signature: Yes Med Rec Note Co-signed by Attending: Coverage Notice Comment: Reviewer: LETICIA Martínez Notice Issued Date-Time: 02/26/2019 13:24 Notice Type: Patient Choice Letter Notice Delivered To: Patient Relationship to Patient: Drywall Finisher Name: Delivery Method: HAND - Hand Delivered Sarah Days: Prior Verbal Notification: Recipient Understood Notice: Yes Recipient Signature: Yes Med Rec Note Co-signed by Attending: Coverage Notice Comment: ANY [facility] RE[facility]AB IN [place] Reviewer: [id number] Jaz Martínez Notice Issued Date-Time: 02/28/2019 11:10 Notice Type: IM Discharge Notice Notice Delivered To: Patient Relationship to Patient: Drywall Finisher Name: Delivery Method: HAND - Hand Delivered Sarah Days: Prior Verbal Notification: Recipient Understood Notice: Yes Recipient Signature: Yes Med Rec Note Co-signed by Attending: Coverage Notice Comment: Last DP export: 02/28/19 10:13 am Patient Name: GUANACO VALDEZ Page [id number] at 1127 All edits/amendments must be made on the electronic document DICTATION DATE: 02/28/191126 NECK PINNER: [email or web address] 02/28/19 1127 RPT#: [id number] DC DATE: STATUS: ADM IN [facility] [address] [place] [address] END OF REPORT
--- NOTE | 2019-02-28 13:16 | NUR ---
REPORT CALLED TO [facility], SPOKE WITH BRAYDEN LARA.
--- NOTE | 2019-02-28 14:43 | NUR ---
I have reviewed this patient and I concur with the Shift Assessment completed by the Licensed Practical Nurse today this shift.
== END 2019-02-28 16:02 | DRG 641 ==
LOC: D.ER 20:48 → D.M2 02-20 00:24
PROVIDERS: Family Medicine; ADMIT Internal Medicine Nephrology; ATTEND Internal Medicine Nephrology
DX: E87.5 Hyperkalemia (principal); N19 Unspecified kidney failure; E11.9 Type 2 diabetes mellitus without complications; I10 Essential (primary) hypertension; K52.9 Noninfective gastroenteritis and colitis, unspecified; Z86.73 Personal history of transient ischemic attack (TIA), and cerebral infarction without residual deficits; K21.9 Gastro-esophageal reflux disease without esophagitis; I48.91 Unspecified atrial fibrillation; Z91.81 History of falling